=== PATIENT | male | born 1960 | race Two or more races ===

== ENCOUNTER 2023-08-13 13:39 | Inpatient (IN) | payer OTHER, SELFPAY ==
[2023-08-13] VITALS (21 sets, daily range): BP systolic 113–148; BP diastolic 70–86; PULSE 69–77; BMI 23.1
--- NOTE | 2023-08-13 10:29 | ED.GENMED ---
History of Present Illness
General
Chief Complaint: Abnormal Lab Value
Source: patient, records and family
Exam Limitations: none
Time Seen by Provider: 08/13/23 09:40
Nursing documentation reviewed up to this point in time: agreed with
Travel History
Have you had any contact with someone who has COVID-19?: No
Do you have any symptoms of coronavirus? Fever > 100 degrees, chills, cough, shortness of breath, sore throat, loss of taste or smell, muscle aches, or headache?: No
History of Present Illness
History of Present Illness:
63-year-old male originally from [facility] not living in the history of peripheral vascular disease status post bypass surgery Sam maintained on aspirin and Xarelto and statin, no longer on hypertensive meds, recently saw gastroenterology DrYola
Jessica, with some dyspepsia type symptoms, started on a PPI and ordered an upper GI, as he is on Xarelto apparently cannot stop it as he has had recurrent bleeding and clotting requiring repeat surgeries, transfusions daughter states he looks pale
he has had some fatigue, no chest pain no shortness of breath denies any dark or bloody stools never had an upper or lower endoscopy, he is an ex-smoker stopped due to his vascular surgery issues, drinks socially currently not working, previously
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
amenable to a blood transfusion today if needed
Past History
Past History
ED Past Medical History: HTN and Hypercholesterolemia
ED Past Surgical History: Other (vascular sx)
Social History
Tobacco: Former smoker
Alcohol: Occasional
Drug: None
Living: with family
Employment: Retired
Review of Systems
Review of Systems
All Other Systems: Not applicable
Constitutional: Reports fatigue
EENT: Reports no symptoms
Respiratory: Reports no symptoms
Cardiac: Reports no symptoms
ABD/GI: Reports abdominal pain (belching); Denies diarrhea, constipated, black stools or anorexia
: Reports no symptoms
Skin: Reports no symptoms
Neurological: Reports weakness
Endocrine: Reports no symptoms
Hematologic/Lymphatic: Reports no symptoms
Phy Exam
Physical Exam
Physical Exam:
Physical Exam
General: no apparent distress, not acutely ill
Neck: Pallor is present,
Heart: s1/s2 regular rate and rhythm, no murmur. equal radial pulses.
Lungs: No wheeze
Abdomen: Nontender
Neuro: alert and oriented. no focal neurological deficits
Skin: no rash
Psychiatric: well kept. interactive and cooperative
Extremities: Lower extremities are warm and appear well-perfused
Course
Orders/Labs/Results
Orders:
Orders
08/13/23 09:52
Cardiac Monitoring- Treatment ONCE
08/13/23 09:53
Electrocardiogram (*1) Stat
Reason for Study: Other
Other Reason for Exam: GI Bleed
EKG- Treatment ONCE
IV Insert/Care/Rem.- Treatment PRN
08/13/23 10:28
Type+Screen Urgent
Complete Blood Count/With Diff Urgent
Comprehensive Metabolic Panel Urgent
Iron Urgent
PTT Urgent
Prothrombin Time Urgent
TIBC [Total Iron Binding] Urgent
08/13/23 10:54
Add On- LAB Urgent
Tests Added?: iron, ferritin
08/13/23 11:28
Blood Bank Products [* Blood Bank Products] Urgent
Stalin Orders: juany
Blood Bank Products: *Packed RBC Leuko(PRBC's)
Quantity: 2
Transfuse Today: Yes
Reason: Anemia
Pantoprazole [Protonix IV] 40 mg IV NOW STA
Abnormal Lab Results
06/16/24
10:28
RBC 3.25 L 10^6/uL
(4.70-6.10)
Hgb 7.1 L g/dL
(13.0-18.0)
Hct 22.9 L %
(39.0-52.0)
MCV 70.5 L fL
(80.0-94.0)
MCH 21.8 L pg
(27.0-31.0)
MCHC 31.0 L g/dL
(33.0-37.0)
RDW 14.6 H %
(11.5-14.5)
Absolute Lymphs (auto) 0.7 L 10^3/uL
(1.2-3.4)
Absolute Monos (auto) 0.7 H 10^3/uL
(0.1-0.6)
Lymphocytes % 14.3 L %
(20.5-51.1)
Monocytes % 12.7 H %
(1.7-9.3)
PT 16.4 H Sec
(11.4-14.6)
Sodium 134 L mmol/L
(135-145)
Iron 26 L ug/dl
(49-181)
% Saturation 8 L %
(20-50)
AST 15 L U/L
(17-59)
Total Protein 5.7 L g/dl
(6.3-8.2)
Albumin 3.1 L g/dl
(3.5-5.0)
08/13/23 10:28
08/13/23 10:28
Vital Signs
Initial and Last Documented VS:
Initial Vital Signs
Temp Pulse Resp BP Pulse Ox
98.3 F 79 18 129/85 100
08/13/23 09:25 08/13/23 09:25 08/13/23 09:25 08/13/23 09:25 08/13/23 09:25
Last Documented Vital Signs
Temp Pulse Resp BP Pulse Ox
98.3 F 72 18 115/73 99
08/13/23 09:25 08/13/23 10:32 08/13/23 10:32 08/13/23 10:32 08/13/23 11:14
MDM/Problems Addressed
Differential Diagnosis Includes:
Subacute blood loss, upper GI source lower GI source, admitted bowel source,
MDM/Problems Addressed:
Anemia fatigue
Chronic conditions affecting care:
Peripheral vascular disease on aspirin and Xarelto
Acute Exacerbation and/or Progression of Chronic Illness:
Peripheral vascular disease aspirin Xarelto
*Pulse Oximetry
Patient hypoxic: no
*EKG
Interpreted by ED Provider?: Yes
Interpretation: normal
Comparison EKG: no comparison EKG present
Heart Rate: 78
Rate: normal
Ischemia: no ischemia
*Critical Care Note
Total Time (30-74mins, 75-104mins- exclusive of procedures): Not Applicable
Data Reviewed
Review of Other/Old Records Reveals: Labs and Testing
Source: patient and family
Prescriptions/Medications Considered But Not Given:
Xarelto reversal
Further Testing Considered But Not Given:
CT scan
Update Note
Update Note:
Update outpatient labs noted will repeat here check indices for iron stores, patient does already have a rehabilitation therapy aide, was started on a PPI recently, has been consented for blood if needed,
Hemoglobin 7.1 here rectal guaiac negative, believe it would be prudent to transfuse, consent obtained from daughter, family is in agreement
ED Attending Note
-
Portions of this chart may have been created with voice recognition software.� Occasional wrong word or��sound alike� substitutions may have occurred due to the inherent limitations of voice recognition software.
Discharge Plan
Departure
Patient Disposition: Admit
Date of Disposition: 08/13/23
Time of Disposition: 11:48
Admit to: Telemetry
Presentation/result/management discussed w/ accepting MD/DO: Hospitalist
Patient with high blood pressure during this ER visit?: No
Condition: Fair
Covid-19: Not Applicable
Discharge Problem:
Microcytic anemia
Referrals:
Satish Reed MD [Family Provider] -
Interventions
Interventions:
*Risk Screen - Suicide Last Done: 08/13/23 10:19
*General Assessment Last Done: 08/13/23 10:18
*Neglect/Abuse Screening Last Done: 08/13/23 10:18
ED- Fall Risk Assessment Last Done: 08/13/23 10:19
*ED COVID-19 Vaccine History Last Done: 08/13/23 10:18
Discharge Date and Time
Print Language: Ukranian
[2023-08-13 10:38] LABS: % Basophils 0.4 % (0-2); % Eosinophils 2.1 % (0-6); % Immature Granulocytes 0.4 % (0-0.5); % Lymphocytes 14.3 % (20.5-51.1); % Monocytes 12.7 % (1.7-9.3); % Neutrophils 70.1 % (42.2-75.2); Absolute Eosinophils 0.1 10^3/uL (0-0.7); Absolute Lymphocytes 0.7 10^3/uL (1.2-3.4); Absolute Monocytes 0.7 10^3/uL (0.1-0.6); Absolute Neutrophils 3.6 10^3/uL (1.4-6.5); Hematocrit 22.9 % (39.0-52.0); Hemoglobin 7.1 g/dL (13.0-18.0); Mean Corpuscular Hgb 21.8 pg (27.0-31.0); Mean Corpuscular Volume 70.5 fL (80.0-94.0); Mean Platelet Volume 9.1 fL (7.4-10.4); Nucleated Red Blood Cells % 0 % (-); Platelet Count 185 10^3/uL (130-400); Red Blood Cell Count 3.25 10^6/uL (4.70-6.10); Red Cell Dist. Width 14.6 % (11.5-14.5); White Blood Cell Count 5.1 10^3/uL (4.8-10.8)
[2023-08-13 10:48] LABS: INR 1.34; PT 16.4 Sec (11.4-14.6)
[2023-08-13 10:49] LABS: APTT 33.8 Sec (23.4-35.0)
[2023-08-13 10:51] LABS: ALT (SGPT) 11 U/L (0-50); AST (SGOT) 15 U/L (17-59); Albumin 3.1 g/dl (3.5-5.0); Alkaline Phosphatase 72 U/L (38-126); Blood Urea Nitrogen 16 mg/dl (9-20); Calcium 8.8 mg/dl (8.4-10.2); Carbon Dioxide 25 mmol/L (22-30); Chloride 105 mmol/L (98-107); Estimated Creatinine Clearance 59 ml/min; Glucose 90 mg/dl (70-99); Iron 26 ug/dl (49-181); Potassium 4.7 mmol/L (3.5-5.1); Sodium 134 mmol/L (135-145); Total Bilirubin 0.5 mg/dl (0.2-1.3); Total Protein 5.7 g/dl (6.3-8.2); eGFR > 60.00
[2023-08-13 11:00] LABS: Percent Saturation 8 % (20-50); Total Iron Binding Capacity 310 ug/dl (261-462)
[2023-08-13] MEDS: PROTONIX IV 40 MG IV (11:43)
--- NOTE | 2023-08-13 12:10 | PHANOTE ---
08/13/2023, [employer], spoke to pt.'s daughter to obtain pt.'s med. history; per daughter, pt. stopped taking his Valsartan 80 mg (prescribed 1 tablet daily) about a week ago because his BP is not high.
--- NOTE | 2023-08-13 12:51 | HPS.HSE ---
Family Physician
-
Family Physician: Satish Reed
Chief Complaint
-
Fatigue
History of Present Illness
63-year-old man with peripheral vascular disease (status post bypass surgery at [facility]) maintained on aspirin, Xarelto and statin, came in with fatigue. He recently saw a gastroenterology (Dr. Lopez) with dyspepsia symptoms. He was
started on a PPI and ordered an upper GI series. He was told that because he is on Xarelto and cannot stop (he has had clotting, requiring repeat surgeries, and transfusions). His daughter states that he looks pale and has had some fatigue, but no
chest pain, no shortness of breath, dark or bloody stools. He has never had an upper or lower endoscopy. He is an ex-smoker (stopped due to vascular surgery issues), he drinks socially. He had out-patient blood work 2 days ago and his hemoglobin
came back at 7.5 (with low MCV). This was down from his baseline of 12. His PCP told him to go to the ER to get evaluated. his daughter states he has had blood transfusions previously. In the ED he had a hemoglobin of 7.1, heme neg stool.
During my exam he was comfortable.
Medical History
Past Medical History
Past Medical History: Reports Other
Additional Past Medical History:
Essential HTN
Hypercholesterolemia
vasculopathy
microcytic anemia
Past Surgical History: Reports Other
Additional Past Surgical History:
clot removal surgery
LE vascular bypass surgery
Social History
Tobacco: Non-smoker
Alcohol: Occasional
Drug: None
Living: With Family
Employment: Not Employed
Family History
Family History: Not pertinent
Allergies / Home Medications
Allergies reflects when Allergies were last updated in [facility].
Home Medications with original date entered in [employer]
Allergy/Medication List:
Allergies
Allergy/AdvReac Type Severity Reaction Status Date / Time
No Known Allergies Allergy Unverified 08/13/23 09:30
Home Medications
aspirin 81 mg tablet,delayed release 81 mg PO QPM 08/13/23
atorvastatin 40 mg tablet 40 mg PO QPM 08/13/23
pantoprazole 40 mg tablet,delayed release 40 mg PO DAILY 08/13/23
rivaroxaban 20 mg tablet (Xarelto) 20 mg PO DAILY 08/13/23
Review of Systems
-
History Source: Patient
A 12 point ROS was completed and negative except as noted: Yes
Physical Exam
Vital Signs
Vital Signs
Temp Pulse Resp BP Pulse Ox
98.3 F 72 18 115/73 99
08/13/23 09:25 08/13/23 10:32 08/13/23 10:32 08/13/23 10:32 08/13/23 11:14
Physical Exam
General: Well Developed, Well Nourished, No Apparent Distress and Comfortable
HEENT: NormoCephalic, Anicteric, Moist mucous membranes, Atraumatic, No Ptosis, Nose Appears Normal and Ears Appear Normal
Respiratory: Clear
Cardiac: S1/S2 and Regular Rhythm
GI: Soft, Non Tender and Non Distended
Musculoskeletal: No Clubbing, No Cyanosis and No Edema
Skin: Warm and Dry; No Rash or Jaundice
Neuro: Awake, Alert, Oriented and AO x 3
Psych: Calm
Laboratory Results
-
08/13/23 10:28
08/13/23 10:28
Laboratory Results
PT 16.4 Sec (11.4-14.6) H 08/13/23 10:28
INR 1.34 08/13/23 10:28
APTT 33.8 Sec (23.4-35.0) 08/13/23 10:28
Total Bilirubin 0.5 mg/dl (0.2-1.3) 08/13/23 10:28
AST 15 U/L (17-59) L 08/13/23 10:28
ALT 11 U/L (0-50) 08/13/23 10:28
Alkaline Phosphatase 72 U/L (38-126) 08/13/23 10:28
Data Reviewed
-
Lab Data: Labs Reviewed by me
Impression/Plan
-
IMPRESSION:
63 man with GI bleed, source not known. Significant findings:
H/H 7.1/22.9
BP 115/73
Pulse 72
Heme neg rectal exam in ED
PLAN:
1. GIB - vitals stable
GI consult
Anticogulation strategy complex
Need to coordinate with posible procedure, if warranted
If kept NPO for procedure, heparin gtt may be useful
Blood transfusion
2 units ordered in ED
IV PPI
Hold other meds/food for now
H/H Q6h
Code: Full
VCD for DVTp (as well as what GI recommends)
[2023-08-13 13:39] LABS: Ferritin 7.8 ng/ml (17.9-464.0)
--- NOTE | 2023-08-13 13:44 | EDRN ---
This RN verified with Dr. Vasquez that both units of PRBC are to infuse prior to starting the Heparin gtt.
[2023-08-13 16:51] LABS: Hematocrit 26.6 % (39.0-52.0); Hemoglobin 8.4 g/dL (13.0-18.0); Mean Corp Hgb Conc. 31.6 g/dL (33.0-37.0); Mean Corpuscular Hgb 22.7 pg (27.0-31.0); Mean Corpuscular Volume 71.9 fL (80.0-94.0); Mean Platelet Volume 9.4 fL (7.4-10.4); Platelet Count 202 10^3/uL (130-400); Red Cell Dist. Width 15.4 % (11.5-14.5); White Blood Cell Count 5.6 10^3/uL (4.8-10.8)
[2023-08-13 17:04] LABS: APTT 31.6 Sec (23.4-35.0)
[2023-08-13] MEDS: HEPARIN 25000 UNITS/250 ML IV (21:38)
[2023-08-13] MEDS: NSS 1000 IV (21:39)
[2023-08-13 23:37] LABS: Hematocrit 28.6 % (39.0-52.0)
[2023-08-14 03:30] VITALS: BP 122/63; BP 128/77; BP 132/79; PULSE 77; PULSE 82; PULSE 84
[2023-08-14 04:24] LABS: APTT 52.9 Sec (23.4-35.0)
[2023-08-14] MEDS: NSS 1000 IV (05:47)
[2023-08-14 07:00] LABS: Hematocrit 27.7 % (39.0-52.0); Hemoglobin 9.1 g/dL (13.0-18.0); Mean Corp Hgb Conc. 32.9 g/dL (33.0-37.0); Mean Corpuscular Hgb 23.8 pg (27.0-31.0); Mean Corpuscular Volume 72.3 fL (80.0-94.0); Mean Platelet Volume 9.6 fL (7.4-10.4); Platelet Count 150 10^3/uL (130-400); Red Blood Cell Count 3.83 10^6/uL (4.70-6.10); Red Cell Dist. Width 14.9 % (11.5-14.5); White Blood Cell Count 4.2 10^3/uL (4.8-10.8)
[2023-08-14 07:48] LABS: Blood Urea Nitrogen 15 mg/dl (9-20); Calcium 8.5 mg/dl (8.4-10.2); Carbon Dioxide 21 mmol/L (22-30); Chloride 106 mmol/L (98-107); Estimated Creatinine Clearance 72 ml/min; Glucose 64 mg/dl (70-99); Potassium 4.4 mmol/L (3.5-5.1); Sodium 135 mmol/L (135-145); eGFR > 60.00
[2023-08-14 08:00] VITALS: BP 133/69
[2023-08-14] MEDS: PROTONIX IV 40 MG IV (08:46)
[2023-08-14] MEDS: NSS (PRESERVATIVE FREE) 10 ML IV (08:47)
[2023-08-14 11:54] LABS: APTT 60.5 Sec (23.4-35.0)
--- NOTE | 2023-08-14 14:31 | W.PN.HOSP.TC ---
Today's Communication/Plan
-
trend cbc
iv iron
anticipate egd/ C-Scope tomorrow
Assessment / Plan
Assessment / Plan
Physical Exam
General: Well Developed, Well Nourished, No Apparent Distress and Comfortable
HEENT: NormoCephalic, Anicteric, Moist mucous membranes, Atraumatic, No Ptosis, Nose Appears Normal and Ears Appear Normal
Respiratory: Clear
Cardiac: S1/S2 and Regular Rhythm
GI: Soft, Non Tender and Non Distended
Musculoskeletal: No Clubbing, No Cyanosis and No Edema
Skin: Warm and Dry; No Rash or Jaundice
Neuro: Awake, Alert, Oriented and AO x 3
Psych: Calm
#Acute, acute v chronic
# Iron deficiency anemia
� Transfused 2 units PRBC
� Start IV iron
� Clinical diet, n.p.o. at midnight
� Continue PPI IV
� Follow serial CBCs
� Ensure hemoglobin greater than 7, transfuse as necessary
#Coagulopathy
� As per patient/family, cannot stop anticoagulation as had clotting requiring repeat surgeries
� On heparin drip for now, closely monitor CBC and may need to stop anticoagulation if continue to trend down
#PVD
� Continue aspirin, Xarelto, statin
#DVT prophylaxis
� Heparin drip, SCDs
Anticipated Discharge: 24 - 48 hours
Subjective/Interval History
-
Date of Service: August 14, 2023
monitoring hgb
Objective Data
-
Labs:
Laboratory Results
08/14/23 08/14/23 08/14/23
04:06 05:57 11:34
WBC 4.2 L
Hgb 9.1 L
Hct 27.7 L
Plt Count 150 D
APTT 52.9 H 60.5 H
Sodium 135
Potassium 4.4
Chloride 106
Carbon Dioxide 21 L
BUN 15
Creatinine 0.9
Glucose 64 L
Calcium 8.5
08/14/23
19:30
WBC
Hgb
Hct
Plt Count
APTT Pending
Sodium
Potassium
Chloride
Carbon Dioxide
BUN
Creatinine
Glucose
Calcium
Vital Signs:
Vital Signs
Temp Pulse Resp BP Pulse Ox
98.3 F 74 16 133/69 99
08/14/23 08:00 08/14/23 08:00 08/14/23 08:00 08/14/23 08:00 08/14/23 13:37
I&O
08/13/23 08/14/23 08/15/23
06:59 06:59 06:59
Intake Total 1929 / 1929
Output Total 850 / 850
Balance 1080 / 1080
Review of Systems
-
History Source: Patient
All other systems: Not reviewed unless documented
Data Reviewed
-
Labs: Labs Reviewed by me
--- NOTE | 2023-08-14 14:37 | CON.GI ---
Addendum entered and electronically signed by Quintin Gomez MD 08/14/23 16:31:
I saw and examined the patient.
The TRAFFIC OPERATOR's note was reviewed and I agree with the note.
Impression:
Microcytic anemia, new(baseline hemoglobin 12). No prior EGD or colonoscopy.
History of peripheral vascular disease status post bypass surgery, need for lifelong anticoagulation. Last Xarelto 08/11
Dysphagia to both liquids and solids ongoing since May
Early satiety
plan
Clear liquid diet today
Discussed with patient/daughter about EGD/colonoscopy. They are agreeable. Will schedule for EGD/colonoscopy tomorrow
Bowel prep today
Hold heparin drip at 5 AM tomorrow
Original Note:
Consultation
-
Date/Time Consultation Requested: 08/13/23 1633
Date/Time Consultation Performed: 08/14/23 1400
Requesting Provider: Dr. Vasquez
Performing Provider: Dr. Gomez/MAX Chandler
Reason for Consultation: anemia, dysphagia, on AC
Medical History
Chief Complaint / HPI
Chief Complaint: anemia
History of Present Illness:
63-year-old male, Romansh speaking (translation performed by daughter at bedside, patient request) with history of peripheral vascular disease status post bypass surgery at [facility] currently on aspirin 81 mg daily as well as
Xarelto (last dose 08/12/2023 am), hypertension, repeat lower extremity clots who was seen hematology at [facility] prior presents to the emergency room after being told that his hemoglobin was low. We are asked to evaluate for the same as
well as dysphagia. The patient had recently been seen by Dr. Lopez (gastroenterology) for dysphagia to solids as well as feelings with liquid since May. The patient also has some intermittent early satiety as well. He was supposed to have an
upper GI but this has not been performed. He was found to have a hemoglobin of 7.5, prior hemoglobin was 12. Stools negative for occult blood in the ER. The patient has some weight loss but unable to quantify. The patient denies any fevers,
chills, nausea, vomiting, melena, hematochezia or odynophagia. He is on aspirin 81 mg daily. He does not take any other NSAIDs. He was a prior smoker (quit 2021), he drinks approximately 3-4 beers a week. Upon arrival in the emergency room here
his hemoglobin was 7.1. He was transfused 2 units of packed red blood cells with hemoglobin going up to 9.1. Currently the patient is on a heparin drip. He is agreeable to endoscopy and colonoscopy at this time.
Past Medical History
Past Medical History: HTN and Other (Peripheral vascular disease, recurrent lower extremity clots (daughter states he needs to be on lifelong anticoagulation))
Past Surgical History: Other (Lower extremity stenting, lower extremity vascular bypass, clot removal)
Social History
Tobacco: Former Smoker
Alcohol: Occasional (3-4 beers on weekends)
Drug: None
Living: With Family
Employment: Not Employed
Family History
Family History: Other (No family history of gastrointestinal malignancy or IBD)
Allergies / Home Medications
Allergy/AdvReac Type Severity Reaction Status Date / Time
No Known Allergies Allergy Unverified 08/13/23 09:30
�Medication �Instructions �Recorded
aspirin 81 mg tablet,delayed 81 mg PO QPM Blood Clot 08/13/23
release Prevention/Tx
atorvastatin 40 mg tablet 40 mg PO QPM High Cholesterol 08/13/23
pantoprazole 40 mg tablet,delayed 40 mg PO DAILY Gastrointestinal 08/13/23
release Issue
rivaroxaban 20 mg tablet (Xarelto) 20 mg PO DAILY Blood Clot 08/13/23
Prevention/Tx
Review of Systems
-
All other systems: A 12 pt ROS was Negative except as stated above in HPI
Vital Signs
Temp Pulse Resp BP Pulse Ox
98.3 F 74 16 133/69 99
08/14/23 08:00 08/14/23 08:00 08/14/23 08:00 08/14/23 08:00 08/14/23 13:37
Physical Exam
Exam
General: No Apparent Distress
HEENT: Anicteric
Respiratory: Clear (Anterior)
Cardiac: Regular Rhythm
GI: Soft, Non Tender, Non Distended and Normal Bowel Sounds
Skin: Warm and Dry
Psych: Calm
Results
WBC 4.2 10^3/uL (4.8-10.8) L 08/14/23 05:57
Hgb 9.1 g/dL (13.0-18.0) L 08/14/23 05:57
Hct 27.7 % (39.0-52.0) L 08/14/23 05:57
MCV 72.3 fL (80.0-94.0) L 08/14/23 05:57
Plt Count 150 10^3/uL (130-400) D 08/14/23 05:57
Absolute Neuts (auto) 3.6 10^3/uL (1.4-6.5) 08/13/23 10:28
PT 16.4 Sec (11.4-14.6) H 08/13/23 10:28
INR 1.34 08/13/23 10:28
APTT 60.5 Sec (23.4-35.0) H 08/14/23 11:34
Sodium 135 mmol/L (135-145) 08/14/23 05:57
Potassium 4.4 mmol/L (3.5-5.1) 08/14/23 05:57
Chloride 106 mmol/L (98-107) 08/14/23 05:57
Carbon Dioxide 21 mmol/L (22-30) L 08/14/23 05:57
BUN 15 mg/dl (9-20) 08/14/23 05:57
Creatinine 0.9 mg/dL (0.7-1.3) 08/14/23 05:57
Calcium 8.5 mg/dl (8.4-10.2) 08/14/23 05:57
Total Bilirubin 0.5 mg/dl (0.2-1.3) 08/13/23 10:28
AST 15 U/L (17-59) L 08/13/23 10:28
ALT 11 U/L (0-50) 08/13/23 10:28
Alkaline Phosphatase 72 U/L (38-126) 08/13/23 10:28
Diagnostic Image Results:
none
Prior GI Procedures:
EGD: Never
Colonoscopy: Never
Assessment / Plan
-
63-year-old male, Romansh speaking (translation performed by daughter at bedside, patient request) with history of peripheral vascular disease status post bypass surgery at [facility] currently on aspirin 81 mg daily as well as
Xarelto (last dose 08/12/2023 am), hypertension, repeat lower extremity clots who was seen hematology at [facility] prior presents to the emergency room after being told that his hemoglobin was low. We are asked to evaluate for the same as
well as dysphagia. The patient had recently been seen by Dr. Lopez (gastroenterology) for dysphagia to solids as well as feelings with liquid since May. The patient also has some intermittent early satiety as well. Presents with a hemoglobin
of 7.1, transfused 2 units packed red cells with hemoglobin coming up to 9.1. Last dose of Xarelto was on 08/12/2023 in the am. He is currently on a heparin drip. He is agreeable to endoscopy and colonoscopy.
Impression:
Microcytic anemia, new(baseline hemoglobin 12)
History of peripheral vascular disease status post bypass surgery, need for lifelong anticoagulation
Dysphagia to both liquids and solids ongoing since May
Early satiety
Plan:
-Clear liquid diet
-EGD/colonoscopy planned for tomorrow
-Continue pantoprazole
-CBC, BMP, PTT, PT in am
-Further recommendations to be forthcoming
-
-
Thank you for consultation and allowing me to participate in the patient's care. Please call the contract administration manager GI physician during the after hours with any questions or concerns.
[2023-08-14 14:54] LABS: Hematocrit 28.6 % (39.0-52.0); Hemoglobin 9.3 g/dL (13.0-18.0); Mean Corp Hgb Conc. 32.5 g/dL (33.0-37.0); Mean Corpuscular Hgb 23.7 pg (27.0-31.0); Mean Platelet Volume 9.1 fL (7.4-10.4); Platelet Count 167 10^3/uL (130-400); Red Blood Cell Count 3.92 10^6/uL (4.70-6.10); Red Cell Dist. Width 14.8 % (11.5-14.5)
[2023-08-14] MEDS: FERRLECIT 110 MG IV (15:16)
[2023-08-14] MEDS: HEPARIN 25000 UNITS/250 ML IV (15:43)
[2023-08-14 16:00] VITALS: BP 127/78
--- NOTE | 2023-08-14 16:40 | CM ---
manager dish reviewed patient's chart and met with patient and patient lives with daughter in a 2 story home, patient is independent with adl's and ambulation, no dme, patient has a prescription plan and uses [facility] pharmacy.
PCP: Dr. Satish Vásquez
Plan; Home with daughter when stable.
[2023-08-14] MEDS: NULYTELY SOLUTION 4 LITERS PO (18:40)
[2023-08-14 19:09] LABS: Hepatitis C Antibody Negative (Negative)
[2023-08-14 23:00] VITALS: BP 127/85
[2023-08-15] VITALS (7 sets, daily range): BP systolic 10–148; BP diastolic 73–87
[2023-08-15 03:33] LABS: % Basophils 0.5 % (0-2); % Eosinophils 3.8 % (0-6); % Immature Granulocytes 1.3 % (0-0.5); % Lymphocytes 20.2 % (20.5-51.1); % Neutrophils 62.2 % (42.2-75.2); Absolute Eosinophils 0.2 10^3/uL (0-0.7); Absolute Immature Granulocytes 0.1 10^3/uL (0-0.05); Absolute Lymphocytes 0.8 10^3/uL (1.2-3.4); Absolute Monocytes 0.5 10^3/uL (0.1-0.6); Absolute Neutrophils 2.4 10^3/uL (1.4-6.5); Hematocrit 26.4 % (39.0-52.0); Hemoglobin 8.7 g/dL (13.0-18.0); Mean Corpuscular Hgb 23.6 pg (27.0-31.0); Mean Corpuscular Volume 71.5 fL (80.0-94.0); Mean Platelet Volume 9.2 fL (7.4-10.4); Nucleated Red Blood Cells % 0 % (-); Platelet Count 173 10^3/uL (130-400); Red Blood Cell Count 3.69 10^6/uL (4.70-6.10); Red Cell Dist. Width 15.2 % (11.5-14.5); White Blood Cell Count 3.9 10^3/uL (4.8-10.8)
[2023-08-15 03:51] LABS: INR 1.11; PT 14.2 Sec (11.4-14.6)
[2023-08-15 03:52] LABS: APTT 70.7 Sec (23.4-35.0)
[2023-08-15 04:16] LABS: ALT (SGPT) 11 U/L (0-50); AST (SGOT) 18 U/L (17-59); Albumin 2.8 g/dl (3.5-5.0); Alkaline Phosphatase 68 U/L (38-126); Blood Urea Nitrogen 12 mg/dl (9-20); Calcium 8.7 mg/dl (8.4-10.2); Carbon Dioxide 21 mmol/L (22-30); Chloride 106 mmol/L (98-107); Estimated Creatinine Clearance 65 ml/min; Glucose 77 mg/dl (70-99); Potassium 4.3 mmol/L (3.5-5.1); Sodium 135 mmol/L (135-145); Total Bilirubin 0.5 mg/dl (0.2-1.3); Total Protein 5.3 g/dl (6.3-8.2); eGFR > 60.00
[2023-08-15 06:52] LABS: APTT 35.6 Sec (23.4-35.0)
[2023-08-15] MEDS: NSS (PRESERVATIVE FREE) 10 ML IV (08:22)
[2023-08-15] MEDS: PROTONIX IV 40 MG IV (08:23)
[2023-08-15] MEDS: FERRLECIT 110 MG IV (13:04)
[2023-08-15] MEDS: OMNIPAQUE 50 ML PO (13:04)
--- NOTE | 2023-08-15 13:12 | PTCARENOTE ---
Pt returned from PACU after GI procedures. B/P 144/87; p-51; pox 98%RA. Pt drinking oral contrast for CT Abd/Pel as ordered. Daughter at bedside.
--- NOTE | 2023-08-15 14:19 | CM ---
Home with daughter no needs.
Plan; Home to daughters house no needs.
--- NOTE | 2023-08-15 14:27 | W.PN.UPDATE ---
Update Note
Progress Note Update
d/w daughter and onc re findings on egd
--- NOTE | 2023-08-15 14:28 | W.PN.HOSP.TC ---
Today's Communication/Plan
-
f/u bx
FLD
CT C/A/P
F/u GI recs
Assessment / Plan
Assessment / Plan
Physical Exam
General: Well Developed, Well Nourished, No Apparent Distress and Comfortable
HEENT: NormoCephalic, Anicteric, Moist mucous membranes, Atraumatic, No Ptosis, Nose Appears Normal and Ears Appear Normal
Respiratory: Clear
Cardiac: S1/S2 and Regular Rhythm
GI: Soft, Non Tender and Non Distended
Musculoskeletal: No Clubbing, No Cyanosis and No Edema
Skin: Warm and Dry; No Rash or Jaundice
Neuro: Awake, Alert, Oriented and AO x 3
Psych: Calm
#Acute, acute v chronic Anemia
#Esophageal/Gastric Tumor
� Transfused 2 units PRBC
� CT C/A/P w/ contrast
- can attempt FLD
� Continue PPI IV
� Follow serial CBCs
� Ensure hemoglobin greater than 7, transfuse as necessary
- GI spoke to Onc - NTD immediately at this time; f/u imaging, Biopsies from [place]
-May need a stent, will await Gi recs depending on tolerability of diet
#Coagulopathy
� As per patient/family, cannot stop anticoagulation as had clotting requiring repeat surgeries
� restart hep ggt slowly this evening
#PVD
� Continue aspirin, Xarelto, statin
#DVT prophylaxis
� Heparin drip, SCDs
Total time spent on today's encounter was 50 minutes which included time spent in counseling the patient/family regarding diagnosis and treatment plan as listed above, goals of care, and symptom management. Case was discussed with nursing staff,
specialists, and care coordinators/case management. All labs and imaging personally reviewed by me. Remainder the time spent in detailed review of previous records, lab data, imaging, and other medical provider documentation.
Anticipated Discharge: 24 - 48 hours
Subjective/Interval History
-
Date of Service: August 15, 2023
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 Biopsied
Objective Data
-
Labs:
Laboratory Results
08/15/23 08/15/23
03:26 06:20
WBC 3.9 L
Hgb 8.7 L
Hct 26.4 L
Plt Count 173
PT 14.2
INR 1.11
APTT 70.7 H 35.6 H
Sodium 135
Potassium 4.3
Chloride 106
Carbon Dioxide 21 L
BUN 12
Creatinine 1.0
Glucose 77
Calcium 8.7
Total Bilirubin 0.5
AST 18
ALT 11
Alkaline Phosphatase 68
Vital Signs:
Vital Signs
Temp Pulse Resp BP Pulse Ox
97.4 F 51 16 144/87 98
08/15/23 13:13 08/15/23 13:13 08/15/23 13:13 08/15/23 13:13 08/15/23 13:13
I&O
08/14/23 08/15/23 08/16/23
06:59 06:59 06:59
Intake Total 1930 / 1930 1300 / 1300
Output Total 850 / 850 215 / 215
Balance 1080 / 1080 -850 / -850
Review of Systems
-
History Source: Patient
All other systems: Not reviewed unless documented
Data Reviewed
-
Medical Tests (Nuc Med, Echo etc): Report Reviewed by me
Labs: Labs Reviewed by me
[2023-08-15] MEDS: HEPARIN 25000 UNITS/250 ML IV (16:55)
--- NOTE | 2023-08-15 16:58 | PTCARENOTE ---
Pt's heparin ordered to start 1t 1600. Pt was downstairs for a CT scan until 1655. Dr. Stacy aware and Heparin started at 1655 when pt returned.
[2023-08-16 00:04] LABS: APTT 56.8 Sec (23.4-35.0)
[2023-08-16] MEDS: HEPARIN 25000 UNITS/250 ML IV (00:26)
--- NOTE | 2023-08-16 06:47 | DOWNTIME ---
There was a [employer] Client End Trimmer Downtime on 08/16/2023 from 0100 to 08/16/2023 at 0337. Downtime documentation of patient's care, including medication administrations, has been reconciled in the electronic record per guidelines. Refer to the
patient's paper chart under the miscellaneous tab to see printed paper medication records and downtime forms.
[2023-08-16 07:31] LABS: APTT 95.8 Sec (23.4-35.0)
[2023-08-16 07:32] VITALS: BP 121/77
[2023-08-16 08:11] LABS: ALT (SGPT) 10 U/L (0-50); AST (SGOT) 17 U/L (17-59); Albumin 2.9 g/dl (3.5-5.0); Alkaline Phosphatase 71 U/L (38-126); Blood Urea Nitrogen 8 mg/dl (9-20); Calcium 8.8 mg/dl (8.4-10.2); Carbon Dioxide 21 mmol/L (22-30); Chloride 105 mmol/L (98-107); Estimated Creatinine Clearance 59 ml/min; Glucose 74 mg/dl (70-99); Potassium 4.1 mmol/L (3.5-5.1); Sodium 136 mmol/L (135-145); Total Bilirubin 0.3 mg/dl (0.2-1.3); Total Protein 5.3 g/dl (6.3-8.2); eGFR > 60.00
[2023-08-16] MEDS: PROTONIX IV 40 MG IV (08:31)
[2023-08-16] MEDS: NSS (PRESERVATIVE FREE) 10 ML IV (08:32)
--- NOTE | 2023-08-16 09:00 | CON.ONC ---
Impression
Impression
Esophageal/Gastric (GE JUNCTION) mass
Fe Def anemia from chronic blood loss
Coagulopathy
� As per patient/family, cannot stop anticoagulation as had clotting requiring repeat surgeries. On IV heparin
PVD
� Continue aspirin, Xarelto will be given outpt
Plan
Plan
Await Bx.
CT C/A/P neg for mets.
Will need outpt EUS, PET for staging.
Suggest FLOT then surgery based on new ESOPEC trial presented this moth at [facility].
Office F/U being arranged.
Patient History
History of Present Illness
Chief Complaint: anemia & GE Junction mass
HPI:
63-year-old male, Upper Sorbian speaking (translation performed by daughter, patient request) referred to ER for HgB 7.1 (MCV = 70), ferritin = 8. EGD 08/14: A large, ulcerating mass with bleeding in the lower third of the esophagus and in the gastric
cardia, 38 cm from the incisors. The mass was completely obstructing and partially circumferential (involving two thirds of the lumen circumference). Biopsies were taken. He has noted dysphagia of both solids and liquids past 6 weeks. No weight
loss that he can quantify. He denies nausea, vomiting, melena, hematochezia.
Past-Medical/Surgical History
PMH: HTN, Peripheral vascular disease, recurrent lower extremity clots (daughter states he needs to be on lifelong anticoagulation)
PSH: Lower extremity stenting, lower extremity vascular bypass, clot removal
SH:
Tobacco: Former Smoker, quit 2021
Alcohol: Occasional (3-4 beers on weekends)
Drug: None
Living: With Family
Employment: Not Employed
Family History
Family History: Other (No family history of gastrointestinal malignancy)
Patient Medication
�Medication �Instructions �Recorded �Confirmed �Last Taken �Type
aspirin 81 mg tablet,delayed 81 mg PO QPM Blood Clot 06/08/13/23 08/12/23 History
release Prevention/Tx
atorvastatin 40 mg tablet 40 mg PO QPM High Cholesterol 08/13/23 08/13/23 08/12/23 History
pantoprazole 40 mg tablet,delayed 40 mg PO DAILY Gastrointestinal 08/13/23 08/13/23 08/13/23 History
release Issue
rivaroxaban 20 mg tablet (Xarelto) 20 mg PO DAILY Blood Clot 08/13/23 08/13/23 08/12/23 History
Prevention/Tx
Active Medications
Generic Name Dose Route Start Last Admin
Trade Name Freq PRN Reason Stop Dose Admin
Heparin Sodium 25,000 units in 250 mls @ 0 mls/hr 08/15/23 14:32 08/16/23 00:26
Heparin 62436 Units/250 Ml IV 250 mls
PER PROTOCOL LARRY Administration
Protocol
Per Protocol
Pantoprazole Sodium 40 mg 08/14/23 08:00 08/16/23 08:31
Pantoprazole Sodium 40 Mg/10 Ml Vial IV 09/11/23 07:59 40 mg
DAILY LARRY Administration
Sodium Chloride 0 flush 08/13/23 17:00
Sodium Chloride 0.9% (Flush) Syringe IV 09/10/23 16:59
PER PROTOCOL LARRY
Sodium Chloride 10 ml 08/14/23 08:00 08/16/23 08:32
Sodium Chloride 0.9% (Preservative Free) 10 Ml Vial IV 09/11/23 07:59 10 ml
DAILY LARRY Administration
Physical Exam
-
General: Well Developed, Well Nourished, No Apparent Distress and Comfortable
HEENT: Negative Jaundice
Cardiology: Normal Sinus Rhythm, S1 and S2
Pulmonary: Clear
GI: Soft and Normal Bowel Sounds
Extremities: No C/C/E
Labs
Lab Results
WBC 3.9 10^3/uL (4.8-10.8) L 08/15/23 03:26
RBC 3.69 10^6/uL (4.70-6.10) L 08/15/23 03:26
Hgb 8.7 g/dL (13.0-18.0) L 08/15/23 03:
Hct 26.4 % (39.0-52.0) L 08/15/23 03:
MCV 71.5 fL (80.0-94.0) L 08/15/23 03:
MCH 23.6 pg (27.0-31.0) L 08/15/23 03:
MCHC 33.0 g/dL (33.0-37.0) 08/15/23 03:
RDW 15.2 % (11.5-14.5) H 08/15/23 03:26
Plt Count 173 10^3/uL (130-400) 08/15/23 03:
MPV 9.2 fL (7.4-10.4) 08/15/23 03:
Abs Immat Gran (auto) 0.1 10^3/uL (0-0.05) H 08/15/23 03:
Absolute Neuts (auto) 2.4 10^3/uL (1.4-6.5) 08/15/23 03:26
Absolute Lymphs (auto) 0.8 10^3/uL (1.2-3.4) L 08/15/23 03:
Absolute Monos (auto) 0.5 10^3/uL (0.1-0.6) 08/15/23 03:
Absolute Eos (auto) 0.2 10^3/uL (0-0.7) 08/15/23 03:
Absolute Basos (auto) 0.0 10^3/uL (0-0.2) 08/15/23 03:
Immature Gran % 1.3 % (0-0.5) H 08/15/23 03:
Neutrophils % 62.2 % (42.2-75.2) 08/15/23 03:
Lymphocytes % 20.2 % (20.5-51.1) L 08/15/23 03:26
Monocytes % 12.0 % (1.7-9.3) H 08/15/23 03:26
Eosinophils % 3.8 % (0-6) 08/15/23 03:26
Basophils % 0.5 % (0-2) 08/15/23 03:26
Creatinine 1.1 mg/dL (0.7-1.3) 08/16/23 06:17
Vital Signs
Vital Signs
Temp Pulse Resp BP Pulse Ox
97.9 F 69 18 121/77 98
08/16/23 07:32 08/16/23 07:32 08/16/23 07:32 08/16/23 07:32 08/16/23 07:32
--- NOTE | 2023-08-16 09:24 | W.PN.HOSP.TC ---
Addendum entered and electronically signed by Kyaw Stacy MD 08/17/23 15:21:
[id number]
Original Note:
Today's Communication/Plan
-
-Pur�ed diet, Ensure�follow-up with GI office if having problems/vomiting
� Will need outpatient EUS, PET for staging. GI is working with vascular to confirm that Xarelto can be held for 2 days prior to EUS. Tentative plan for EUS on August 31; may need stent depending on clinical course
� Continue PPI
-F/u CBC in 5-7 days
F/u GI, Onc outpatient
Assessment / Plan
Assessment / Plan
Physical Exam
General: Well Developed, Well Nourished, No Apparent Distress and Comfortable
HEENT: NormoCephalic, Anicteric, Moist mucous membranes, Atraumatic, No Ptosis, Nose Appears Normal and Ears Appear Normal
Respiratory: Clear
Cardiac: S1/S2 and Regular Rhythm
GI: Soft, Non Tender and Non Distended
Musculoskeletal: No Clubbing, No Cyanosis and No Edema
Skin: Warm and Dry; No Rash or Jaundice
Neuro: Awake, Alert, Oriented and AO x 3
Psych: Calm
#Acute, acute v chronic Anemia
#Esophageal/Gastric Tumor
� Transfused 2 units PRBC
� CT C/A/P w/ contrast�no evidence of metastasis
-Pur�ed diet, Ensure�follow-up with GI office if having problems/vomiting
� Will need outpatient EUS, PET for staging. GI is working with vascular to confirm that Xarelto can be held for 2 days prior to EUS. Tentative plan for EUS on August 31; may need stent depending on clinical course
� Continue PPI
-F/u CBC in 5-7 days
F/u GI, Onc outpatient
#Coagulopathy
� As per patient/family, cannot stop anticoagulation as had clotting requiring repeat surgeries
� was on hep ggt - resume xarelto today
-F/u GI recs for holding xarelto prior to EUS
#PVD
� Continue aspirin, Xarelto, statin
#DVT prophylaxis
� Heparin drip, SCDs
More than 30 minutes spent in discharge including
Final examination of the patient
Summarizing hospital stay
Instructions for continuing care to all relevant caregivers
Preparation of discharge records, prescriptions, and referral forms
Total time spent (35 in minutes):
Anticipated Discharge: Today
Subjective/Interval History
-
Date of Service: August 16, 2023
No acute events
Objective Data
-
Labs:
Laboratory Results
08/15/23 08/16/23 08/16/23
23:17 06:17 12:15
APTT 56.8 H 95.8 H Pending
Sodium 136
Potassium 4.1
Chloride 105
Carbon Dioxide 21 L
BUN 8 L
Creatinine 1.1
Glucose 74
Calcium 8.8
Total Bilirubin 0.3
AST 17
ALT 10
Alkaline Phosphatase 71
Vital Signs:
Vital Signs
Temp Pulse Resp BP Pulse Ox
97.9 F 69 18 121/77 98
08/16/23 07:32 08/16/23 07:32 08/16/23 07:32 08/16/23 07:32 08/16/23 07:32
I&O
08/15/23 08/16/23 08/17/23
06:59 06:59 06:59
Intake Total 1300 / 1300 720 / 720
Output Total 2150 / 2150 1700 / 1700
Balance -850 / -850 -980 / -980
Review of Systems
-
History Source: Patient
All other systems: Not reviewed unless documented
Data Reviewed
-
Medical Tests (Nuc Med, Echo etc): Report Reviewed by me
Labs: Labs Reviewed by me
[2023-08-16 10:08] LABS: CEA 2.09 ng/ml
--- NOTE | 2023-08-16 10:53 | W.PN.GI.CBS2 ---
Addendum entered and electronically signed by Barb Bryson MD 08/16/23 15:12:
updated daughter - path with adenoCa on upper GI tract
Also one polyp in colon with adenoCa
will wait for stains
Addendum entered and electronically signed by Barb Bryson MD 08/16/23 11:40:
50 min spent on coordination of care for patient
Addendum entered and electronically signed by Barb Bryson MD 08/16/23 11:35:
I saw and examined the patient.
The PAVER LAYER or PA's note was reviewed and I agree with the note.
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 CAT scan reviewed no metastatic disease. Discussed with oncology at length. Recommend PET
scan and EUS as outpatient screening workup. Discussed with Dr. Fontaine oncology who recommends no stent at this time. Discussed with hospitalist. Plan for discharge on Xarelto. We will reach out to patient's vascular surgeon and ensure we can
hold Xarelto for 2 days prior to endoscopic ultrasound. I discussed with Dr. Fontaine from his standpoint it would be okay to hold it 48 hours prior. We will schedule the endoscopic ultrasound tentatively August 31 until we discussed with Dr. Morgan
advanced endo. Used Kiswahili nurse sane [phone]. Extensive time spent in coordination of care.
Original Note:
Today's Communication / Plan
-
s/p EGD/colon as noted with concern for mass-- path pending
cont pureed diet-with some fullness with eating - will add supplement BID
will need EUS. Dr. Bryson to review with Dr. Fontaine also any role for esophageal stent and arrange as no EUS availability this week at
updated daughter and pt with use of language line
remains on heparin will need to decide on need for IP vs OP testing and need for Lovenox Bridge
Assessment / Plan
-
Pt is a 63yo with hx of peripheral vascular disease status post bypass surgery at [facility] currently on aspirin 81 mg daily as well as Xarelto hypertension, repeat lower extremity clots who was seen hematology at [facility] prior presents to the emergency room after being told that his hemoglobin was low. He is noted with dysphagia since May as well as early satiety.
08/14 colonoscopy normal ileum, 1 cm HF polyp, 3 - 5-7 mm polyp TC and AC, IH, anal papilla hypertrophied
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
Impression:
esophageal/gastric mass- path pending
Microcytic anemia, new(baseline hemoglobin 12)
History of peripheral vascular disease status post bypass surgery, need for lifelong anticoagulation
Dysphagia to both liquids and solids ongoing since May
Early satiety
Plan:
s/p EGD/colon as noted with concern for mass-- path pending
cont pureed diet-with some fullness with eating - will add supplement BID
will need EUS. Dr. Bryson to review with Dr. Fontaine also any role for esophageal stent and arrange as no EUS availability this week at
updated daughter and pt with use of language line
remains on heparin will need to decide on need for IP vs OP testing and need for Lovenox Bridge
Subjective
Subjective
Date of Service: August 16, 2023
still with some fullness with pureed diet
Objective
Data Reviewed
Laboratory Data:
Laboratory Results
08/15/23 03:26
08/16/23 06:17
Laboratory Results
PT 14.2 Sec (11.4-14.6) 08/15/23 03:26
INR 1.11 08/15/23 03:26
APTT 95.8 Sec (23.4-35.0) H 08/16/23 06:17
Total Bilirubin 0.3 mg/dl (0.2-1.3) 08/16/23 06:17
AST 17 U/L (17-59) 06/19/24 06:17
ALT 10 U/L (0-50) 08/16/23 06:17
Alkaline Phosphatase 71 U/L (38-126) 08/16/23 06:17
Vital Signs and I&O:
Vital Signs
Temp Pulse Resp BP Pulse Ox
97.9 F 69 18 121/77 98
08/16/23 07:32 08/16/23 07:32 08/16/23 07:32 08/16/23 07:32 08/16/23 07:32
I&O
08/15/23 08/16/23 08/17/23
06:59 06:59 06:59
Intake Total 1300 / 1300 720 / 720
Output Total 2150 / 2150 1700 / 1700
Balance -850 / -850 -980 / -980
Physical Exam
Physical Exam
HEENT: Anicteric and Moist mucous membranes
Pulmonary: Clear
GI: Soft and Non Distended
Neuro: Non Focal
--- NOTE | 2023-08-16 11:34 | W.DS.TRANS ---
DC Summary - Lead Shipper
-
Discharge Instructions:
Discharge Diagnosis/Procedures anemia
esophageal tumor lower third of esophagus, GJ
junction
Diet Other diet
Additional Diets pureed diet with liquid supplement such as
ensure twice a day-- call if unable to tolerate
or vomiting
Activity No strenuous activity
Blood Work cbc in 5-7 days
Instructions:
Stand-Alone Forms:
Changes to Home Medications: No
Discharge Medications:
DC Medications w/original date entered in [employer]
aspirin 81 mg tablet,delayed release 81 mg PO QPM Blood Clot Prevention/Tx 08/13/23
atorvastatin 40 mg tablet 40 mg PO QPM High Cholesterol 08/13/23
pantoprazole 40 mg tablet,delayed release 40 mg PO DAILY Gastrointestinal Issue 08/13/23
rivaroxaban 20 mg tablet (Xarelto) 20 mg PO DAILY Blood Clot Prevention/Tx 08/13/23
Home Medication Changes
na
Pending Results: No
--- NOTE | 2023-08-16 11:42 | CM ---
Home with daughter, no needs.
Plan; Home with daughter no needs.
[2023-08-16 12:24] LABS: Hematocrit 30.2 % (39.0-52.0); Hemoglobin 9.6 g/dL (13.0-18.0); Mean Corp Hgb Conc. 31.8 g/dL (33.0-37.0); Mean Corpuscular Hgb 23.5 pg (27.0-31.0); Mean Platelet Volume 9.4 fL (7.4-10.4); Platelet Count 213 10^3/uL (130-400); Red Blood Cell Count 4.08 10^6/uL (4.70-6.10); Red Cell Dist. Width 15.9 % (11.5-14.5); White Blood Cell Count 5.9 10^3/uL (4.8-10.8)
== END 2023-08-16 13:31 | disposition home or self-care (01) | DRG 375 ==
LOC: 4 WEST ACU 13:39
PROVIDERS: Internal Medicine Gastroenterology; Nurse Practitioner; ADMITTING PHYSICIAN Internal Medicine; ATTENDING PHYSICIAN Internal Medicine; CONSULT PHYSICIAN Internal Medicine Gastroenterology; EMERGENCY PHYSICIAN Emergency Medicine; FAMILY PHYSICIAN Internal Medicine; OTHER PHYSICIAN Internal Medicine Hematology & Oncology
PROC: 30233N1 Transfusion of Nonautologous Red Blood Cells into Peripheral Vein, Percutaneous Approach (ICD-10-PCS; 2023-08-13)
PROC: 0DB78ZX Excision of Stomach, Pylorus, Via Natural or Artificial Opening Endoscopic, Diagnostic (ICD-10-PCS; 2023-08-15)
PROC: 0DBL8ZX Excision of Transverse Colon, Via Natural or Artificial Opening Endoscopic, Diagnostic (ICD-10-PCS; 2023-08-15)
PROC: 0DB38ZX Excision of Lower Esophagus, Via Natural or Artificial Opening Endoscopic, Diagnostic (ICD-10-PCS; 2023-08-15)
PROC: 0DBK8ZX Excision of Ascending Colon, Via Natural or Artificial Opening Endoscopic, Diagnostic (ICD-10-PCS; 2023-08-15)
PROC: 0DB48ZX Excision of Esophagogastric Junction, Via Natural or Artificial Opening Endoscopic, Diagnostic (ICD-10-PCS; 2023-08-15)
DX: C15.5 Malignant neoplasm of lower third of esophagus (principal); C78.5 Secondary malignant neoplasm of large intestine and rectum; D68.9 Coagulation defect, unspecified; C78.89 Secondary malignant neoplasm of other digestive organs; D50.0 Iron deficiency anemia secondary to blood loss (chronic); I10 Essential (primary) hypertension; I73.9 Peripheral vascular disease, unspecified; K86.81 Exocrine pancreatic insufficiency; E78.00 Pure hypercholesterolemia, unspecified; K64.0 First degree hemorrhoids; R68.81 Early satiety; R13.19 Other dysphagia; Z79.01 Long term (current) use of anticoagulants; Z79.82 Long term (current) use of aspirin; Z79.899 Other long term (current) drug therapy; Z87.891 Personal history of nicotine dependence; Z86.718 Personal history of other venous thrombosis and embolism
CPT/HCPCS: 88305; 36430; 71260; 74177; 80048; 80053; 82378; 82728; 83540; 83550; 85014; 85018; 85025; 85027; 85610; 85730; 86803; 86850; 86900; 86901; 86920; 88341; 88342; 88360; 93005; 96374; 99285; J2916; P9016; Q9967

== ENCOUNTER → 2023-08-24 12:27 | Outpatient (REF) | payer OTHER, SELFPAY | LOC: PET 12:27 | PROVIDERS: ATTENDING PHYSICIAN Internal Medicine Hematology & Oncology | DX: C15.5 Malignant neoplasm of lower third of esophagus (principal) | CPT/HCPCS: 78815; A9552 ==

== ENCOUNTER → 2023-09-01 08:35 | Outpatient (REF) | payer OTHER, SELFPAY ==
[2023-09-01 08:51] VITALS: BP 160/96; BP_SYST 87
[2023-09-01] MEDS: ANCEF 10 IV (08:55)
[2023-09-01 10:40] VITALS: BP 157/84; BP_SYST 83
[2023-09-01 11:00] VITALS: BP 143/87; BP_SYST 78
== END ==
LOC: RADI 08:35
PROVIDERS: ATTENDING PHYSICIAN Internal Medicine Hematology & Oncology; FAMILY PHYSICIAN Internal Medicine
DX: C15.5 Malignant neoplasm of lower third of esophagus (principal)
CPT/HCPCS: 36561; 76937; 77001; 99152; 99153; C1788

== ENCOUNTER → 2023-12-28 11:53 | Outpatient (REF) | payer OTHER, SELFPAY | LOC: PET 11:53 | PROVIDERS: ATTENDING PHYSICIAN Internal Medicine Hematology & Oncology | DX: C15.5 Malignant neoplasm of lower third of esophagus (principal) | CPT/HCPCS: 78815; A9552 ==

== ENCOUNTER → 2024-02-20 13:12 | Outpatient (REF) | payer OTHER, SELFPAY | LOC: RAD 13:12 | PROVIDERS: ATTENDING PHYSICIAN Internal Medicine Hematology & Oncology; FAMILY PHYSICIAN Internal Medicine | DX: C15.5 Malignant neoplasm of lower third of esophagus (principal) | CPT/HCPCS: 71260; 74177; Q9967 ==

== ENCOUNTER 2024-05-21 06:12 | Day surgery (SDC) | payer OTHER, SELFPAY ==
[2024-05-21 07:23] VITALS: BMI 22.5
[2024-05-21 07:25] VITALS: BP 110/78
--- NOTE | 2024-05-21 08:04 | PTCARENOTE ---
Tried using scouring machine operator device 2 separate times and the school crossing guard was fuzzy and could not hear what scouring machine operator was saying. No other scouring machine operator device was available. Manager Commercial Geoff made aware and the daughter translated. Geoff aware that the
daughter translated. Will monitor patient.
[2024-05-21 08:38] VITALS: BP 100/78
[2024-05-21 08:45] VITALS: BP 100/77
[2024-05-21 09:00] VITALS: BP 112/75
== END 2024-05-21 09:15 | disposition home or self-care (01) ==
LOC: SDS 06:12
PROVIDERS: ATTENDING PHYSICIAN Internal Medicine Gastroenterology
DX: R12 Heartburn (principal); K22.10 Ulcer of esophagus without bleeding; C16.0 Malignant neoplasm of cardia; C16.4 Malignant neoplasm of pylorus; C16.3 Malignant neoplasm of pyloric antrum; C16.5 Malignant neoplasm of lesser curvature of stomach, unspecified; K31.1 Adult hypertrophic pyloric stenosis; C15.9 Malignant neoplasm of esophagus, unspecified; C78.89 Secondary malignant neoplasm of other digestive organs
CPT/HCPCS: 43239; 88305

== ENCOUNTER → 2024-05-31 12:56 | Outpatient (REF) | payer OTHER, SELFPAY | LOC: PET 12:56 | PROVIDERS: ATTENDING PHYSICIAN Internal Medicine Hematology & Oncology | DX: C15.5 Malignant neoplasm of lower third of esophagus (principal) | CPT/HCPCS: 78815; A9552 ==

== ENCOUNTER 2024-06-13 09:21 | Emergency (ER) | payer OTHER, SELFPAY ==
[2024-06-13] VITALS (8 sets, daily range): BP systolic 104–118; BP diastolic 71–80; BMI 21.8
[2024-06-13 11:31] LABS: % Basophils 0.3 % (0-2); % Eosinophils 3.1 % (0-6); % Immature Granulocytes 0.7 % (0-0.5); % Lymphocytes 6.9 % (20.5-51.1); % Monocytes 9.7 % (1.7-9.3); % Neutrophils 79.3 % (42.2-75.2); Absolute Eosinophils 0.1 10^3/uL (0-0.7); Absolute Lymphocytes 0.2 10^3/uL (1.2-3.4); Absolute Monocytes 0.3 10^3/uL (0.1-0.6); Absolute Neutrophils 2.3 10^3/uL (1.4-6.5); Hematocrit 31.1 % (39.0-52.0); Hemoglobin 10.5 g/dL (13.0-18.0); Mean Corp Hgb Conc. 33.8 g/dL (33.0-37.0); Mean Corpuscular Hgb 27.9 pg (27.0-31.0); Mean Corpuscular Volume 82.7 fL (80.0-94.0); Nucleated Red Blood Cells % 0 % (-); Red Blood Cell Count 3.76 10^6/uL (4.70-6.10); Red Cell Dist. Width 18.2 % (11.5-14.5); White Blood Cell Count 2.9 10^3/uL (4.8-10.8)
[2024-06-13 11:41] LABS: Mean Platelet Volume 9.5 fL (7.4-10.4)
[2024-06-13 11:42] LABS: Platelet Count 89 10^3/uL (130-400)
[2024-06-13 11:43] LABS: ALT (SGPT) 12 U/L (0-50); AST (SGOT) 21 U/L (17-59); Albumin 2.8 g/dl (3.5-5.0); Alkaline Phosphatase 129 U/L (38-126); Blood Urea Nitrogen 20 mg/dl (9-20); Calcium 8.3 mg/dl (8.4-10.2); Carbon Dioxide 26 mmol/L (22-30); Chloride 101 mmol/L (98-107); Estimated Creatinine Clearance 64 ml/min; Glucose 88 mg/dl (70-99); Potassium 4.3 mmol/L (3.5-5.1); Sodium 134 mmol/L (135-145); Total Bilirubin 0.9 mg/dl (0.2-1.3); Total Protein 5.2 g/dl (6.3-8.2); eGFR > 60.00
--- NOTE | 2024-06-13 12:30 | ED.GENMED ---
History of Present Illness
<DO Monique Stanford Last Filed: 06/13/24 13:46>
General
Chief Complaint: Abdominal Symptoms
Source: patient and family
Time Seen by Provider: 06/13/24 10:32
History of Present Illness
History of Present Illness:
This is 64-year-old male who presents after being sent by radiation oncology due to difficulty tolerating eating. The patient's daughter states that as the day goes on he seems to be full and nauseous with discomfort but usually overnight seem to
dissipate and he wakes up feel little better. Patient has a history of esophageal cancer that was treated with chemotherapy with good results but unfortunately recurred and now has a stomach mass. I did review his endoscopy from May 21. Shows a
gastric mass. Today was for radiation and sent by radiation oncology for GI evaluation. On my evaluation patient states he feels actually okay. Only a little bit of nausea the very minimal discomfort. Daughter states that usually as the day goes
on it is little worse. He has been trying to eat eggs and soup. No fevers. No hematemesis. No melena
Past History
<DO Monique Stanford Last Filed: 06/13/24 13:46>
Past History
ED Past Medical History: HTN, Hypercholesterolemia and Other (Esophageal/gastric cancer, gastric tumor, DVT)
ED Past Surgical History: Other (vascular sx)
Social History
Tobacco: Former smoker
Alcohol: Occasional
Drug: None
Living: with family
Employment: Retired
Phy Exam
<Vinod Person DO - Last Filed: 06/13/24 13:46>
Physical Exam
Physical Exam:
CONSTITUTIONAL Patient alert and oriented to person, place and time. Well-appearing. Vital signs reviewed.
HEAD atraumatic, normocephalic.
EYES eyelids normal to inspection, Extraocular muscles intact, Conjunctiva normal, Sclera normal.
NECK normal range of motion, Trachea midline, no jugular venous distention.
RESPIRATORY CHEST No respiratory distress noted, Chest expansion equal, Bilateral breath sounds clear.
CARDIOVASCULAR regular rate and rhythm, Heart sounds normal.
ABDOMEN abdomen nontender, Bowel sounds normal. No distention.
BACK normal inspection, no obvious deformities
UPPER EXTREMITY range of motion normal, Motor strength normal, no cyanosis, no edema.
LOWER EXTREMITY range of motion normal, Motor strength normal, no cyanosis, no edema.
NEURO Speech normal, No focal motor deficits, Jacobo coma scale 15, Memory normal, Cranial Nerves intact to screening exam.
SKIN skin warm, dry, and normal in color.
Course
<Vinod Person, - Last Filed: 06/13/24 13:46>
Orders/Labs/Results
Orders:
Orders
06/13/24 11:08
Complete Blood Count/With Diff Urgent
Comprehensive Metabolic Panel Urgent
Abnormal Lab Results
06/13/24
11:08
WBC 2.9 L 10^3/uL
(4.8-10.8)
RBC 3.76 L 10^6/uL
(4.70-6.10)
Hgb 10.5 L g/dL
(13.0-18.0)
Hct 31.1 L %
(39.0-52.0)
RDW 18.2 H %
(11.5-14.5)
Plt Count 89 L 10^3/uL
(130-400)
Absolute Lymphs (auto) 0.2 L 10^3/uL
(1.2-3.4)
Immature Gran % 0.7 H %
(0-0.5)
Neutrophils % 79.3 H %
(42.2-75.2)
Lymphocytes % 6.9 L %
(20.5-51.1)
Monocytes % 9.7 H %
(1.7-9.3)
Sodium 134 L mmol/L
(135-145)
Calcium 8.3 L mg/dl
(8.4-10.2)
Alkaline Phosphatase 129 H U/L
(38-126)
Total Protein 5.2 L g/dl
(6.3-8.2)
Albumin 2.8 L g/dl
(3.5-5.0)
06/13/24 11:08
06/13/24 11:08
Vital Signs
Initial and Last Documented VS:
Initial Vital Signs
Temp Pulse Resp BP Pulse Ox
98.2 F 85 20 116/79 99
06/13/24 09:22 06/13/24 09:22 06/13/24 09:22 06/13/24 09:22 06/13/24 09:22
Last Documented Vital Signs
Temp Pulse Resp BP Pulse Ox
98.2 F 85 20 109/79 100
06/13/24 09:22 06/13/24 09:22 06/13/24 09:22 06/13/24 15:00 06/13/24 15:00
<Marychuy Moore, DO - Last Filed: 06/13/24 17:01>
Orders/Labs/Results
Orders:
Orders
06/13/24 11:08
Complete Blood Count/With Diff Urgent
Comprehensive Metabolic Panel Urgent
Abnormal Lab Results
06/13/24
11:08
WBC 2.9 L 10^3/uL
(4.8-10.8)
RBC 3.76 L 10^6/uL
(4.70-6.10)
Hgb 10.5 L g/dL
(13.0-18.0)
Hct 31.1 L %
(39.0-52.0)
RDW 18.2 H %
(11.5-14.5)
Plt Count 89 L 10^3/uL
(130-400)
Absolute Lymphs (auto) 0.2 L 10^3/uL
(1.2-3.4)
Immature Gran % 0.7 H %
(0-0.5)
Neutrophils % 79.3 H %
(42.2-75.2)
Lymphocytes % 6.9 L %
(20.5-51.1)
Monocytes % 9.7 H %
(1.7-9.3)
Sodium 134 L mmol/L
(135-145)
Calcium 8.3 L mg/dl
(8.4-10.2)
Alkaline Phosphatase 129 H U/L
(38-126)
Total Protein 5.2 L g/dl
(6.3-8.2)
Albumin 2.8 L g/dl
(3.5-5.0)
06/13/24 11:08
06/13/24 11:08
Vital Signs
Initial and Last Documented VS:
Initial Vital Signs
Temp Pulse Resp BP Pulse Ox
98.2 F 85 20 116/79 99
06/13/24 09:22 06/13/24 09:22 06/13/24 09:22 06/13/24 09:22 06/13/24 09:22
Last Documented Vital Signs
Temp Pulse Resp BP Pulse Ox
98.2 F 85 20 109/79 100
06/13/24 09:22 06/13/24 09:22 06/13/24 09:22 06/13/24 15:00 06/13/24 15:00
<DO Monique Stanford Last Filed: 06/13/24 13:46>
MDM/Problems Addressed
Differential Diagnosis Includes:
Gastric outlet obstruction, gastric tumor
MDM/Problems Addressed:
Gastric tumor
<Vinod Person DO - Last Filed: 06/13/24 13:46>
*Pulse Oximetry
Patient hypoxic: no
*Critical Care Note
Total Time (30-74mins, 75-104mins- exclusive of procedures): Not Applicable
Data Reviewed
Source: patient and family
Further Testing Considered But Not Given:
Consider CT but patient not actively vomiting. No active abdominal distention
<Vinod Person DO - Last Filed: 06/13/24 13:46>
Patient Management
Discussion with other providers: Accounting Manager (Patient well-known to gastroenterology. Case discussed with gastroenterology who will evaluate consultation to make further suggestions on current plan)
Escalation/DeEscalation of care consider admission/obs:
Currently appears well and abdomen benign. No distention or vomiting. Dispo per gastroenterology recommendations
<Vinod Person DO - Last Filed: 06/13/24 13:46>
Update Note
Update Note:
Case again discussed with gastroenterology. Awaiting their consult. Signed out to Dr. Ham pending consultation by GI
<Marychuy Moore DO - Last Filed: 06/13/24 17:01>
Update Note
Update Note:
Case again discussed with gastroenterology. Awaiting their consult. Signed out to Dr. Moore pending consultation by GI
Attending Sign Out Note
14:00 -assuming care of patient, 64-year-old male with history of esophageal cancer, now with metastasis to the stomach. Patient arrives at recommendation of radiation oncology, with symptoms of early satiety, difficulty tolerating p.o. Patient
arrives with daughter who notes that after patient eats in the morning, is very full, however usually feels better into the evening. Patient was sent for evaluation by GI. Patient without any significant present complaints, pending GI assessment.
16:00 -GI to bedside. Recommends that he practice a soft diet, can go home, however ultimately may need some gastric stenting, recommending Dr. Morgan. Will provide information for Dr. Morgan. Patient and daughter are on board with this plan. Strict
return precautions communicated and patient verbalized understanding
16:50 -daughter alerted me that patient's radiation oncologist, Dr. Dobson does not agree with patient going home. Did then directly discuss case with Dr. Dobson. He expresses concerns that patient's stomach is getting more distended by the
day and he is ultimately concerned that it could lead to a perforation. He is recommending transfer to [facility], ER to ER. He notes that he already called the ER. Explained that I can facilitate with transfer. In discussion with daughter, she does
not want to proceed with transfer, would prefer to take him to the hospital herself. Feel this is reasonable given his clinical stability however again, transfer was offered to her. Daughter declined.
ED Attending Note
<Vinod Person, - Last Filed: 06/13/24 13:46>
-
Portions of this chart may have been created with voice recognition software.� Occasional wrong word or��sound alike� substitutions may have occurred due to the inherent limitations of voice recognition software.
Discharge Plan
Departure
Patient Disposition: Home (Routine Discharge)
Date of Disposition: 06/13/24
Time of Disposition: 16:23
Patient with high blood pressure during this ER visit?: No
Condition: Good
Discharge Problem:
Delayed gastric emptying
Instructions: Clear Liquid Diet, [place] Diet
Prescriptions:
No Action
atorvastatin 40 mg Tablet
40 mg PO QPM
aspirin 81 mg Tablet,Delayed Release (Dr/Ec)
81 mg PO QPM
Xarelto 20 mg Tablet
20 mg PO DAILY
Referrals:
Satish Reed MD [Family Provider] -
Akbar Morgan MD [Active] -
Activity Restrictions/Additional Instructions:
You were seen in the emergency department for difficulty tolerating her foods
You were seen by the GI doctor and recommended a soft diet. Please follow-up with the gastrointestinal doctor, Dr. Morgan. Call for an appointment.
Please follow-up closely with your primary care physician.
Return to the emergency department for any worsening of your symptoms, or any development of chest pain, difficulty breathing, abdominal pain with persistent vomiting and inability to tolerate food or liquid by mouth (concern for dehydration),
weakness, headache or confusion, fever greater than 100.4, or any additional symptoms that are concerning to you.
Thank you for choosing [facility].
Interventions
Interventions:
*Risk Screen - Suicide Last Done: 06/13/24 09:22
*General Assessment Last Done: 06/13/24 09:22
*Neglect/Abuse Screening Last Done: 06/13/24 09:22
*ED- Fall Risk Assessment Last Done: 06/13/24 10:27
*ED COVID-19 Vaccine History Last Done: 06/13/24 10:27
YC-Jufhes-Lcovalywii Assessment Last Done: 06/13/24 10:28
Discharge Date and Time
Print Language: Ukranian
--- NOTE | 2024-06-13 16:52 | CON.GI ---
Consultation
-
Date/Time Consultation Requested: 06/13/2024
Date/Time Consultation Performed: 06/13/2024
Requesting Provider: ED
Performing Provider: Ashwini PARKER
Reason for Consultation: abdominal discomfort
Medical History
Chief Complaint / HPI
Chief Complaint: abdominal discomfort
History of Present Illness:
64-year-old male with history of esophageal/gastric cancer currently undergoing radiation therapy is referred to ED for further evaluation of abdominal discomfort. Patient speaks [place]. Patient's daughter facilitates today's encounter.
Patient was diagnosed with esophageal/stomach cancer 07/2023-he underwent chemotherapy with Dr. Fontaine. He then developed earlier this year abdominal distention/nausea symptoms and was sent to Dr. Morgan for further evaluation.
EGD records 05/21/[address] Morgan reviewed
Impression: - No gross lesions in the middle third of the
esophagus and in the lower third of the esophagus.
- Esophageal ulcers.
- Malignant gastric tumor at the pylorus, in the
prepyloric region of the stomach, at the
gastroesophageal junction, in the cardia, on the
lesser curvature of the stomach and in the gastric
antrum. Biopsied.
- Gastric stenosis was found at the pylorus.
- Normal duodenal bulb, first portion of the duodenum
and second portion of the duodenum.
Path poorly differentiated adenocarcinoma
Patient is currently getting radiation therapy with radiation oncology. Got his second dose this morning. Last night he was feeling some abdominal distention. Mild nausea but denies any vomiting.
When I inquired about his current diet although Dr. Morgan recommended full liquid diet patient daughter states he eats mainly soup but sometimes he eats bread or egg with it
Currently denies any abdominal pain/distention/nausea/vomiting.
Past Medical History
Past Medical History: Other (HTN, Hypercholesterolemia and Other (Esophageal/gastric cancer, gastric tumor, DVT))
Social History
Tobacco: Former Smoker
Alcohol: Occasional
Allergies / Home Medications
Allergy/AdvReac Type Severity Reaction Status Date / Time
No Known Allergies Allergy Verified 06/13/24 09:26
�Medication �Instructions �Recorded
aspirin 81 mg tablet,delayed 81 mg PO QPM Blood Clot 08/13/23
release Prevention/Tx
atorvastatin 40 mg tablet 40 mg PO QPM High Cholesterol 08/13/23
rivaroxaban 20 mg tablet (Xarelto) 20 mg PO DAILY Blood Clot 08/13/23
Prevention/Tx
Review of Systems
Vital Signs
Temp Pulse Resp BP Pulse Ox
98.2 F 85 20 109/79 100
06/13/24 09:22 06/13/24 09:22 06/13/24 09:22 06/13/24 15:00 06/13/24 15:00
Physical Exam
Exam
General: No Apparent Distress
Respiratory: Clear
Cardiac: S1/S2
GI: Soft, Non Tender, Non Distended and Normal Bowel Sounds
Neuro: AO x 3
Results
WBC 2.9 10^3/uL (4.8-10.8) L 06/13/24 11:08
Hgb 10.5 g/dL (13.0-18.0) L 06/13/24 11:08
Hct 31.1 % (39.0-52.0) L 06/13/24 11:08
MCV 82.7 fL (80.0-94.0) 06/13/24 11:08
Plt Count 89 10^3/uL (130-400) L 06/13/24 11:08
Absolute Neuts (auto) 2.3 10^3/uL (1.4-6.5) 06/13/24 11:08
Sodium 134 mmol/L (135-145) L 06/13/24 11:08
Potassium 4.3 mmol/L (3.5-5.1) 06/13/24 11:08
Chloride 101 mmol/L (98-107) 06/13/24 11:08
Carbon Dioxide 26 mmol/L (22-30) 06/13/24 11:08
BUN 20 mg/dl (9-20) 06/13/24 11:08
Creatinine 1.0 mg/dL (0.7-1.3) 06/13/24 11:08
Calcium 8.3 mg/dl (8.4-10.2) L 06/13/24 11:08
Total Bilirubin 0.9 mg/dl (0.2-1.3) 06/13/24 11:08
AST 21 U/L (17-59) 06/13/24 11:08
ALT 12 U/L (0-50) 06/13/24 11:08
Alkaline Phosphatase 129 U/L (38-126) H 06/13/24 11:08
Diagnostic Image Results:
Procedure: PET/CT SKULL-THIGH (FDG) 05/31/2024
IMPRESSION:
There is increased hypermetabolic activity along the distal esophagus and lesser curvature the stomach which demonstrates a max SUV of 27.4, previously 8.7. Additionally there is numerous new gastrohepatic and retroperitoneal hypermetabolic lymph
nodes.
There are extensive new or metabolic osseous metastasis involving the anterior right sixth rib, sternum, thoracic and lumbar spine, sacrum, left iliac bone and right acetabulum.
Prior GI Procedures:
EGD: 05/21/24
Impression: - No gross lesions in the middle third of the
esophagus and in the lower third of the esophagus.
- Esophageal ulcers.
- Malignant gastric tumor at the pylorus, in the
prepyloric region of the stomach, at the
gastroesophageal junction, in the cardia, on the
lesser curvature of the stomach and in the gastric
antrum. Biopsied.
- Gastric stenosis was found at the pylorus.
- Normal duodenal bulb, first portion of the duodenum
and second portion of the duodenum.
Poorly differentiated adenocarcinoma
EGD 08/15/2023
Impression: - Completely obstructing, malignant esophageal tumor
was found in the lower third of the esophagus and in
the cardia. Biopsied.
- Malignant gastric tumor at the gastroesophageal
junction, in the cardia and in the gastric antrum.
Biopsied.
- Normal examined duodenum.
Colonoscopy: 07/2023
Impression: - The examined portion of the ileum was normal.
- One 1 mm polyp at the hepatic flexure, removed with
a jumbo cold forceps. Resected and retrieved.
- Three 5 to 7 mm polyps in the transverse colon and
in the ascending colon, removed with a cold snare.
Resected and retrieved.
- Internal hemorrhoids.
Ascending colon polyp path fragment of adenocarcinoma.
Hepatic flexure polyp/transverse polyp tubular adenoma
Assessment / Plan
-
64-year-old male with history of metastatic esophageal/gastric cancer is referred for further evaluation of abdominal discomfort/nausea by radiation oncology. Patient currently denies any GI symptoms. Abdominal examination is benign. Last EGD
with Dr. Morgan 04/2024-suggestive of mild to moderate pyloric stenosis. Although advised by Dr. Morgan to follow full liquid diet patient's daughter claims he eats bread/eggs with soup as well.
I had a long discussion with patient/patient's daughter about possibility of gastric outlet obstruction with recent EGD showing pyloric stenosis. Patient is currently undergoing radiation therapy. Patient is tolerating liquid without any nausea or
vomiting at home. Discussed that Dr. Morgan is away this week. If further evaluation required patient needs to be transferred to tertiary facility. Since patient has been feeling fine without alarming symptoms they would like to go home today.
Advised to be on strict full liquid diet. Small meals.
If unable to tolerate full liquid diet (with abdominal distention/vomiting) will instruct to go back to ED.
Advised to follow-up with Dr. Morgan next week about repeat EGD plus palliative stent placement for pyloric stenosis. Patient's daughter will call office next week and will speak with Dr. Morgan.
Follow-up with oncology/radiation oncology
Plan discussed with ED team as well
Total Time Spent with Patient (in minutes): 55
-
-
Thank you for consultation and allowing me to participate in the patient's care. Please call the telecommunications support GI physician during the after hours with any questions or concerns.
== END 2024-06-13 17:16 | disposition home or self-care (01) ==
LOC: EMR 09:21
PROVIDERS: Emergency Medicine; EMERGENCY PHYSICIAN Student in an Organized Health Care Education/Training Program; FAMILY PHYSICIAN Internal Medicine; OTHER PHYSICIAN Internal Medicine Gastroenterology
DX: K30 Functional dyspepsia (principal); R11.0 Nausea; R14.0 Abdominal distension (gaseous); C15.9 Malignant neoplasm of esophagus, unspecified; C78.89 Secondary malignant neoplasm of other digestive organs; C79.51 Secondary malignant neoplasm of bone; I10 Essential (primary) hypertension; E78.00 Pure hypercholesterolemia, unspecified; Z92.21 Personal history of antineoplastic chemotherapy; Z92.3 Personal history of irradiation; Z86.718 Personal history of other venous thrombosis and embolism; Z87.891 Personal history of nicotine dependence
CPT/HCPCS: 99283; 80053; 85025

== ENCOUNTER 2024-06-26 20:17 | Inpatient (IN) | payer OTHER, SELFPAY ==
[2024-06-26] VITALS (8 sets, daily range): BP systolic 95–133; BP diastolic 64–86; BMI 19.6
--- NOTE | 2024-06-26 17:46 | ED.GENMED ---
History of Present Illness
General
Chief Complaint: Rectal Bleeding
Source: patient
Exam Limitations: none
Time Seen by Provider: 06/26/24 17:33
Nursing documentation reviewed up to this point in time: agreed with
History of Present Illness
History of Present Illness:
Patient is a 64-year-old male with past medical history of esophageal gastric cancer (currently undergoing radiation and recent abdominal /pyloric
stent 1 week ago at [facility]) DVT on Xarelto presents to the ER for evaluation. Patient has had black stools for the past 6 to 7 days. Daughter who is giving history also reports pt is very weak and not himself. he c/o of nausea and has been
altering between Compazine and Zofran without relief. He has had a decreased appetite not been eating or drinking well.
Pt denies any abdominal pain, fever /chills.
Patient was sent by [facility] Radiation oncology.
Past History
Past History
ED Past Medical History: HTN, Hypercholesterolemia and Other (Esophageal/gastric cancer, gastric tumor, DVT)
ED Past Surgical History: Other (vascular sx)
Social History
Tobacco: Former smoker
Alcohol: Occasional
Drug: None
Living: with family
Employment: Retired
Review of Systems
Review of Systems
Allergies reviewed?: Yes
All Other Systems: ROS reviewed and negative except as documented in HPI and ROS
Constitutional: Reports fatigue
EENT: Reports no symptoms
Respiratory: Reports no symptoms
Cardiac: Reports no symptoms
ABD/GI: Reports black stools
: Reports no symptoms
Musculoskeletal: Reports no symptoms
Skin: Reports no symptoms
Neurological: Reports no symptoms
Psychiatric: Reports no symptoms
Phy Exam
General Physical Exam
General Presentation: no apparent distress
General age: appears stated age
General Skin: warm and dry
General Habitus: normal
General Mental: alert
General Hydration: dry mucous membranes
Cardiovascular Exam
Cardiovascular Exam: regular rate/rhythm, no murmur and normal peripheral pulses
Pulmonary Exam
Pulmonary Exam: lungs clear and no respiratory distress
Gastrointestinal Exam
Gastrointestinal Exam: non tender, soft and other (dark stool heme positive on active bleeding )
Neurological Exam
Neurological Exam: alert and oriented x3
Musculoskeletal Exam
Musculoskeletal Exam: full ROM
Skin Exam
Skin Exam: normal color and warm/dry
Psychiatric Exam
Psychiatric Exam: normal mood/affect
Course
Orders/Labs/Results
Orders:
Orders
06/26/24 17:44
Cardiac Monitoring- Treatment ONCE
06/26/24 17:45
Electrocardiogram (*1) Stat
Reason for Study: Other
Other Reason for Exam: GI Bleed
EKG- Treatment ONCE
IV Insert/Care/Rem.- Treatment PRN
06/26/24 18:13
0.9% Sodium Chloride 1000 ml [Nss] 1,000 ml IV BOLUS
06/26/24 18:14
Ondansetron Injectable [Zofran] 4 mg IV NOW STA
06/26/24 18:15
Type+Screen Urgent
Complete Blood Count/With Diff Urgent
Comprehensive Metabolic Panel Urgent
Abnormal Lab Results
06/26/24
18:15
WBC 4.7 L 10^3/uL
(4.8-10.8)
RBC 2.60 L 10^6/uL
(4.70-6.10)
Hgb 7.6 L g/dL
(13.0-18.0)
Hct 22.3 L %
(39.0-52.0)
RDW 19.4 H %
(11.5-14.5)
Plt Count 51 L 10^3/uL
(130-400)
Abs Immat Gran (auto) 0.2 H 10^3/uL
(0-0.05)
Absolute Lymphs (auto) 0.3 L 10^3/uL
(1.2-3.4)
Immature Gran % 4.4 H %
(0-0.5)
Neutrophils % 81.2 H %
(42.2-75.2)
Lymphocytes % 5.3 L %
(20.5-51.1)
Sodium 134 L mmol/L
(135-145)
BUN 24 H mg/dl
(9-20)
Calcium 8.1 L mg/dl
(8.4-10.2)
Alkaline Phosphatase 242 H U/L
(38-126)
Total Protein 5.4 L g/dl
(6.3-8.2)
Albumin 3.0 L g/dl
(3.5-5.0)
06/26/24 18:15
06/26/24 18:15
Vital Signs
Initial and Last Documented VS:
Initial Vital Signs
Temp Pulse Resp BP Pulse Ox
98.2 F 125 20 95/72 95
06/26/24 17:06 06/26/24 17:06 06/26/24 17:06 06/26/24 17:06 06/26/24 17:06
Last Documented Vital Signs
Temp Pulse Resp BP Pulse Ox
98.2 F 102 16 125/86 100
06/26/24 17:06 06/26/24 17:55 06/26/24 17:55 06/26/24 17:55 06/26/24 17:58
Stem Lead Former consulted with Physician
Stem Lead Former consulted with physician?: Yes
Name of Physician Consulted: Oscar
MDM/Problems Addressed
MDM/Problems Addressed:
As documented patient is a 64-year-old male with history of esophageal gastric cancer status post pyloric stent atop 7 days ago presents with dark tarry stools for the past 7 days. He has had increasing weakness along with nausea decreased
appetite. Patient with no active bleeding here but rectal exam does show dark stools which are heme positive. Hemoglobin has dropped to 7.6 from 10.5 June 13. Pt was given fluids/zofran and here feeling less nauseous. Will adm pt will need HGB
trending /possible transfusion. consent obtained however will hold off transfusion at this time.
Chronic conditions affecting care:
History of esophageal and gastric cancer
*Pulse Oximetry
Patient hypoxic: no
*EKG
Interpreted by ED Provider?: Yes
Heart Rate: 100
Rate: normal
Rhythm: sinus
Ischemia: non-specific ST changes
*Critical Care Note
Total Time (30-74mins, 75-104mins- exclusive of procedures): Not Applicable
Data Reviewed
Review of Other/Old Records Reveals: Labs and Discharge Summary
ED Attending Note
-
Portions of this chart may have been created with voice recognition software.� Occasional wrong word or��sound alike� substitutions may have occurred due to the inherent limitations of voice recognition software.
Discharge Plan
Departure
Patient Disposition: Admit
Date of Disposition: 06/26/24
Time of Disposition: 19:21
Admit to: Telemetry
Admit to doctor: hospitalist
Presentation/result/management discussed w/ accepting MD/DO: Hospitalist
Patient with high blood pressure during this ER visit?: No
Condition: Fair
Covid-19: Not Applicable
Discharge Problem:
Symptomatic anemia, GI bleed, Acute dehydration
Prescriptions:
No Action
atorvastatin 40 mg Tablet
40 mg PO QPM
aspirin 81 mg Tablet,Delayed Release (Dr/Ec)
81 mg PO QPM
Xarelto 20 mg Tablet
20 mg PO DAILY
Referrals:
Satish Reed MD [Family Provider] -
Interventions
Interventions:
*General Assessment Last Done: 06/26/24 17:06
*ED- Fall Risk Assessment Last Done: 06/26/24 17:58
*ED COVID-19 Vaccine History Last Done: 06/26/24 17:58
QY-Ansgbh-Sqrrmcfhgo Assessment Last Done: 06/26/24 17:58
ED- Cardiac Assessment Last Done: 06/26/24 17:58
ED- Pulmonary Assessment Last Done: 06/26/24 17:58
Discharge Date and Time
Print Language: Ukranian
[2024-06-26 18:46] LABS: % Basophils 0.4 % (0-2); % Eosinophils 1.9 % (0-6); % Immature Granulocytes 4.4 % (0-0.5); % Lymphocytes 5.3 % (20.5-51.1); % Monocytes 6.8 % (1.7-9.3); % Neutrophils 81.2 % (42.2-75.2); ALT (SGPT) 11 U/L (0-50); AST (SGOT) 27 U/L (17-59); Absolute Eosinophils 0.1 10^3/uL (0-0.7); Absolute Immature Granulocytes 0.2 10^3/uL (0-0.05); Absolute Lymphocytes 0.3 10^3/uL (1.2-3.4); Absolute Monocytes 0.3 10^3/uL (0.1-0.6); Absolute Neutrophils 3.8 10^3/uL (1.4-6.5); Alkaline Phosphatase 242 U/L (38-126); Blood Urea Nitrogen 24 mg/dl (9-20); Calcium 8.1 mg/dl (8.4-10.2); Carbon Dioxide 24 mmol/L (22-30); Chloride 101 mmol/L (98-107); Glucose 93 mg/dl (70-99); Hematocrit 22.3 % (39.0-52.0); Hemoglobin 7.6 g/dL (13.0-18.0); Mean Corp Hgb Conc. 34.1 g/dL (33.0-37.0); Mean Corpuscular Hgb 29.2 pg (27.0-31.0); Mean Corpuscular Volume 85.8 fL (80.0-94.0); Nucleated Red Blood Cells % 0.4 % (-); Potassium 4.5 mmol/L (3.5-5.1); Red Cell Dist. Width 19.4 % (11.5-14.5); Sodium 134 mmol/L (135-145); Total Bilirubin 0.7 mg/dl (0.2-1.3); Total Protein 5.4 g/dl (6.3-8.2); White Blood Cell Count 4.7 10^3/uL (4.8-10.8); eGFR > 60.00
[2024-06-26] MEDS: ZOFRAN 4 MG IV (18:48)
[2024-06-26] MEDS: NSS 1000 IV (18:50)
[2024-06-26 18:58] LABS: Mean Platelet Volume 9.5 fL (7.4-10.4); Platelet Count 51 10^3/uL (130-400)
--- NOTE | 2024-06-26 19:49 | HPS.HSE ---
Family Physician
-
Family Physician: Satish Reed
Chief Complaint
-
Melena
History of Present Illness
Is a 64-year-old medical history significant for peripheral arterial disease status post femoral bypass surgery and stenting in [facility] on Xarelto and aspirin, history of esophageal/gastric cancer currently on radiation treatment will
recently had a stent placed for pyloric stenosis at [facility] 1 week ago presents to the emergency department with melena and weakness.
According to the patient's daughter who intubated (patient is drinking and speaking only), after the procedure 1 week ago patient started having liquid melanotic stools. He also developed weakness and ongoing nausea. Denies any vomiting. Reports
minimal p.o. intake. His last radiation therapy was this morning prior to coming to the ED. After reporting his symptoms to his physician was referred to the emergency department.
Patient has continued to take the Xarelto and aspirin. He is not on any other medications.
In the emergency department he was afebrile, blood pressure was 125/80 with a pulse of 1 2. He had a reported saturation of 4 on room air.
Hemoglobin is 7.6 which is down from 10.5 from 417. Platelet count is 51. Electrolytes BUN/creatinine were normal. ECG shows a normal sinus rhythm.
Medical History
Past Medical History
Past Medical History: Reports Other
Additional Past Medical History:
Essential HTN
Hypercholesterolemia
vasculopathy
microcytic anemia
Past Surgical History: Reports Other
Additional Past Surgical History:
clot removal surgery
LE vascular bypass surgery
Social History
Tobacco: Non-smoker
Alcohol: Occasional
Drug: None
Living: With Family
Employment: Not Employed
Family History
Family History: Not pertinent
Allergies / Home Medications
Allergies reflects when Allergies were last updated in [facility] [employer].
Home Medications with original date entered in [facility]
Allergy/Medication List:
Allergies
Allergy/AdvReac Type Severity Reaction Status Date / Time
No Known Allergies Allergy Unverified 08/13/23 09:30
Home Medications
aspirin 81 mg tablet,delayed release 81 mg PO QPM 08/13/23
atorvastatin 40 mg tablet 40 mg PO QPM 08/13/23
pantoprazole 40 mg tablet,delayed release 40 mg PO DAILY 08/13/23
rivaroxaban 20 mg tablet (Xarelto) 20 mg PO DAILY 08/13/23
Review of Systems
-
History Source: Patient and Family
Constitutional: Reports No Symptoms
EENT: Reports No Symptoms
Respiratory: Reports No Symptoms
Cardiac: Reports No Symptoms
Abdomen/GI: Reports Nausea and Black Stools
: Reports No Symptoms
Musculoskeletal: Reports No Symptoms
Skin: Reports No Symptoms
Neurological: Reports No Symptoms
Endocrine: Reports No Symptoms
Hematologic/Lymphatic: Reports No Symptoms
Psych: Reports No Symptoms
Physical Exam
Vital Signs
Vital Signs
Temp Pulse Resp BP Pulse Ox
98.2 F 102 16 125/86 100
06/26/24 17:06 06/26/24 17:55 06/26/24 17:55 06/26/24 17:55 06/26/24 17:58
Physical Exam
General: Well Developed, Comfortable and Poor Appetite
HEENT: NormoCephalic, Anicteric, Moist mucous membranes and Atraumatic
Respiratory: Clear
Cardiac: S1/S2 and Regular Rhythm
Breast: Deferred by me
GI: Soft, Non Tender, Non Distended and Normal Bowel Sounds
Rectal: Black and Hem Positive
Genito-urinary: Deferred by me
Musculoskeletal: No Clubbing, No Cyanosis and No Edema
Skin: Warm
Neuro: Awake, AO x 3 and Nonfocal/grossly intact
Hematologic/Lymphatic: No Lymphadenopathy
Psych: Calm
Laboratory Results
-
06/26/24 18:15
04/30/25 18:15
Laboratory Results
Total Bilirubin 0.7 mg/dl (0.2-1.3) 06/26/24 18:15
AST 27 U/L (17-59) 06/26/24 18:15
ALT 11 U/L (0-50) 06/26/24 18:15
Alkaline Phosphatase 242 U/L (38-126) H 06/26/24 18:15
Data Reviewed
-
Lab Data: Labs Reviewed by me
Old Records: Reviewed
Impression/Plan
-
IMPRESSION:
64-year-old male with past medical history of peripheral arterial disease status post bypass on aspirin and Xarelto, recent history of gastroesophageal cancer status post biopsy showing undifferentiated adenocarcinoma, was currently on radiation
therapy and is recently status post stenting for pyloric stenosis 1 week ago at [facility] presents to the emergency department with apparently 7 days of melanotic stools weakness and found to be anemic with a hemoglobin of 7.6 down from 10.5 measured 2
weeks ago. Urine positive dark stool in the emergency department. He remains hemodynamically stable at this time. He does have antibodies but blood bank. Patient last transfusion was about a year ago.
Patient with a combination of anticoagulation, antiplatelet, low platelet count, gross lesions in the esophagus with esophageal ulcer, a malignant gastric tumor at the pylorus, prepyloric region of the stomach, GE junction and gastric antrum,
presenting with melena.
PLAN:
1. GI bleed - Multifactorial, associated with gastric mass, antiplatelet, anticoagulation and low platetet count. On XRT to stomach and recent pyloric stenting.
- admit to telemetry
- type and screened
- IV fluid resuscitation
- transfuse for H&H < 7 (has antibodies)
- PPI IV gtt for now
- will hold Xarelto/asa (h/o re-stenosis of opened left lower extremity vessel after prolonged halt to ac in the past)
- clear liquids for now
DVT PPX - SCDs
Code status - Full Code
[2024-06-26] MEDS: NSS (PRESERVATIVE FREE) 20 ML IV (20:15)
[2024-06-26] MEDS: PROTONIX IV 80 MG IV (20:17)
[2024-06-26] MEDS: D5/0.9% SODIUM CHLORIDE 1000 IV (22:08)
[2024-06-26] MEDS: PROTONIX 100 IV (22:12)
[2024-06-26 22:59] LABS: Hematocrit 18.5 % (39.0-52.0); Hemoglobin 6.3 g/dL (13.0-18.0); Mean Corp Hgb Conc. 34.1 g/dL (33.0-37.0); Mean Corpuscular Hgb 28.9 pg (27.0-31.0); Mean Corpuscular Volume 84.9 fL (80.0-94.0); Mean Platelet Volume 8.9 fL (7.4-10.4); Platelet Count 53 10^3/uL (130-400); Red Blood Cell Count 2.18 10^6/uL (4.70-6.10); Red Cell Dist. Width 19.7 % (11.5-14.5); White Blood Cell Count 3.9 10^3/uL (4.8-10.8)
--- NOTE | 2024-06-26 23:03 | PTCARENOTE ---
Patient's hgb- 6.3/ HCT- 18.5. Updated jennifer SANTANA.
[2024-06-27] VITALS (14 sets, daily range): BP systolic 114–135; BP diastolic 68–84; PULSE 90–98; BMI 19.6
--- NOTE | 2024-06-27 01:59 | W.PN.UPDATE ---
Update Note
Progress Note Update
hgb 6.3/18.5, type and screen done, Consent in chart, no active bleeding at present. Will order 1 unit of PRBCs. stable VS.
[2024-06-27] MEDS: PROTONIX 100 IV ×2 (05:34→16:32)
[2024-06-27 06:36] LABS: Hematocrit 21.3 % (39.0-52.0); Hemoglobin 7.4 g/dL (13.0-18.0); Mean Corp Hgb Conc. 34.7 g/dL (33.0-37.0); Mean Corpuscular Hgb 29.4 pg (27.0-31.0); Mean Corpuscular Volume 84.5 fL (80.0-94.0); Mean Platelet Volume 9.7 fL (7.4-10.4); Platelet Count 47 10^3/uL (130-400); Red Blood Cell Count 2.52 10^6/uL (4.70-6.10); White Blood Cell Count 4.7 10^3/uL (4.8-10.8)
[2024-06-27 06:45] LABS: Blood Urea Nitrogen 18 mg/dl (9-20); Calcium 7.7 mg/dl (8.4-10.2); Carbon Dioxide 24 mmol/L (22-30); Chloride 106 mmol/L (98-107); Estimated Creatinine Clearance 66 ml/min; Glucose 91 mg/dl (70-99); Iron 76 ug/dl (49-181); Potassium 3.7 mmol/L (3.5-5.1); Sodium 135 mmol/L (135-145); eGFR > 60.00
[2024-06-27 06:54] LABS: Percent Saturation 46 % (20-50); Total Iron Binding Capacity 163 ug/dl (261-462)
--- NOTE | 2024-06-27 06:57 | CON.GI ---
Addendum entered and electronically signed by Bonny Kwong MD 06/27/24 10:41:
I saw and examined the patient.
The CLINIC RECEPTIONIST or PA's note was reviewed and I agree with the note.
Comment:
Pt is a Ukranian speaking man with a hx of esophageal/gastric cancer in 08/20 with chemo and radiation. Last month had egd by Dr. Morgan with multiple ulcers and GOO and new lymph nodes. he is s/p stent at [facility] for GOO. He is on xarelto last dose
yesterday. he was admitted with melena and hgb drop. platelets also low. No bleeding since last night
abd: soft, nontender.
impression:
esophageal gastric cancer
melena
anemia
plan:
PPI ggt
platelets
hold xarelto
transfuse and follow hemoglobin
likely EGD tomorrow
Original Note:
Consultation
-
Date/Time Consultation Requested: 06/26/24 2140
Date/Time Consultation Performed: 06/27/24 0700
Requesting Provider: Curtis English MD
Performing Provider: MAX Varma, Bonny Kwong MD
Reason for Consultation: melena
Medical History
Chief Complaint / HPI
Chief Complaint: weakness, black stools
History of Present Illness:
Pt is a 64yo Argentine speaking male with hx of YAHAIRA, prior femoral bypass and esophageal/gastric cancer in 07/2023. At that time he had EGD with noted large ulcerated mass with bleeding in lower third of esophagus and gastric cardia. Mass with
completely obstructing and partially circumferential involving 2/3 of lumen. At that time he also completed colonoscopy with 3 small polyps. Path from EGD with invasive adeno CA and polyps of ascending colon with fragments of adeno CA with concern
for mets. CT at that time with concern for upper lobe PNA vs mets with gastric wall thickening and adenopathy and follow up PET scan with gastrohepatic, retroperitoneal, b/l hilar and supraclavicular mets. He has been followed by oncology and
completed chemo with good response. He completed EGD 05/[address] Morgan with complaints of worsening GERD, decreased appetite and early satiety with esophageal ulcers and concern for malignant gastric tumor at pylorus, prepyloric region, GE
junction, cardia, and lesser curvature of stomach. He was also noted with gastric stenosis at pylorus.with last PET on on 05/31/24 with increased hypermetabolic activity in distal esophagus and lesser curvature of stomach and numerous new
gastrohepatic and retroperitoneal nodes. Also noted new osseous mets in rib, sternum, thoracic/lumbar spine, sacrum, left iliac bone and right acetabulum and was started on radiation. He presented to 06/13 with abdominal pain and vomiting with
concern for gastric outlet obstruction. He was advised full liquid diet with follow up with Dr. Morgan to consider stenting. However Dr. Dobson preferred pt eval and he was sent to [facility] and family preferred to transfer pt. He completed EGD at
[facility] 1 week ago with stent placement and now presents with weakness over last week and melena with drop in hbg to 6.3 and platelets 47,000. He did restart radiation yesterday and took Xarelto til 06/26 Am.
In review with family who assist with interpretation pt with decline over last week. He has has some indigestion and nausea unresponsive to medication with dry heave but no vomiting. He is also noted with decreased appetite. He initial had
wt loss then gained weight in February but overall now down about 5 kg since last year. Pt admits to 3/10 abdominal pain and continued dark stools with small black stool overnight. Pt otherwise denies dysphagia, or constipation.
Past Medical History
Past Medical History: Other (HTN, Hypercholesterolemia and Other (Esophageal/gastric cancer, gastric tumor, DVT))
Past Surgical History: Other (femoral bypass surgery and stenting at [facility] )
Social History
Tobacco: Former Smoker
Alcohol: Occasional
Drug: None
Personal:
Living: With Family
Employment: Not Employed
Family History
Family History: Other (? sister with colon CA -- recent without cancer work up )
Allergies / Home Medications
Allergy/AdvReac Type Severity Reaction Status Date / Time
No Known Allergies Allergy Verified 06/26/24 17:06
�Medication �Instructions �Recorded
aspirin 81 mg tablet,delayed 81 mg PO QPM Blood Clot 08/13/23
release Prevention/Tx
atorvastatin 40 mg tablet 40 mg PO QPM High Cholesterol 08/13/23
rivaroxaban 20 mg tablet (Xarelto) 20 mg PO DAILY Blood Clot 08/13/23
Prevention/Tx
Review of Systems
-
Unable to obtain full review of systems at this time due to: Language Barrier (speaks bermudian )
History Source: Patient and Family
Constitutional: Reports Weight Loss and Fatigue
EENT: Reports No Symptoms
Respiratory: Reports No Symptoms
Cardiac: Reports No Symptoms
Abdomen/GI: Reports Abdominal Pain, Nausea, Diarrhea and Black Stools
: Reports No Symptoms
Musculoskeletal: Reports No Symptoms
Neurological: Reports Weakness
Endocrine: Reports No Symptoms
Hematologic/Lymphatic: Reports Bleeding
Vital Signs
Temp Pulse Resp BP Pulse Ox
98.9 F 83 18 128/76 99
06/27/24 03:00 06/27/24 03:00 06/27/24 03:00 06/27/24 03:00 06/27/24 03:00
Physical Exam
Exam
General: Other (pale appearing )
HEENT: Normocephalic
Respiratory: Clear
Cardiac: Regular Rhythm
GI: Soft, Non Distended and Tender (mild abdominal tenderness )
Rectal: Other (dark heme + stool per ER)
Musculoskeletal: No Clubbing and No Cyanosis
Skin: Warm and Dry
Neuro: Awake, Alert and AO x 3
Psych: Calm
Results
WBC 4.7 10^3/uL (4.8-10.8) L 06/27/24 05:32
Hgb 7.4 g/dL (13.0-18.0) L 06/27/24 05:32
Hct 21.3 % (39.0-52.0) L 06/27/24 05:32
MCV 84.5 fL (80.0-94.0) 06/27/24 05:32
Plt Count 47 10^3/uL (130-400) L 06/27/24 05:32
Absolute Neuts (auto) 3.8 10^3/uL (1.4-6.5) 06/26/24 18:15
Sodium 135 mmol/L (135-145) 06/27/24 05:32
Potassium 3.7 mmol/L (3.5-5.1) 06/27/24 05:32
Chloride 106 mmol/L (98-107) 06/27/24 05:32
Carbon Dioxide 24 mmol/L (22-30) 06/27/24 05:32
BUN 18 mg/dl (9-20) 06/27/24 05:32
Creatinine 0.9 mg/dL (0.7-1.3) 06/27/24 05:32
Calcium 7.7 mg/dl (8.4-10.2) L 06/27/24 05:32
Total Bilirubin 0.7 mg/dl (0.2-1.3) 06/26/24 18:15
AST 27 U/L (17-59) 06/26/24 18:15
ALT 11 U/L (0-50) 06/26/24 18:15
Alkaline Phosphatase 242 U/L (38-126) H 06/26/24 18:15
Diagnostic Image Results:
05/31/24 PT Pet Wbi W/CT Skull-thigh
There is increased hypermetabolic activity along the distal esophagus and lesser curvature the stomach which demonstrates a max SUV of 27.4, previously 8.7. Additionally there is numerous new gastrohepatic and retroperitoneal hypermetabolic lymph
nodes.
There are extensive new or metabolic osseous metastasis involving the anterior right sixth rib, sternum, thoracic and lumbar spine, sacrum, left iliac bone and right acetabulum.
EGD: 05/21/24
Impression: - No gross lesions in the middle third of the
esophagus and in the lower third of the esophagus.
- Esophageal ulcers.
- Malignant gastric tumor at the pylorus, in the
prepyloric region of the stomach, at the
gastroesophageal junction, in the cardia, on the
lesser curvature of the stomach and in the gastric
antrum. Biopsied.
- Gastric stenosis was found at the pylorus.
- Normal duodenal bulb, first portion of the duodenum
and second portion of the duodenum.
Poorly differentiated adenocarcinoma
EGD 08/15/2023
Impression: - Completely obstructing, malignant esophageal tumor
was found in the lower third of the esophagus and in
the cardia. Biopsied.
- Malignant gastric tumor at the gastroesophageal
junction, in the cardia and in the gastric antrum.
Biopsied.
- Normal examined duodenum.
Colonoscopy: 07/2023
Impression: - The examined portion of the ileum was normal.
- One 1 mm polyp at the hepatic flexure, removed with
a jumbo cold forceps. Resected and retrieved.
- Three 5 to 7 mm polyps in the transverse colon and
in the ascending colon, removed with a cold snare.
Resected and retrieved.
- Internal hemorrhoids.
Ascending colon polyp path fragment of adenocarcinoma.
Hepatic flexure polyp/transverse polyp tubular adenoma
Assessment / Plan
-
Pt is a 64yo Argentine speaking male with hx of YAHAIRA, prior femoral bypass and esophageal/gastric cancer with mets and noted + Adeno CA in colon polyp/adenopathy in 07/2023. He completed chemo and was doing well but follow up PET with progression of
disease and pt has been undergoing radiation therapy. He presented 06/13 to ER with abdominal pain and vomiting with concern for gastric outlet obstruction. He was advised full liquid diet with follow up with Dr. Morgan to consider stenting.
However Dr. Dobson preferred pt eval and he was sent to [facility] and family preferred to transfer pt. He completed EGD at [facility] 1 week ago with stent placement and now presents with weakness and melena. On admission hbg drop to 6.3. Restart radiation
06/26.
-metastatic esophageal/gastric adeno CA
-melena
-symptomatic anemia
-nausea/ abdominal pain
-thrombocytopenia
-increased alk phos -- recently noted oseous mets
other medical problems:
-PVD
-hx femoral bypass
PLAN:
Etiology of melena related to oozing from gastric tumor with recent stent placement vs other-- in setting of thrombocytopenia and recent radiation
no vomiting but persistent nausea less likely stent occlusion
ok for sips clears then NPO in AM
cont PPI gtt
trend hbg transfuse as needed hbg up to 7.4 with 1 unit
1 stool overnight
reviewed with Dr. Simpson will give platelets today with bleeding -- may need additional in AM
Xarelto hold last dose 06/26 AM
will have staff obtain recent EGD with stent placement report and d/c summary
will review with Dr. Morgan for EGD --possible tomorrow after Xarelto wash out -- sooner if signs of aggressive bleeding
I updated daughter on Plan
-
-
Thank you for consultation and allowing me to participate in the patient's care. Please call the construction quality control manager GI physician during the after hours with any questions or concerns.
--- NOTE | 2024-06-27 07:15 | W.PN.HOSP.TC ---
Today's Communication/Plan
-
diet as per GI
Oncology/Hematology eval requested
Platelet transfusion
Assessment / Plan
Assessment / Plan
Physical Exam
General: no acute distress, appears comfortable at this time
HEENT: NormoCephalic, Anicteric, Moist mucous membranes and Atraumatic
Respiratory: Clear
Cardiac: S1/S2 and Regular Rhythm
GI: Soft, Non Tender, Non Distended and Normal Bowel Sounds
Musculoskeletal: No Clubbing, No Cyanosis and No Edema
Skin: Warm
Neuro: AOx3 conversant coherent
Psych: Calm
64M PAD status post bypass on aspirin and Xarelto, recent history of gastroesophageal cancer status post biopsy showed undifferentiated adenocarcinoma, currently on radiation therapy and recently status post stenting for pyloric stenosis 1 week ago
at [facility], presented w 7 days melanotic stools weakness and found to be anemic with a hemoglobin of 7.6 down from 10.5 measured 2 weeks ago.
PLAN:
GI bleed - Multifactorial, associated with gastric mass, anticoagulation and low platelet count. On XRT for gastroesophageal ca and recent pyloric stenting.
Anemia
Thrombocytopenia
- Tele admit
- type and screened
- IV fluid resuscitation
- transfuse for H&H < 7 (received 1PRBC so far)
-Platelet transfusion
- PPI IV gtt for now
- hold Xarelto
- ASA resumed/cont
- Diet as per GI
-GI eval appreciated planned for EGD tomorrow 06/28
-Oncology/Hematology eval requested
DVT PPX - SCDs
Code status - Full Code
discussed with patient and patient's daughter Carmita
I spent a total of 50 minutes with the patient or on the floor. More than 50% of this time involved counseling and coordination of care.
Anticipated Discharge: 24 - 48 hours
Subjective/Interval History
-
Date of Service: June 27, 2024
No acute distress. Resting comfortably in bed. Reports some nausea denies pain. Daughter Carmita provided Yakut translation over speaker phone.
Objective Data
-
Labs:
Laboratory Results
06/26/24 06/27/24 06/27/24
22:47 05:32 14:00
WBC 3.9 L 4.7 L
Hgb 6.3 L* 7.4 L Pending
Hct 18.5 L* 21.3 L Pending
Plt Count 53 L 47 L
Sodium 135
Potassium 3.7
Chloride 106
Carbon Dioxide 24
BUN 18
Creatinine 0.9
Glucose 91
Calcium 7.7 L
Vital Signs:
Vital Signs
Temp Pulse Resp BP Pulse Ox
98.9 F 83 18 128/76 99
06/27/24 03:00 06/27/24 03:00 06/27/24 03:00 06/27/24 03:00 06/27/24 03:00
I&O
06/26/24 06/27/24 06/28/24
06:59 06:59 06:59
Intake Total 850 / 850
Balance 850 / 850
[2024-06-27] MEDS: D5/0.9% SODIUM CHLORIDE 1000 IV ×2 (11:41→23:13)
--- NOTE | 2024-06-27 11:57 | CON.ONC ---
Consultation
-
Date Consultation Requested: 06/27/24
Date Consultation Performed: 06/27/24
Requesting Provider: Pancho Simpson
Performing Provider: Dr. Serna
Reason for Consultation: Dr. Serna
Impression
Impression
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
gastric outlet obstruction
melena
anemia, ferritin 180, IS 46
acute thrombocytopenia
PAD
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
Plan
Plan
DOAC on hold
check US LE -if VTE present, may need to consider filter if anticoagulation is contraindicated due to bleeding
GI evaluation underway
check DIC panel, B12, folate, no recent systemic chemotherapy to explain thrombocytopenia
transfuse Hgb <7 or as needed for sxs anemia
pain management and symptom support
Patient History
History of Present Illness
[facility] qc manager utilized for entire visit, qc manager ID [id number]
64yo M known to Dr. Fontaine for management of IV metastatic esophageal cancer admitted with melena and weakness. His weakness has been progressive over the past week. He completed EGD at [facility] 1 week ago with stent placement. He restarted XRT 06/26/2024.
CBC showed WBC 3.9, Hgb 6.3, platelet count 53,000. He has been admitted, DOAC placed on hold, transfused with 1U PRBC, and undergoing a bleeding and stent evaluation with GI.
In brief, he was treated with FOLFOX+pembrolizumab that showed remission on restaging in January 2024 and transitioned to maintenance pembrolizumab through March 2024. Unfortunately, he developed nausea, vomiting, dysphagia, and abdominal
distention for which he underwent EGD with biopsy showed gastric outlet obstruction secondary to recurrent disease distal to initial diagnosis. His recent PET confirmed recurrent and metastatic disease to his distal esophagus, lesser curvature of
the stomach, gastrohepatic LN, RP LN, and extensive osseous metastasis. He was evaluated by radiation oncology and in collaboration with medical oncology planned for XRT alone followed by Taxol/Cyramza and bone ppx with xgeva.
Afebrile, no hypoxia or hypotension
Past-Medical/Surgical History
PMH HLD,, PAD, anemia, HTN, VTE, GERD
Past Surgical History: LE vascular bypass surgery, thrombectomy
Social former smoker, quit 2021. 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
Family sister with unknown malignancy
Patient Medication
�Medication �Instructions �Recorded �Confirmed �Last Taken �Type
aspirin 81 mg tablet,delayed 81 mg PO QPM Blood Clot 08/13/23 05/21/24 05/19/24 08:00 History
release Prevention/Tx
atorvastatin 40 mg tablet 40 mg PO QPM High Cholesterol 08/13/23 05/21/24 05/19/24 08:00 History
rivaroxaban 20 mg tablet (Xarelto) 20 mg PO DAILY Blood Clot 08/13/23 05/21/24 05/19/24 08:00 History
Prevention/Tx
Active Medications
Generic Name Dose Route Start Last Admin
Trade Name Freq PRN Reason Stop Dose Admin
Acetaminophen 650 mg 06/26/24 21:44
Acetaminophen 325 Mg Tablet PO 07/24/24 21:43
Q6HPRN PRN
mild pain/ fever>100.5F
Pantoprazole Sodium 80 mg in 100 mls @ 10 mls/hr 06/26/24 21:44 06/27/24 05:34
Protonix IV 100 mls
Q10H LARRY Administration
8 MG/HR
Dextrose/Sodium Chloride 1,000 mls @ 100 mls/hr 06/26/24 21:44 06/26/24 22:08
D5/0.9% Sodium Chloride IV 1,000 mls
.Q10H LARRY Administration
Ondansetron HCl 4 mg 06/26/24 21:44
Ondansetron 4 Mg/2 Ml Vial IV 07/24/24 21:43
Q6HPRN PRN
NAUSEA/VOMITING
Sodium Chloride 0 flush 06/26/24 22:00
Sodium Chloride 0.9% (Flush) Syringe IV 07/24/24 21:59
PER PROTOCOL LARRY
Review of Systems
-
ROS is notable for HPI, otherwise unremarkable
Physical Exam
-
General: No Apparent Distress and Conversant
HEENT: Moist Mucous Membranes; Negative Jaundice
Cardiology: Normal Sinus Rhythm
Pulmonary: Clear
GI: Soft
Extremities: Pulses Present; Negative Edema
Neurology: Non Focal
Skin: Warm
Hematologic / Lymphatic: No Lymphadenopathy
Psych: Calm
Labs
Lab Results
WBC 4.7 10^3/uL (4.8-10.8) L 06/27/24 05:32
RBC 2.52 10^6/uL (4.70-6.10) L 06/27/24 05:32
Hgb 7.4 g/dL (13.0-18.0) L 06/27/24 05:32
Hct 21.3 % (39.0-52.0) L 06/27/24 05:32
MCV 84.5 fL (80.0-94.0) 06/27/24 05:32
MCH 29.4 pg (27.0-31.0) 06/27/24 05:32
MCHC 34.7 g/dL (33.0-37.0) 06/27/24 05:32
RDW 18.0 % (11.5-14.5) H 06/27/24 05:32
Plt Count 47 10^3/uL (130-400) L 06/27/24 05:32
MPV 9.7 fL (7.4-10.4) 06/27/24 05:32
Abs Immat Gran (auto) 0.2 10^3/uL (0-0.05) H 06/26/24 18:15
Absolute Neuts (auto) 3.8 10^3/uL (1.4-6.5) 06/26/24 18:15
Absolute Lymphs (auto) 0.3 10^3/uL (1.2-3.4) L 06/26/24 18:15
Absolute Monos (auto) 0.3 10^3/uL (0.1-0.6) 06/26/24 18:15
Absolute Eos (auto) 0.1 10^3/uL (0-0.7) 06/26/24 18:15
Absolute Basos (auto) 0.0 10^3/uL (0-0.2) 06/26/24 18:15
Immature Gran % 4.4 % (0-0.5) H 06/26/24 18:15
Neutrophils % 81.2 % (42.2-75.2) H 06/26/24 18:15
Lymphocytes % 5.3 % (20.5-51.1) L 06/26/24 18:15
Monocytes % 6.8 % (1.7-9.3) 06/26/24 18:15
Eosinophils % 1.9 % (0-6) 06/26/24 18:15
Basophils % 0.4 % (0-2) 06/26/24 18:15
Creatinine 0.9 mg/dL (0.7-1.3) 06/27/24 05:32
Vital Signs
Vital Signs
Temp Pulse Resp BP Pulse Ox
99.3 F 85 18 123/75 97
06/27/24 10:56 06/27/24 10:56 06/27/24 10:56 06/27/24 10:56 06/27/24 10:56
[2024-06-27 13:43] LABS: Fibrinogen 224 MG/DL (199-459); INR 1.32; PT 16.9 Sec (11.4-14.6)
[2024-06-27 13:44] LABS: APTT 33.4 Sec (23.4-35.0)
[2024-06-27 13:46] LABS: D-Dimer 3.81 ug/mlFEU (0.00-0.50)
[2024-06-27 14:28] LABS: Hematocrit 21.1 % (39.0-52.0); Hemoglobin 7.4 g/dL (13.0-18.0)
--- NOTE | 2024-06-27 15:27 | CM ---
self storage manager reviewed patient's chart and met with patient to complete IA. Satish lives with his daughter in a 2 story home. He reports being independent with adl's and ambulation, no dme, patient has a prescription plan and [facility].
Pt under care with oncology for stage IV GE adenocarcinoma.
PCP: Dr. Satish Reed
Pharm: [facility] on [address] in [place]
Plan: Home with daughter when stable.
[2024-06-27 21:31] LABS: Hematocrit 20.3 % (39.0-52.0)
--- NOTE | 2024-06-27 23:00 | PTCARENOTE ---
This Nurse found a capsule on patient's bed. when asked patient stated ' took one for pain' but doesn't know the name. called patient's daughter and confirmed that was 'Tylenol'. MAX Tanner made aware. Reviewed hospital policy with patient and
family of not to take any home meds without physicians order while hospitalized.
[2024-06-27] MEDS: ZOFRAN 4 MG IV (23:14)
[2024-06-28] VITALS (14 sets, daily range): BP systolic 110–138; BP diastolic 61–80
[2024-06-28] MEDS: PROTONIX 100 IV ×2 (03:01→15:09)
[2024-06-28 05:42] LABS: INR 1.37; PT 17.4 Sec (11.4-14.6)
[2024-06-28 05:45] LABS: Hematocrit 23.1 % (39.0-52.0); Hemoglobin 8.1 g/dL (13.0-18.0); Mean Corp Hgb Conc. 35.1 g/dL (33.0-37.0); Mean Corpuscular Hgb 29.8 pg (27.0-31.0); Mean Corpuscular Volume 84.9 fL (80.0-94.0); Mean Platelet Volume 9.9 fL (7.4-10.4); Platelet Count 31 10^3/uL (130-400); Red Blood Cell Count 2.72 10^6/uL (4.70-6.10); Red Cell Dist. Width 17.8 % (11.5-14.5); White Blood Cell Count 5.3 10^3/uL (4.8-10.8)
[2024-06-28 06:11] LABS: ALT (SGPT) < 10 U/L (0-50); AST (SGOT) 21 U/L (17-59); Alkaline Phosphatase 219 U/L (38-126); Blood Urea Nitrogen 10 mg/dl (9-20); Calcium 7.5 mg/dl (8.4-10.2); Carbon Dioxide 22 mmol/L (22-30); Chloride 108 mmol/L (98-107); Estimated Creatinine Clearance 74 ml/min; Glucose 89 mg/dl (70-99); Potassium 3.4 mmol/L (3.5-5.1); Sodium 136 mmol/L (135-145); Total Bilirubin 0.9 mg/dl (0.2-1.3); Total Protein 4.3 g/dl (6.3-8.2); eGFR > 60.00
--- NOTE | 2024-06-28 07:49 | W.PN.HOSP.TC ---
Today's Communication/Plan
-
Npo for EGD
platelet transfusions
B12 IM injection
IVF switched to LR mild hypokalemia
Assessment / Plan
Assessment / Plan
Physical Exam
General: no acute distress, appears comfortable at this time
HEENT: NormoCephalic, Anicteric, Moist mucous membranes and Atraumatic
Respiratory: Clear
Cardiac: S1/S2 and Regular Rhythm, right chest port present
GI: Soft, Non Tender, Non Distended and Normal Bowel Sounds
Musculoskeletal: No Clubbing, No Cyanosis and No Edema
Skin: Warm
Neuro: AOx3 conversant coherent
Psych: Calm
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
stenosis 1 week ago at [facility], presented w 7 days melanotic stools weakness and found to be anemic with a hemoglobin of 7.6 down from 10.5 measured 2 weeks ago.
PLAN:
GI bleed - Multifactorial, associated with gastric mass, anticoagulation and low platelet count. On XRT for gastroesophageal ca and recent pyloric stenting.
Anemia
Thrombocytopenia
- Tele admit
- type and screened
- IV fluid resuscitation
- transfuse for H&H < 7 (received 1PRBC so far)
-Platelet transfusions
- PPI IV gtt for now
- hold Xarelto/ASA
- Diet as per GI
-GI eval appreciated planned for EGD today 06/28
-Oncology/Hematology eval appreciated
Mild Hypokalemia
IVF switched to LR
Hx DVT
Venous duplex neg for DVT
B12 deficiency
-IM B12 weekly injections started
DVT PPX - SCDs
Code status - Full Code
discussed with patient and patient's daughter Carmita
I spent a total of 45 minutes with the patient or on the floor. More than 50% of this time involved counseling and coordination of care.
Anticipated Discharge: 24 - 48 hours
Subjective/Interval History
-
Date of Service: June 28, 2024
no acute distress, npo awaiting EGD. Daughter Carmita providing Moldovan translation over speaker phone as per patient's preference.
Objective Data
-
Labs:
Laboratory Results
06/27/24 06/28/24 06/28/24
21:14 04:50 07:40
WBC 5.3
Hgb 7.0 L 8.1 L
Hct 20.3 L* 23.1 L
Plt Count 31 L D Pending
PT 17.4 H
INR 1.37
Sodium 136
Potassium 3.4 L
Chloride 108 H
Carbon Dioxide 22
BUN 10
Creatinine 0.8
Glucose 89
Calcium 7.5 L
Total Bilirubin 0.9
AST 21
ALT < 10
Alkaline Phosphatase 219 H
Vital Signs:
Vital Signs
Temp Pulse Resp BP Pulse Ox
98.4 F 86 14 124/76 99
06/28/24 03:00 06/28/24 03:00 06/28/24 03:00 06/28/24 03:00 06/28/24 03:00
I&O
06/27/24 06/28/24 06/29/24
06:59 06:59 06:59
Intake Total 850 / 850 2163 / 2163
Balance 850 / 850 2163 / 2163
--- NOTE | 2024-06-28 08:05 | PTCARENOTE ---
platelet count 31,000, still waiting for 2 more units of platelets from [facility] per blood bank. Dr. Simpson made aware, will continue to monitor.
--- NOTE | 2024-06-28 08:15 | W.PN.ONC2 ---
Documented by User: MAX Garvin 06/28/24 12:51
Today's Communication / Plan
-
.
Impression
Impression
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
gastric outlet obstruction
melena
anemia, ferritin 180, IS 46
acute thrombocytopenia, no evidence to acute DIC
PAD
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
Plan
Plan
DOAC on hold for thrombocytopenia and bleeding. LE US negative for DVT so would hold off on IVC filter placement.
GI evaluation underway
on PPI
f/u B12, folate, no recent systemic chemotherapy to explain thrombocytopenia
transfuse platelets <10, prn <50 for procedures of if bleeding
transfuse Hgb <7 or as needed for sxs anemia
pain management and symptom support
Pt declined [employer] landfill technician with preference to use daughter on phone to translate.
Subjective/Objective
Subjective
no new complaints
denies bleeding
continues with epigastric pain
Vital Signs:
Vital Signs
Temp Pulse Resp BP Pulse Ox
98.4 F 86 14 124/76 99
06/28/24 03:00 06/28/24 03:00 06/28/24 03:00 06/28/24 03:00 06/28/24 03:00
Lab Results:
Laboratory Data
WBC 5.3 10^3/uL (4.8-10.8) 06/28/24 04:50
Hgb 8.1 g/dL (13.0-18.0) L 06/28/24 04:50
Plt Count Cancelled 06/28/24 07:40
PT 17.4 Sec (11.4-14.6) H 06/28/24 04:50
INR 1.37 06/28/24 04:50
APTT 33.4 Sec (23.4-35.0) 06/27/24 13:15
eGFR > 60.00 06/28/24 04:50
Physical Exam
HEENT: Moist Mucous Membranes; No Jaundice
Cardiology: Normal Sinus Rhythm
Pulmonary: Clear
GI: Soft
Extremities: Pulses Present; No Edema
Neuro: Non Focal
Orders
Orders
Orders From Last 24 Hours
06/27/24 12:29
US Periph Venous LOWER Ext Dimitry Urgent
06/27/24 13:15
D-Dimer Routine
Fibrinogen Routine
INR [Prothrombin Time] Routine
PTT Routine

Documented by User: Ozzie Fitzgerald MD 06/28/24 12:59
Plan
Plan
DOAC on hold for thrombocytopenia and bleeding. LE US negative for DVT so would hold off on IVC filter placement.
GI evaluation underway
on PPI
f/u B12, folate, no recent systemic chemotherapy to explain thrombocytopenia
transfuse platelets <10, prn <50 for procedures of if bleeding
transfuse Hgb <7 or as needed for sxs anemia
pain management and symptom support
Pt declined [employer] landfill technician with preference to use daughter on phone to translate.
Oncology/Hematology Addendum:
Patient seen and evaluated and agree w/ FIBERGLASS LAMINATOR note and plan as outlined.
-h/o esophageal cancer - s/p stent
-anemia - ongoing GI blood loss
-thrombocytopenia - unclear etiology - PPI can occasionally impact thrombopoiesis
-monitor plt count and transfuse prn
-follow CBC
Will continue to follow with you
[2024-06-28 10:22] LABS: Folate 3.5 ng/ml (2.76-20); Vitamin B12 271 pg/ml (239-931)
[2024-06-28] MEDS: TYLENOL 650 MG PO ×2 (10:24→22:38)
[2024-06-28] MEDS: ZOFRAN 4 MG IV ×2 (10:42→22:40)
[2024-06-28] MEDS: D5/0.9% SODIUM CHLORIDE IV (11:07)
--- NOTE | 2024-06-28 14:28 | W.PN.UPDATE ---
Addendum entered and electronically signed by Myranda Rahman DO 06/28/24 15:24:
I spoke to the daughter over the phone. Discussed the procedure.
She would like to discuss with oncology when able
Original Note:
Update Note
Progress Note Update
i left a voicemail with the daughter without significant details
I did go over the procedure with the patient with the language line
he did receive his 2nd platelets here in GI
--- NOTE | 2024-06-28 14:45 | PTCARENOTE ---
patient returned back from GI s/p endoscopy. arrived back aaox3, c/o mild pain in mid epigastric area, denies nausea, did receive PRN Zofran x1 this am for c/o nausea with good relief and medicated with Tylenol PRN for pain with some relief, no
stools. lungs clear, no sob, apical regular, abdomen soft soft, nabsx4 quads, nontender, nondistended, vss. did receive 1 unit of platelets prior to procedure, will continue to monitor.
[2024-06-28] MEDS: LR 1000 IV ×2 (15:09→22:22)
--- NOTE | 2024-06-28 15:23 | PN.CDI ---
CDI
- -
CDI:
Physician Documentation Request
Admit Date: 06/26/24 20:17
Dear Doctor Calvin,
Clinical Indicators:
Patient admitted with weakness and GI bleeding.
06/27 Oncology consult, 'currently with anemia believed to be secondary to acute bleeding associated with gastric malignancy.
06/27 GI consult, 'symptomatic anemia'
06/27 PN, 'GI bleed - Multifactorial, associated with gastric mass...Anemia'
PRBCs 2 units transfused.
Based on the above, could you clarify, in your progress note, which of the following is the most likely type of anemia you are evaluating, monitoring and/or treating?
Acute blood loss anemia with baseline chronic anemia due to malignancy
Acute blood loss anemia
Other, please specify
Use of terms such as suspected, likely, concern for, or probable (associated with a specific diagnosis that is being evaluated, monitored, or treated as if it exists) are acceptable and can be coded in the inpatient setting, when documented at the
time of discharge.
Thank you,
ZAINA Mccormick RN
CDI Specialist
available via tiger text
Please use your independent medical judgment in providing your response.
[2024-06-28] MEDS: CYANOCOBALAMIN 1000 MCG IM (17:57)
[2024-06-28 18:19] LABS: Hematocrit 23.2 % (39.0-52.0); Mean Corp Hgb Conc. 34.5 g/dL (33.0-37.0); Mean Corpuscular Hgb 29.1 pg (27.0-31.0); Mean Corpuscular Volume 84.4 fL (80.0-94.0); Mean Platelet Volume 9.7 fL (7.4-10.4); Platelet Count 39 10^3/uL (130-400); Red Blood Cell Count 2.75 10^6/uL (4.70-6.10); Red Cell Dist. Width 18.2 % (11.5-14.5); White Blood Cell Count 5.9 10^3/uL (4.8-10.8)
[2024-06-28] MEDS: NSS (PRESERVATIVE FREE) 10 ML IV (22:22)
[2024-06-28] MEDS: PROTONIX IV 40 MG IV (22:23)
[2024-06-29] VITALS (20 sets, daily range): BP systolic 110–144; BP diastolic 54–86; PULSE 85; O2SAT 98
[2024-06-29] MEDS: TYLENOL 650 MG PO (05:57)
--- NOTE | 2024-06-29 07:12 | W.PN.HOSP.TC ---
Today's Communication/Plan
-
see a/p
Assessment / Plan
Assessment / Plan
Physical Exam
General: no acute distress, appears comfortable at this time
HEENT: NormoCephalic, Anicteric, Moist mucous membranes and Atraumatic
Respiratory: Clear
Cardiac: S1/S2 and Regular Rhythm, right chest port present
GI: Soft, Non Tender, Non Distended and Normal Bowel Sounds
Musculoskeletal: No Clubbing, No Cyanosis and No Edema
Skin: Warm
Neuro: AOx3 conversant coherent
Psych: Calm
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
stenosis 1 week ago at [facility], presented w 7 days melanotic stools weakness and found to be anemic with a hemoglobin of 7.6 down from 10.5 measured 2 weeks ago.
PLAN:
GI bleed - Multifactorial, associated with gastric mass, anticoagulation and low platelet count. On XRT for gastroesophageal ca and recent pyloric stenting.
Acute blood loss anemia with baseline chronic anemia due to malignancy
Thrombocytopenia
- Tele admit
- type and screened
- IV fluid resuscitation
- transfuse for H&H < 7 (received 2PRBC so far)
-Platelet transfusions goal >50 as per GI
- PPI IV gtt transitioned to BID
- hold Xarelto/ASA
- Diet as per GI
-GI eval appreciated EGD performed 06/28 noted Malignant gastric tumor with easy contact bleeding from the cardia to the 2nd portion of the duodenum with a patent stent in place.
-Oncology/Hematology eval appreciated potential benefit additional XRT
-cont monitoring H&H and platelet with transfusions as necessary- as above
-Possible XRT plan/follow up to be clarified Monday
- pain control prn tylenol Tramadol
Mild Hypokalemia
hypocalcemia
IVF switched to LR
monitor and replete as necessary
Hx DVT
Venous duplex neg for DVT
B12 deficiency
-IM B12 once
-high dose daily PO b12 supplementation started
DVT PPX - SCDs
Code status - Full Code
discussed with patient and patient's daughter Carmita
I spent a total of 45 minutes with the patient or on the floor. More than 50% of this time involved counseling and coordination of care.
Anticipated Discharge: 24 - 48 hours
Subjective/Interval History
-
Date of Service: June 29, 2024
no acute distress, appears comfortable at this time. Intermittent abd pain nausea persists.
Objective Data
-
Labs:
Laboratory Results
06/29/24
06:00
WBC Pending
Hgb Pending
Hct Pending
Plt Count Pending
Sodium Pending
Potassium Pending
Chloride Pending
Carbon Dioxide Pending
BUN Pending
Creatinine Pending
Glucose Pending
Calcium Pending
Vital Signs:
Vital Signs
Temp Pulse Resp BP Pulse Ox
98.4 F 86 16 123/74 96
06/29/24 05:53 06/29/24 05:53 06/29/24 05:53 06/29/24 05:53 06/29/24 05:53
I&O
06/28/24 06/29/24 06/30/24
06:59 06:59 06:59
Intake Total 2162 / 2162 3621 / 3621
Balance 2162 / 216 3621 / 3621
[2024-06-29] MEDS: NSS (PRESERVATIVE FREE) 10 ML IV ×2 (07:43→20:32)
[2024-06-29] MEDS: PROTONIX IV 40 MG IV ×2 (07:52→20:32)
[2024-06-29 07:57] LABS: Hemoglobin 7.3 g/dL (13.0-18.0); Mean Corp Hgb Conc. 34.8 g/dL (33.0-37.0); Mean Corpuscular Hgb 29.6 pg (27.0-31.0); Mean Platelet Volume 9.9 fL (7.4-10.4); Platelet Count 43 10^3/uL (130-400); Red Blood Cell Count 2.47 10^6/uL (4.70-6.10); Red Cell Dist. Width 18.5 % (11.5-14.5); White Blood Cell Count 5.3 10^3/uL (4.8-10.8)
[2024-06-29 08:20] LABS: Blood Urea Nitrogen 12 mg/dl (9-20); Calcium 6.8 mg/dl (8.4-10.2); Carbon Dioxide 27 mmol/L (22-30); Chloride 106 mmol/L (98-107); Estimated Creatinine Clearance 74 ml/min; Glucose 87 mg/dl (70-99); Magnesium 1.8 mg/dl (1.6-2.3); Potassium 3.4 mmol/L (3.5-5.1); Sodium 136 mmol/L (135-145); eGFR > 60.00
[2024-06-29] MEDS: CALCIUM GLUCONATE 100 IV (09:15)
[2024-06-29] MEDS: KCL ELIXIR 40 MEQ PO (09:16)
--- NOTE | 2024-06-29 11:54 | W.PN.ONC ---
Today's Communication / Plan
-
hemoglobin has drifted down - 7.3g/dl - repeat CBC later today
plts stable
anticoagulation on hold
Impression
Impression
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
gastric outlet obstruction
melena
anemia, ferritin 180, IS 46
acute thrombocytopenia, no evidence to acute DIC
PAD
hx VTE on chronic DOAC -[facility] 06/27 negative for DVT
Plan
Plan
1. Gastroesophageal malignancy - gastic outlet obstruction
-s/p EGD yesterday w/ Dr. Rahman w/ large, frond-like/villous, fungating and ulcerated mass with oozing in the cardia, gastric fundus, gastric body, gastric antrum and in the prepyloric region of the stomach
-pt has initiated XRT w/ Dr. Dobson - needs XRT f/u - potential for additional XRT - outpt Monday?
-hemoglobin holding 7.3g/dl
-PPI
2, Thrombocytopenia - unclear etiology - possible component of consumptive coagulopathy
-plts better today at 46,000
-anticoagulation for VTE on hold
3. H/o chronic VTE - [facility] 06/27 negative for DVT
-DOAC on hold for thrombocytopenia and bleeding
Continue to monitor CBC.
Will continue to follow with you.
Subjective/Objective
Subjective/Objective
Patient feels slightly better. Remains fatigued. No SOB or chest pain at rest.
Vital Signs:
Vital Signs
Temp Pulse Resp BP Pulse Ox
99.1 F 86 18 115/66 96
06/29/24 07:00 06/29/24 07:00 06/29/24 07:00 06/29/24 07:00 06/29/24 07:00
Lab Results:
Laboratory Data
WBC 5.3 10^3/uL (4.8-10.8) 06/29/24 07:26
Hgb 7.3 g/dL (13.0-18.0) L 06/29/24 07:26
Plt Count 43 10^3/uL (130-400) L 06/29/24 07:26
PT 17.4 Sec (11.4-14.6) H 06/28/24 04:50
INR 1.37 06/28/24 04:50
APTT 33.4 Sec (23.4-35.0) 06/27/24 13:15
eGFR > 60.00 06/29/24 07:26
Exam: unchanged
--- NOTE | 2024-06-29 12:05 | W.PN.GI.CBS2 ---
Today's Communication / Plan
-
GI signing off. See assessment and plan for details
Assessment / Plan
-
Pt is a 64yo [place] speaking male with hx of YAHAIRA, prior femoral bypass and esophageal/gastric cancer with mets and noted + Adeno CA in colon polyp/adenopathy in 07/2023. He completed chemo and was doing well but follow up PET with progression of
disease and pt has been undergoing radiation therapy. He presented 06/13 to ER with abdominal pain and vomiting with concern for gastric outlet obstruction. He was advised full liquid diet with follow up with Dr. Morgan to consider stenting.
However Dr. Dobson preferred pt eval and he was sent to [facility] and family preferred to transfer pt. He completed EGD at [facility] 1 week ago with stent placement and now presents with weakness and melena. On admission hbg drop to 6.3. Restart radiation
06/26.
-metastatic esophageal/gastric adeno CA
-melena
-symptomatic anemia
-nausea/ abdominal pain
-thrombocytopenia
-increased alk phos -- recently noted oseous mets
other medical problems:
-PVD
-hx femoral bypass
06/28/2024 gave 2 pills of platelets prior to procedure
EGD with [facility]
Unfortunately nothing to endoscopically treat -
significant contact oozing (as documented below)
- No gross lesions in the entire esophagus.
- Malignant gastric tumor with easy contact bleeding
from the cardia to the 2nd portion of the duodenum
with a patent stent in place. No significant blood
present but easily oozed with contact. This is the
source of his melena and anemia which is exacerbated
by his thrombocytopenia and Xarelto use.
- Pre-existing patent stent in the pylorus with
contact oozing throughout.
- No specimens collected.
06/29/2024: Small melenic stool overnight with slight drop in hemoglobin
Unfortunately not much for GI to offer in terms of therapy for bleeding
Consider transfusion, no more Xarelto. NSAIDs also not ideal
Try and keep platelets above 50K
PPI
Further management with oncology and radiation oncology
GI will sign off. Please call us if there is anything we can do to help
Subjective
Subjective
Date of Service: June 29, 2024
Had a small melenic stool last night. Mild drop in hemoglobin. Platelets still subpar at 2pools
Objective
Data Reviewed
Laboratory Data:
Laboratory Results
06/29/24 07:26
Laboratory Results
PT 17.4 Sec (11.4-14.6) H 06/28/24 04:50
INR 1.37 06/28/24 04:50
APTT 33.4 Sec (23.4-35.0) 06/27/24 13:15
Phosphorus 4.0 mg/dl (2.5-4.5) 06/29/24 07:26
Magnesium 1.8 mg/dl (1.6-2.3) 06/29/24 07:26
Total Bilirubin 0.9 mg/dl (0.2-1.3) 06/28/24 04:50
AST 21 U/L (17-59) 06/28/24 04:50
ALT < 10 U/L (0-50) 06/28/24 04:50
Alkaline Phosphatase 219 U/L (38-126) H 06/28/24 04:50
Vital Signs and I&O:
Vital Signs
Temp Pulse Resp BP Pulse Ox
98.2 F 82 17 132/77 96
06/29/24 11:00 06/29/24 11:00 06/29/24 11:00 06/29/24 11:00 06/29/24 11:00
I&O
06/28/24 06/29/24 06/30/24
06:59 06:59 06:59
Intake Total 2163 / 2163 3621 / 3621
Balance 2163 / 2163 3621 / 3621
Physical Exam
Physical Exam
HEENT: Anicteric
Cardiology: Normal Sinus Rhythm
Extremities: No Edema
Neuro: Non Focal
[2024-06-29] MEDS: ZOFRAN 4 MG IV (15:54)
[2024-06-29] MEDS: ULTRAM 25 MG PO (17:26)
[2024-06-29 22:55] LABS: Hematocrit 22.2 % (39.0-52.0); Hemoglobin 7.7 g/dL (13.0-18.0); Mean Corp Hgb Conc. 34.7 g/dL (33.0-37.0); Mean Corpuscular Hgb 29.6 pg (27.0-31.0); Mean Corpuscular Volume 85.4 fL (80.0-94.0); Mean Platelet Volume 10.2 fL (7.4-10.4); Platelet Count 55 10^3/uL (130-400); Red Cell Dist. Width 18.8 % (11.5-14.5); White Blood Cell Count 5.8 10^3/uL (4.8-10.8)
[2024-06-30] VITALS (8 sets, daily range): BP systolic 122–149; BP diastolic 75–98
[2024-06-30] MEDS: ULTRAM 25 MG PO ×3 (00:01→21:45)
[2024-06-30] MEDS: LR 1000 IV ×2 (03:10→17:25)
[2024-06-30] MEDS: LR IV (03:14)
[2024-06-30 04:59] LABS: Hematocrit 21.1 % (39.0-52.0); Hemoglobin 7.3 g/dL (13.0-18.0); Mean Corp Hgb Conc. 34.6 g/dL (33.0-37.0); Mean Corpuscular Hgb 29.7 pg (27.0-31.0); Mean Corpuscular Volume 85.8 fL (80.0-94.0); Mean Platelet Volume 9.5 fL (7.4-10.4); Platelet Count 47 10^3/uL (130-400); Red Blood Cell Count 2.46 10^6/uL (4.70-6.10); Red Cell Dist. Width 18.8 % (11.5-14.5); White Blood Cell Count 5.2 10^3/uL (4.8-10.8)
[2024-06-30 05:21] LABS: Blood Urea Nitrogen 12 mg/dl (9-20); Calcium 7.4 mg/dl (8.4-10.2); Carbon Dioxide 28 mmol/L (22-30); Chloride 105 mmol/L (98-107); Estimated Creatinine Clearance 74 ml/min; Glucose 82 mg/dl (70-99); Magnesium 1.8 mg/dl (1.6-2.3); Phosphorus 3.3 mg/dl (2.5-4.5); Potassium 3.8 mmol/L (3.5-5.1); Sodium 134 mmol/L (135-145); eGFR > 60.00
--- NOTE | 2024-06-30 07:53 | W.PN.HOSP.TC ---
Today's Communication/Plan
-
diet advanced to low residue
imodium prn
follow up post-transfusion responses PRBC platelet
Possible discharge tomorrow if hgb platelet at goal, patient remains stable, and XRT plans confirmed with Oncology
Assessment / Plan
Assessment / Plan
Physical Exam
General: no acute distress, appears comfortable at this time
HEENT: NormoCephalic, Anicteric, Moist mucous membranes and Atraumatic
Respiratory: Clear
Cardiac: S1/S2 and Regular Rhythm, right chest port present
GI: Soft, Non Tender, Non Distended and Normal Bowel Sounds
Musculoskeletal: No Clubbing, No Cyanosis and No Edema
Skin: Warm
Neuro: AOx3 conversant coherent
Psych: Calm
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
stenosis 1 week ago at [facility], presented w 7 days melanotic stools weakness and found to be anemic with a hemoglobin of 7.6 down from 10.5 measured 2 weeks ago.
PLAN:
GI bleed - Multifactorial, associated with gastric mass, anticoagulation and low platelet count. On XRT for gastroesophageal ca and recent pyloric stenting.
Acute blood loss anemia with baseline chronic anemia due to malignancy
Thrombocytopenia
- Tele admit
- type and screened
- IV fluid resuscitation
- transfuse for H&H < 7
- additional 1PRBC support given as per oncology Monday hgb 7.3
-received 3PRBC so far
-Platelet transfusions goal >50 as per GI
- PPI IV gtt transitioned to BID
- hold Xarelto/ASA
- full liquid diet advanced to low residue
-imodium prn
-GI eval appreciated EGD performed 06/28 noted Malignant gastric tumor with easy contact bleeding from the cardia to the 2nd portion of the duodenum with a patent stent in place.
-Oncology/Hematology eval appreciated potential benefit additional XRT
-cont monitoring H&H and platelet with transfusions as necessary- as above
-Possible XRT plan/follow up to be clarified with Oncology Monday
- pain control prn tylenol Tramadol
Mild Hypokalemia
hypocalcemia
IVF switched to LR
monitor and replete as necessary
Hx DVT
Venous duplex neg for DVT
B12 deficiency
-IM B12 once
-high dose daily PO b12 supplementation started, cont
DVT PPX - SCDs
Code status - Full Code
discussed with patient and patient's daughter Vandana
I spent a total of 45 minutes with the patient or on the floor. More than 50% of this time involved counseling and coordination of care.
Anticipated Discharge: 24 - 48 hours
Subjective/Interval History
-
Date of Service: June 30, 2024
denies dark stools but reports frequent liquid stools. Daughter vandana providing taiwanese translation over speaker phone.
Objective Data
-
Labs:
Laboratory Results
06/29/24 06/30/24
22:33 04:42
WBC 5.8 5.2
Hgb 7.7 L 7.3 L
Hct 22.2 L 21.1 L
Plt Count 55 L D 47 L
Sodium 134 L
Potassium 3.8
Chloride 105
Carbon Dioxide 28
BUN 12
Creatinine 0.8
Glucose 82
Calcium 7.4 L
Vital Signs:
Vital Signs
Temp Pulse Resp BP Pulse Ox
98.6 F 87 16 122/75 96
06/30/24 07:00 06/30/24 07:00 06/30/24 07:00 06/30/24 07:00 06/30/24 07:00
I&O
06/29/24 06/30/24 07/01/24
06:59 06:59 06:59
Intake Total 3621 / 3621 861 / 861
Balance 3621 / 3621 861 / 861
[2024-06-30] MEDS: VITAMIN B-12 1000 MCG PO (08:14)
[2024-06-30] MEDS: PROTONIX IV 40 MG IV ×2 (08:15→20:12)
[2024-06-30] MEDS: NSS (PRESERVATIVE FREE) 10 ML IV ×2 (08:15→20:12)
--- NOTE | 2024-06-30 15:34 | W.PN.ONC ---
Today's Communication / Plan
-
transfuse 1 unit PRBCs
monitor CBC
outpt XRT
Impression
Impression
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
gastric outlet obstruction
melena
anemia, ferritin 180, IS 46
acute thrombocytopenia, no evidence to acute DIC
PAD
hx VTE on chronic DOAC -[facility] 06/27 negative for DVT
Plan
Plan
1. Gastroesophageal malignancy - gastic outlet obstruction
-s/p EGD 06/28 w/ Dr. Rahman w/ large, frond-like/villous, fungating and ulcerated mass with oozing in the cardia, gastric fundus, gastric body, gastric antrum and in the prepyloric region of the stomach
-pt has initiated XRT w/ Dr. Dobson - needs XRT f/u - potential for additional XRT - outpt Monday?
-hemoglobin holding 7.3g/dl - for additional PRBCs x1 today
-PPI
2, Thrombocytopenia - unclear etiology - possible component of consumptive coagulopathy
-plts holding at 47,000
-anticoagulation for VTE on hold
3. H/o chronic VTE - [facility] 06/27 negative for DVT
-DOAC on hold for thrombocytopenia and bleeding
Continue to monitor CBC.
Will continue to follow with you.
Subjective/Objective
Subjective/Objective
Vital Signs:
Vital Signs
Temp Pulse Resp BP Pulse Ox
98.1 F 98 14 133/80 99
06/30/24 14:07 06/30/24 14:07 06/30/24 14:07 06/30/24 14:07 06/30/24 14:07
Exam: unchanged
Lab Results:
Laboratory Data
WBC 5.2 10^3/uL (4.8-10.8) 06/30/24 04:42
Hgb 7.3 g/dL (13.0-18.0) L 06/30/24 04:42
Plt Count 47 10^3/uL (130-400) L 06/30/24 04:42
PT 17.4 Sec (11.4-14.6) H 06/28/24 04:50
INR 1.37 06/28/24 04:50
APTT 33.4 Sec (23.4-35.0) 06/27/24 13:15
eGFR > 60.00 06/30/24 04:42
[2024-07-01] VITALS (7 sets, daily range): BP systolic 122–147; BP diastolic 75–90
[2024-07-01] MEDS: ZOFRAN 4 MG IV (00:18)
[2024-07-01 06:06] LABS: Hematocrit 26.3 % (39.0-52.0); Hemoglobin 9.1 g/dL (13.0-18.0); Mean Corp Hgb Conc. 34.6 g/dL (33.0-37.0); Mean Corpuscular Hgb 30.2 pg (27.0-31.0); Mean Corpuscular Volume 87.4 fL (80.0-94.0); Mean Platelet Volume 9.7 fL (7.4-10.4); Platelet Count 32 10^3/uL (130-400); Red Blood Cell Count 3.01 10^6/uL (4.70-6.10); Red Cell Dist. Width 17.3 % (11.5-14.5); White Blood Cell Count 6.3 10^3/uL (4.8-10.8)
[2024-07-01 06:25] LABS: Blood Urea Nitrogen 16 mg/dl (9-20); Calcium 7.5 mg/dl (8.4-10.2); Carbon Dioxide 27 mmol/L (22-30); Chloride 103 mmol/L (98-107); Estimated Creatinine Clearance 74 ml/min; Glucose 84 mg/dl (70-99); Magnesium 1.9 mg/dl (1.6-2.3); Phosphorus 3.2 mg/dl (2.5-4.5); Potassium 3.9 mmol/L (3.5-5.1); Sodium 135 mmol/L (135-145); eGFR > 60.00
[2024-07-01] MEDS: VITAMIN B-12 1000 MCG PO (08:18)
[2024-07-01] MEDS: NSS (PRESERVATIVE FREE) 10 ML IV (08:20)
[2024-07-01] MEDS: PROTONIX IV 40 MG IV (08:20)
[2024-07-01] MEDS: ULTRAM 25 MG PO (12:26)
--- NOTE | 2024-07-01 12:53 | W.PN.HOSP.TC ---
Today's Communication/Plan
-
discharge today to OP Onc f/u
Assessment / Plan
Assessment / Plan
Assessment:
GI bleed - Multifactorial, associated with gastric mass, anticoagulation and low platelet count. On XRT for gastroesophageal ca and recent pyloric stenting.
Acute blood loss anemia with baseline chronic anemia due to malignancy
Thrombocytopenia
- s/p 3 units PRBC and 9 platelet packs
- no active bleeding, d/w oncology service no indication for additional transfusions
- continue PPI BID
- LRD diet
- s/p EGD: noted Malignant gastric tumor with easy contact bleeding from the cardia to the 2nd portion of the duodenum with a patent stent in place
- outpatient Onc f/u for XRT evaluation
- continue prn pain control
Mild Hypokalemia
mild hypocalcemia
- replete prn
Hx DVT
- Venous duplex neg for DVT
- Xarelto stopped due to bleeding
B12 deficiency
- s/p IM B12 once
- high dose daily PO b12 supplementation started, cont
DVT ppx: SCDs
Code: Ful
Anticipated Discharge: Today
Subjective/Interval History
-
Date of Service: July 01, 2024
resting comfortably, no complaints
Objective Data
-
Labs:
Laboratory Results
07/01/24
05:49
WBC 6.3
Hgb 9.1 L D
Hct 26.3 L
Plt Count 32 L D
Sodium 135
Potassium 3.9
Chloride 103
Carbon Dioxide 27
BUN 16
Creatinine 0.8
Glucose 84
Calcium 7.5 L
Vital Signs:
Vital Signs
Temp Pulse Resp BP Pulse Ox
99.6 F 94 18 143/89 94
07/01/24 11:08 07/01/24 11:08 07/01/24 11:08 07/01/24 11:08 07/01/24 11:08
I&O
06/30/24 07/01/24 07/02/24
06:59 06:59 06:59
Intake Total 861 / 861 2301 / 2301
Output Total 500 / 500
Balance 861 / 861 1801 / 1801
Physical Exam
-
General: No Apparent Distress
HEENT: Normocephalic and Atraumatic
Respiratory: Negative Wheezes
Cardiac: Regular Rhythm and S1/S2
GI: Soft and Nontender
Neuro: AO x 3
Hematologic / Lymphatic: No Lymphadenopathy
Psych: Calm
Data Reviewed
-
Total Time Spent with Patient (in minutes): 45
Labs: Labs Reviewed by me
--- NOTE | 2024-07-01 13:09 | W.DS.TRANS ---
DC Summary - Plaster Block Layer
-
Discharge Instructions:
Discharge Diagnosis/Procedures acute GI bleed, anemia, thrombocytopenia
Diet Low Residue
Activity As tolerated
Bathing Restrictions None
Instructions:
Stand-Alone Forms:
Changes to Home Medications: Yes
Discharge Medications:
DC Medications w/original date entered in [employer]
atorvastatin 40 mg tablet 40 mg PO QPM High Cholesterol 08/13/23
cyanocobalamin (vitamin B-12) 1,000 mcg tablet (Vitamin B-12) 1,000 mcg PO DAILY #100 tabs 07/01/24
pantoprazole 40 mg tablet,delayed release 40 mg PO BID #60 tabs 07/01/24
tramadol 50 mg tablet 25 mg (1/2 x 50 mg) PO Q6HPRN PRN moderate severe pain #20 tabs 07/01/24
Home Medication Changes
Xarelto and aspirin stopped
Pending Results: No
Total time spent discharging patient (in min): 41
--- NOTE | 2024-07-01 13:36 | CM ---
Pt cleared for discharge today with plan for outpatient oncology follow up for XRT with Dr. Dobson.
Daughter will provide transport at discharge.
[2024-07-01] MEDS: LR IV (13:57)
[2024-07-01] MEDS: TYLENOL 650 MG PO (14:42)
--- NOTE | 2024-07-01 17:03 | PTCARENOTE ---
Discharge order written. Discharge instructions reviewed with patient and son at bedside. [place] director of product design used. No further questions. SubQ port de-accessed. IV site removed. Pt escorted to son's car by wheelchair.
== END 2024-07-01 16:59 | disposition home or self-care (01) | DRG 375 ==
LOC: 3 WEST ACU 20:17
PROVIDERS: Internal Medicine; Nurse Practitioner; Nurse Practitioner Acute Care; Nurse Practitioner Adult Health; ADMITTING PHYSICIAN Internal Medicine; ATTENDING PHYSICIAN Internal Medicine; CONSULT PHYSICIAN Internal Medicine; CONSULT PHYSICIAN Internal Medicine Hematology & Oncology; EMERGENCY PHYSICIAN Student in an Organized Health Care Education/Training Program; FAMILY PHYSICIAN Internal Medicine
PROC: 30243N1 Transfusion of Nonautologous Red Blood Cells into Central Vein, Percutaneous Approach (ICD-10-PCS; 2024-06-27)
PROC: 30243R1 Transfusion of Nonautologous Platelets into Central Vein, Percutaneous Approach (ICD-10-PCS; 2024-06-27)
PROC: 0DJ08ZZ Inspection of Upper Intestinal Tract, Via Natural or Artificial Opening Endoscopic (ICD-10-PCS; 2024-06-28)
DX: C16.0 Malignant neoplasm of cardia (principal); C79.51 Secondary malignant neoplasm of bone; K31.1 Adult hypertrophic pyloric stenosis; D68.32 Hemorrhagic disorder due to extrinsic circulating anticoagulants; D50.0 Iron deficiency anemia secondary to blood loss (chronic); D69.6 Thrombocytopenia, unspecified; E87.6 Hypokalemia; E83.51 Hypocalcemia; Z86.718 Personal history of other venous thrombosis and embolism; E53.8 Deficiency of other specified B group vitamins; I10 Essential (primary) hypertension; E78.00 Pure hypercholesterolemia, unspecified; Z87.891 Personal history of nicotine dependence; Z79.82 Long term (current) use of aspirin; I73.9 Peripheral vascular disease, unspecified; K63.5 Polyp of colon; K64.8 Other hemorrhoids; Z79.01 Long term (current) use of anticoagulants; D63.0 Anemia in neoplastic disease
CPT/HCPCS: 80048; 80053; 82607; 82728; 82746; 83540; 83550; 83735; 84100; 85014; 85018; 85025; 85027; 85379; 85384; 85610; 85730; 86850; 86900; 86901; 86920; 93005; 93970; 96361; 96374; 97162; 97166; 99284; P9016; P9073

== ENCOUNTER → 2024-07-05 15:26 | Outpatient (REF) | payer OTHER, SELFPAY ==
[2024-07-05 15:06] LABS: % Basophils 0.2 % (0-2); % Immature Granulocytes 9.1 % (0-0.5); % Monocytes 7.1 % (1.7-9.3); % Neutrophils 77.6 % (42.2-75.2); Absolute Eosinophils 0.1 10^3/uL (0-0.7); Absolute Immature Granulocytes 0.5 10^3/uL (0-0.05); Absolute Lymphocytes 0.3 10^3/uL (1.2-3.4); Absolute Monocytes 0.4 10^3/uL (0.1-0.6); Mean Corp Hgb Conc. 34.4 g/dL (33.0-37.0); Mean Corpuscular Hgb 29.9 pg (27.0-31.0); Mean Corpuscular Volume 86.7 fL (80.0-94.0); Red Blood Cell Count 2.41 10^6/uL (4.70-6.10); Red Cell Dist. Width 17.8 % (11.5-14.5); White Blood Cell Count 5.2 10^3/uL (4.8-10.8)
[2024-07-05 15:10] LABS: Hematocrit 20.9 % (39.0-52.0)
[2024-07-05 15:11] LABS: Hemoglobin 7.2 g/dL (13.0-18.0); Platelet Count 9 10^3/uL (130-400)
[2024-07-05 16:05] LABS: ALT (SGPT) 13 U/L (0-50); AST (SGOT) 29 U/L (17-59); Albumin 2.4 g/dl (3.5-5.0); Alkaline Phosphatase 443 U/L (38-126); Blood Urea Nitrogen 25 mg/dl (9-20); Calcium 7.3 mg/dl (8.4-10.2); Carbon Dioxide 26 mmol/L (22-30); Chloride 101 mmol/L (98-107); Glucose 110 mg/dl (70-99); Magnesium 2.2 mg/dl (1.6-2.3); Potassium 3.6 mmol/L (3.5-5.1); Sodium 135 mmol/L (135-145); Total Bilirubin 1.7 mg/dl (0.2-1.3); Total Protein 4.9 g/dl (6.3-8.2); eGFR > 60.00
== END ==
LOC: OIDL 15:26
PROVIDERS: ATTENDING PHYSICIAN Internal Medicine Hematology & Oncology
DX: C15.5 Malignant neoplasm of lower third of esophagus (principal)
CPT/HCPCS: 80053; 83735; 85025

== ENCOUNTER 2024-07-05 19:49 | Inpatient (IN) | payer OTHER, SELFPAY ==
[2024-07-05] VITALS (9 sets, daily range): BP systolic 129–146; BP diastolic 81–97; BMI 19.7; BMI 22.0
--- NOTE | 2024-07-05 17:45 | ED.GENMED ---
History of Present Illness
General
Chief Complaint: Abnormal Lab Value
Source: patient and family (Sister assisting with history, states that he was at oncology office and follows with Dr. Fontaine, and got IV fluids today. He was sent here due to his anemia. He has chronic stomach pain and has a stent in his stomach
due to cancer.)
Exam Limitations: none
Time Seen by Provider: 07/05/24 17:19
Nursing documentation reviewed up to this point in time: agreed with
History of Present Illness
History of Present Illness:
64-year-old male presents emergency department due to low hemoglobin and nausea. He is also having black stool. He was at oncology and received 1 L of fluid, likely normal saline. He was then sent to the emergency department due to his low
platelets and hemoglobin.
Past History
Past History
ED Past Medical History: HTN, Hypercholesterolemia and Other (Esophageal/gastric cancer, gastric tumor, DVT)
ED Past Surgical History: Other (vascular sx)
Social History
Tobacco: Former smoker
Alcohol: Occasional
Drug: None
Living: with family
Employment: Retired
Review of Systems
Review of Systems
Allergies reviewed?: Yes
All Other Systems: Not applicable
Constitutional: Reports no symptoms
EENT: Reports no symptoms
Respiratory: Reports no symptoms
Cardiac: Reports no symptoms
ABD/GI: Reports abdominal pain and black stools
: Reports no symptoms
Musculoskeletal: Reports no symptoms
Skin: Reports no symptoms
Neurological: Reports no symptoms
Endocrine: Reports no symptoms
Hematologic/Lymphatic: Reports no symptoms
Psychiatric: Reports no symptoms
Phy Exam
Physical Exam
Physical Exam:
Physical Exam
General: Pale, chronic ill appearance
Neck: supple. no meningeal signs. normal posterior pharynx
Heart: s1/s2 tachycardia, no murmur. equal radial
pulses.
HEENT: Pupils equal round reactive to light, EOMI
Lungs: no acute respiratory distress. clear bilaterally, port right upper chest
Abdomen: normal bowel sounds. not tender. no CVAT
Neuro: alert and oriented. no focal neurological deficits cranial nerves II through XII intact
Skin: no rash
Psychiatric: well kept. interactive and cooperative
Extremities: no edema. no calf tenderness. negative homans. good distal pulses
Course
Orders/Labs/Results
Orders:
Orders
07/05/24 18:00
* Blood Bank Products Urgent
's Orders: 1 unit prbc
Blood Bank Products: *Packed RBC Leuko(PRBC's)
Quantity: 1
Transfuse Today: Yes
Reason: Anemia
Pantoprazole [Protonix IV] 80 mg IV NOW STA
07/05/24 18:10
Blood Bank Products [* Blood Bank Products] Urgent
'reuben Orders: 1 unit platelets
Blood Bank Products: *Plt Single Donor Leuko
Quantity: 1
Transfuse Today: Yes
Reason: Thrombocytopenia
07/05/24 18:55
HYDROmorphone [Dilaudid] 0.5 mg IV NOW STA
Ondansetron Injectable [Zofran] 4 mg IV NOW STA
07/05/24 18:58
Admit/Transfer Patient As Directed
Co-Sign Provider:
Level of Care: Inpatient admission
Assign to:: Medical/Surgical
Physician / Group: hospitalist
Diagnosis: GI bleed
Reason for Hospitalization: GI bleed
Expected length of stay greater than two midnights?: Yes
ELOS- Estimated Length of Stay in days: 2
I certify the patient meets the requirements for IP care: Yes
PRN Pain Medication Management As Directed
May give lesser potent ordered pain med per pt: Yes
preference::
Protocol:: Medication orders for pain may be administered in a
manner that supports deferring to patient preference
when the pt is:
- Requesting an ordered lesser potent pain medication.
Least to most potent pain medications are defined
as: acetaminophen < NSAID < tramadol < opioids
(morphine, oxycodone, hydromorphone).
- Requesting a lesser dose of the same medication IF
ORDERED.
- Requesting a less intrusive route of administration
if both routes are prescribed by the provider (PO <
IV).
07/05/24 18:59
Code Status As Directed
Resuscitation Status: Full Code
07/05/24 19:17
Type And Crossmatch [Type+Screen] Urgent
Vital Signs
Initial and Last Documented VS:
Initial Vital Signs
Temp Pulse BP Pulse Ox
97.6 F 107 133/86 100
07/05/24 16:12 07/05/24 16:12 07/05/24 16:12 07/05/24 16:12
Last Documented Vital Signs
Temp Pulse Resp BP Pulse Ox
97.6 F 97 23 129/85 93
07/05/24 16:12 07/05/24 18:00 07/05/24 18:00 07/05/24 18:00 07/05/24 18:00
MDM/Problems Addressed
Differential Diagnosis Includes:
GI bleed, thrombocytopenia
MDM/Problems Addressed:
64-year-old male with stomach cancer, likely GI bleed, melena, thrombocytopenia, anemia.
Chronic conditions affecting care: Cancer (Stomach/esophageal cancer)
*Pulse Oximetry
Patient hypoxic: no
*Critical Care Note
Total Time (30-74mins, 75-104mins- exclusive of procedures): 32
comment:
Critical care statement: A total of 32 minutes of critical care time was provided for this patient. This includes management of unstable vital signs, evaluation of the patient at bedside, reviewing the patient's pertinent medical records, discussion
with consultants, review of old EKGs and review of pertinent medical records. This time with separate from time utilized to perform the aforementioned documented procedures.
Data Reviewed
Review of Other/Old Records Reveals: Labs (Hemoglobin 9.1 on 07/01/2024, platelets 32 on 07/01/2024)
Source: records
Patient Management
Social determinants of health affecting care: Living situation and Strong social support
Discussion with other providers: Hospitalist and Mother Baby Rn
Escalation/DeEscalation of care consider admission/obs:
Admit indicated
ED Attending Note
-
Portions of this chart may have been created with voice recognition software.� Occasional wrong word or��sound alike� substitutions may have occurred due to the inherent limitations of voice recognition software.
Discharge Plan
Departure
Patient Disposition: Admit
Date of Disposition: 07/05/24
Time of Disposition: 17:59
Admit to: IMU
Presentation/result/management discussed w/ accepting MD/DO: Hospitalist
Patient with high blood pressure during this ER visit?: Yes
Condition: Fair
Discharge Problem:
GI bleed, Malignant neoplasm of lower third of esophagus, Thrombocytopenia
Prescriptions:
No Action
pantoprazole 40 mg tablet,delayed release (DR/EC)
40 mg PO BID Qty: 60 0RF
ondansetron HCl [Zofran] 8 mg Tablet
8 mg PO Q8HPRN PRN (Reason: nausea)
lorazepam 0.5 mg Tablet
0.5 mg PO Q6HPRN PRN (Reason: nausea)
tramadol 50 mg tablet
50 mg PO Q6HPRN PRN (Reason: moderate severe pain)
atorvastatin [Lipitor] 40 mg Tablet
40 mg PO QPM
valsartan 80 mg Tablet
80 mg PO DAILYPRN PRN (Reason: blood pressure)
Interventions
Interventions:
*Risk Screen - Suicide Last Done: 07/05/24 16:12
*General Assessment Last Done: 07/05/24 17:46
*Neglect/Abuse Screening Last Done: 07/05/24 16:12
*ED- Fall Risk Assessment Last Done: 07/05/24 18:54
Discharge Date and Time
Print Language: Ukranian
--- NOTE | 2024-07-05 18:34 | HPS.HSE ---
Family Physician
-
Family Physician: Satish Reed
Chief Complaint
-
Abnormal Hemoglobin and platelet counts
History of Present Illness
This is a 64-year-old with past medical history that is significant for gastric adenocarcinoma, pyloric stenosis status post stenting, status post radiation treatment and chemo for the gastric cancer, complicated history of GI bleed likely secondary
to malignant gastric tumor presents to the emergency department with low platelet and hemoglobin counts from the oncologist clinic.
Patient was recently admitted to this hospital for melena and GI bleed. At the time he was on Xarelto and aspirin. He had borderline low platelet count of 51. Ultimately required transfusion of both blood and platelets. He had an EGD that showed
'malignant gastric tumor with easy contact bleeding from the cardia to the second portion of the duodenum with the patent stent in place. There was no significant blood present but easily used with contact. This was found to be the source of his
melena and anemia which is exacerbated by thrombocytopenia and Xarelto'. At the time the patient was discontinued on Xarelto. No further interventions could be performed unfortunately and this was discussed with hospitalist and patient's family.
He was discharged to outpatient follow-up with oncology.
On his follow-up test today was found to have a low platelet and low hemoglobin. Patient's family reports that he did have melanotic stool today which he has not had since he was discharged from the hospital. Denies bright red blood per rectum.
Continues to have abdominal pain and nausea but no vomiting.
Here in the emergency department he remains hemodynamic stable with a blood pressure of 129/85 and pulse of 97. He is at 90% on room air.
Hemoglobin from this month was 7.2 with a platelet of 9. Electrolytes BUN/creatinine were stable.
Medical History
Past Medical History
Past Medical History: Reports Other
Additional Past Medical History:
Esophagael Ca
Essential HTN
Hypercholesterolemia
vasculopathy
microcytic anemia
Past Surgical History: Reports Other
Additional Past Surgical History:
clot removal surgery
LE vascular bypass surgery
Social History
Tobacco: Non-smoker
Alcohol: Occasional
Drug: None
Living: With Family
Employment: Not Employed
Family History
Family History: Not pertinent
Allergies / Home Medications
Allergies reflects when Allergies were last updated in [facility].
Home Medications with original date entered in [facility]
Allergy/Medication List:
Allergies
Allergy/AdvReac Type Severity Reaction Status Date / Time
No Known Allergies Allergy Verified 07/05/24 17:48
Home Medications
pantoprazole 40 mg tablet,delayed release 40 mg PO BID #60 tabs 07/01/24
tramadol 50 mg tablet 25 mg (1/2 x 50 mg) PO Q6HPRN PRN moderate severe pain #20 tabs 07/01/24
lorazepam 0.5 mg tablet 0.5 mg PO Q6HPRN PRN nausea 07/05/24
ondansetron HCl 8 mg tablet 8 mg PO Q8H PRN nausea 07/05/24
Review of Systems
-
History Source: Patient and Family
Constitutional: Reports No Symptoms
EENT: Reports No Symptoms
Respiratory: Reports No Symptoms
Cardiac: Reports No Symptoms
Abdomen/GI: Reports Nausea and Black Stools
: Reports No Symptoms
Musculoskeletal: Reports No Symptoms
Skin: Reports No Symptoms
Neurological: Reports No Symptoms
Endocrine: Reports No Symptoms
Hematologic/Lymphatic: Reports No Symptoms
Psych: Reports No Symptoms
Physical Exam
Vital Signs
Vital Signs
Temp Pulse Resp BP Pulse Ox
97.6 F 97 23 129/85 93
07/05/24 16:12 07/05/24 18:00 07/05/24 18:00 07/05/24 18:00 07/05/24 18:00
Physical Exam
General: Well Developed, Comfortable and Poor Appetite
HEENT: NormoCephalic, Anicteric, Moist mucous membranes and Atraumatic
Respiratory: Clear
Cardiac: S1/S2 and Regular Rhythm
Breast: Deferred by me
GI: Soft, Non Tender, Non Distended and Normal Bowel Sounds
Rectal: Black and Hem Positive
Genito-urinary: Deferred by me
Musculoskeletal: No Clubbing, No Cyanosis and No Edema
Skin: Warm
Neuro: Awake, AO x 3 and Nonfocal/grossly intact
Hematologic/Lymphatic: No Lymphadenopathy
Psych: Calm
Laboratory Results
-
06/26/24 18:15
06/26/24 18:15
Laboratory Results
Total Bilirubin 0.7 mg/dl (0.2-1.3) 06/26/24 18:15
AST 27 U/L (17-59) 06/26/24 18:15
ALT 11 U/L (0-50) 06/26/24 18:15
Alkaline Phosphatase 242 U/L (38-126) H 06/26/24 18:15
Data Reviewed
-
Lab Data: Labs Reviewed by me
Old Records: Reviewed
Impression/Plan
-
IMPRESSION:
64-year-old with malignant gastric tumor found to have easy contact bleeding during his last endoscope on 06 28. After discontinuation of Xarelto and platelet transfusion patient's bleeding appeared to have ceased until today. Started having melena
regain. Found to have a platelet count of 9 in oncology clinic. Reviewed findings from last hospitalization with family and they appear to have understood the details and the implications. Fortunately there is no other treatment for his melena
right now with diet and bringing up his platelets and supporting his blood counts with appropriate transfusions.
PLAN:
1. GI bleed -gastric malignancy with easy bleeding, patient currently on radiation treatment for the gastric mass. The combination of radiation treatment, low platelet and easily bleeding mass in an acidic environment likely resulting in ongoing GI
bleed blood loss.
- admit to telemetry observation
- IV PPI BID
- transfuse for platelet goal > 50 given bleeding
- transfuse for Hgb > 7
- trend CBC q 6 hours
- clear liquid diet for now in setting of new melena
- supportive measures, IVF, pain control and antiemetics
- no indication for repeat GI consult
2. Thrombocytopenia - T bili 1.7. Suspect due to XRT/malignancy. Unlikely consumptive process such as DIC.
- transfusion as above.
- thrombotic/fibrinolytic panel likely confounded by malignancy so will hold off for now
- consult to heme
DVT PPX - SCDs
Code Status - Full code
[2024-07-05] MEDS: PROTONIX IV 80 MG IV (18:43)
[2024-07-05] MEDS: ZOFRAN 4 MG IV ×2 (19:01→23:03)
[2024-07-05] MEDS: DILAUDID 0.5 MG IV ×2 (19:03→23:02)
[2024-07-05] MEDS: D5/0.9% SODIUM CHLORIDE 1000 IV (21:07)
--- NOTE | 2024-07-05 22:49 | PTCARENOTE ---
Pt admitted to 4W. Pt able to walk from stretcher to bed. AAO x3 [place] speaking family at bedside. Pt oriented to room, safety measures in place call swanson within reach.
[2024-07-06] VITALS (20 sets, daily range): BP systolic 130–146; BP diastolic 76–94; BMI 22.0
[2024-07-06 02:03] LABS: Hematocrit 21.1 % (39.0-52.0); Hemoglobin 7.4 g/dL (13.0-18.0); Mean Corp Hgb Conc. 35.1 g/dL (33.0-37.0); Mean Corpuscular Hgb 30.3 pg (27.0-31.0); Mean Corpuscular Volume 86.5 fL (80.0-94.0); Platelet Count 6 10^3/uL (130-400); Red Blood Cell Count 2.44 10^6/uL (4.70-6.10); Red Cell Dist. Width 16.7 % (11.5-14.5); White Blood Cell Count 4.6 10^3/uL (4.8-10.8)
[2024-07-06] MEDS: ATIVAN 0.5 MG PO (03:02)
[2024-07-06] MEDS: ULTRAM 50 MG PO (03:03)
[2024-07-06 05:56] LABS: % Basophils 0.2 % (0-2); % Eosinophils 1.7 % (0-6); % Lymphocytes 3.5 % (20.5-51.1); % Monocytes 6.9 % (1.7-9.3); % Neutrophils 77.4 % (42.2-75.2); Absolute Eosinophils 0.1 10^3/uL (0-0.7); Absolute Immature Granulocytes 0.5 10^3/uL (0-0.05); Absolute Lymphocytes 0.2 10^3/uL (1.2-3.4); Absolute Monocytes 0.3 10^3/uL (0.1-0.6); Absolute Neutrophils 3.8 10^3/uL (1.4-6.5); Hematocrit 20.2 % (39.0-52.0); Mean Corp Hgb Conc. 34.8 g/dL (33.0-37.0); Mean Corpuscular Hgb 29.8 pg (27.0-31.0); Mean Corpuscular Volume 85.5 fL (80.0-94.0); Mean Platelet Volume 8.4 fL (7.4-10.4); Nucleated Red Blood Cells % 1.8 % (-); Platelet Count 13 10^3/uL (130-400); Red Blood Cell Count 2.35 10^6/uL (4.70-6.10); Red Cell Dist. Width 16.6 % (11.5-14.5); White Blood Cell Count 4.9 10^3/uL (4.8-10.8)
[2024-07-06 06:06] LABS: Blood Urea Nitrogen 23 mg/dl (9-20); Calcium 7.4 mg/dl (8.4-10.2); Carbon Dioxide 27 mmol/L (22-30); Chloride 107 mmol/L (98-107); Estimated Creatinine Clearance 92 ml/min; Glucose 113 mg/dl (70-99); Potassium 3.7 mmol/L (3.5-5.1); Sodium 136 mmol/L (135-145); eGFR > 60.00
--- NOTE | 2024-07-06 07:40 | PTCARENOTE ---
Rec'd pt from previous shift. First of 2 units of platelets started. Pt denies pain. Per blood band second unit [facility] Pt to receive a unit of PRBC after the first unit of platelets.
--- NOTE | 2024-07-06 08:00 | CON.ONC ---
Impression
Impression
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
Recurrent GI bleed
Thrombocytopenia
Anemia
History of GOO post stent placement
History of lower extremity thrombosis 2021
Plan
Plan
Transfuse hemoglobin less than 8.0 with active bleeding
Platelet transfusion minimally effective suggesting an immune component of thrombocytopenia
Consumptive causes of severe thrombocytopenia such as ITP more than a month from cytotoxic therapy
Patient status post transfusion in the emergency room with minimal increase to 13K
Hesitant to administer steroids in light of active GE junction/gastric bleeding fear of worsening mucosal risks
IVIG 0.5 mg/kg x 4days
Continue to hold aspirin and Xarelto
Patient has not initiated systemic therapy, plan was to initiate Cyramza and Taxol
Previous progressive disease on FOLFOX and pembrolizumab=> pembrolizumab maintenance=> PD
Currently receiving radiation therapy
Avoid Lovenox
Sequential JAIRO recommended
Received hydration in the office yesterday
Patient History
History of Present Illness
64-year-old Mongolian speaking gentleman known to me as I performed performed a consultation last week now returns to the office gastric adenocarcinoma, pyloric stenosis status post stenting, status post radiation treatment and chemo for the gastric
cancer, complicated history of GI bleed likely secondary to malignant gastric tumor presents to the emergency department with low platelet and hemoglobin counts from the oncologist clinic patient was recently admitted to this hospital for melena and
GI bleed. At the time he was on Xarelto and aspirin. He had borderline low platelet count of 51. Ultimately required transfusion of both blood and platelets. He had an EGD that showed malignant gastric tumor with easy contact bleeding from the
cardia to the second portion of the duodenum with the patent stent in place. There was no significant blood present but easily used with contact. This was found to be the source of his melena and anemia which is exacerbated by thrombocytopenia and
Xarelto. At the time the patient was discontinued on Xarelto. No further interventions could be performed unfortunately and this was discussed with hospitalist and patient's family. He has initiated palliative radiation therapy. Patient and
family reported melanotic stool which he has not had since he was discharged from the hospital.
.
Past-Medical/Surgical History
Past Medical History
Esophagael Ca
Essential HTN
Hypercholesterolemia
vasculopathy
microcytic anemia
Past Surgical History: Reports Other
Additional Past Surgical History:
clot removal surgery
LE vascular bypass surgery
Social History
Tobacco: Non-smoker
Alcohol: Occasional
Drug: None
Living: With Family
Employment: Not Employed
Family History
Family History: Not pertinent
Patient Medication
�Medication �Instructions �Recorded �Confirmed �Last Taken �Type
pantoprazole 40 mg tablet,delayed 40 mg PO BID #60 tabs 07/01/24 07/05/24 07/05/24 Rx
release
atorvastatin 40 mg tablet (Lipitor) 40 mg PO QPM 07/05/24 07/05/24 07/04/24 History
lorazepam 0.5 mg tablet 0.5 mg PO Q6HPRN PRN nausea 07/05/24 07/05/24 Unknown History
ondansetron HCl 8 mg tablet 8 mg PO Q8HPRN PRN nausea 07/05/24 07/05/24 07/05/24 History
tramadol 50 mg tablet 50 mg PO Q6HPRN PRN moderate 07/05/24 07/05/24 07/04/24 History
severe pain
valsartan 80 mg tablet 80 mg PO DAILYPRN PRN blood 07/05/24 07/05/24 Unknown History
pressure
Active Medications
Generic Name Dose Route Start Last Admin
Trade Name Freq PRN Reason Stop Dose Admin
Acetaminophen 650 mg 07/05/24 20:35
Acetaminophen 325 Mg Tablet PO 08/02/24 20:34
Q6HPRN PRN
mild pain/ fever>100.5F
Atorvastatin Calcium 40 mg 07/06/24 18:00
Atorvastatin (Lipitor) 40 Mg Tablet PO 08/03/24 17:59
QPM LARRY
Hydromorphone HCl 0.5 mg 07/05/24 20:41 07/05/24 23:02
Hydromorphone 0.5 Mg/0.5 Ml Syringe IV 07/19/24 20:40 0.5 mg
Q4HPRN PRN Administration
moderate pain
Dextrose/Sodium Chloride 1,000 mls @ 75 mls/hr 07/05/24 20:35 07/05/24 21:07
D5/0.9% Sodium Chloride IV 1,000 mls
.[id number] LARRY Administration
Lorazepam 0.5 mg 07/05/24 20:35 07/06/24 03:02
Lorazepam 0.5 Mg Tablet PO 08/02/24 20:34 0.5 mg
Q8HPRN PRN Administration
nausea/vomiting if zofran fail
Ondansetron HCl 4 mg 07/05/24 20:35 07/05/24 23:03
Ondansetron 4 Mg/2 Ml Vial IV 08/02/24 20:34 4 mg
Q6HPRN PRN Administration
NAUSEA/VOMITING
Pantoprazole Sodium 40 mg 07/06/24 08:00
Pantoprazole Sodium 40 Mg/10 Ml Vial IV 08/03/24 07:59
BID LARRY
Sodium Chloride 0 flush 07/05/24 21:00
Sodium Chloride 0.9% (Flush) Syringe IV 08/02/24 20:59
PER PROTOCOL LARRY
Sodium Chloride 10 ml 07/06/24 08:00
Sodium Chloride 0.9% (Preservative Free) 10 Ml Vial IV 08/03/24 07:59
BID LARRY
Tramadol HCl 50 mg 07/05/24 20:35 07/06/24 03:03
Tramadol Hcl 50 Mg Tablet PO 08/02/24 20:34 50 mg
Q6HPRN PRN Administration
moderate pain
Review of Systems
-
12 point review of systems fails elicit additional complaints other than those reviewed in HPI
Physical Exam
-
Physical Exam
General: Well Developed
HEENT: Anicteric, Moist mucous membranes and Atraumatic
Respiratory: Clear without rales
Cardiac: S1/S2 and Regular Rhythm
GI: Soft, Non Tender, Non Distended and Normal Bowel Sounds
Musculoskeletal: No Clubbing, No Cyanosis and No Edema
Skin: Warm
Neuro: Awake, AO x 3 and Nonfocal/grossly intact
Hematologic/Lymphatic: No Lymphadenopathy
Psych: Calm
Labs
Lab Results
WBC Cancelled 07/06/24 06:00
RBC Cancelled 07/06/24 06:00
Hgb Cancelled 07/06/24 06:00
Hct Cancelled 07/06/24 06:00
MCV Cancelled 07/06/24 06:00
MCH Cancelled 07/06/24 06:00
MCHC Cancelled 07/06/24 06:00
RDW Cancelled 07/06/24 06:00
Plt Count Cancelled 07/06/24 06:00
MPV Cancelled 07/06/24 06:00
Abs Immat Gran (auto) Cancelled 07/06/24 06:00
Absolute Neuts (auto) Cancelled 07/06/24 06:00
Absolute Lymphs (auto) Cancelled 07/06/24 06:00
Absolute Monos (auto) Cancelled 07/06/24 06:00
Absolute Eos (auto) Cancelled 07/06/24 06:00
Absolute Basos (auto) Cancelled 07/06/24 06:00
Immature Gran % Cancelled 07/06/24 06:00
Neutrophils % Cancelled 07/06/24 06:00
Lymphocytes % Cancelled 07/06/24 06:00
Monocytes % Cancelled 07/06/24 06:00
Eosinophils % Cancelled 07/06/24 06:00
Basophils % Cancelled 07/06/24 06:00
Creatinine 0.7 mg/dL (0.7-1.3) 07/06/24 05:41
Vital Signs
Vital Signs
Temp Pulse Resp BP Pulse Ox
98.0 F 96 18 137/80 100
07/06/24 07:59 07/06/24 07:59 07/06/24 07:59 07/06/24 07:59 07/06/24 07:59
[2024-07-06] MEDS: PROTONIX IV 40 MG IV ×2 (09:06→20:12)
[2024-07-06] MEDS: NSS (PRESERVATIVE FREE) 10 ML IV ×2 (09:06→20:12)
[2024-07-06] MEDS: D5/0.9% SODIUM CHLORIDE 1000 IV (10:20)
[2024-07-06] MEDS: ZOFRAN 4 MG IV ×2 (11:14→18:41)
[2024-07-06] MEDS: DILAUDID 0.5 MG IV ×3 (11:18→20:16)
--- NOTE | 2024-07-06 13:33 | W.PN.HOSP.TC ---
Today's Communication/Plan
-
Transfuse platelets
Transfuse PRBC
Repeat CBC later today
IVIG
Autoimmune workup for thrombocytopenia initiated
Advance diet to full's
Assessment / Plan
Assessment / Plan
IMPRESSION:
64-year-old with malignant gastric tumor found to have easy contact bleeding during his last endoscope on 06 28. After discontinuation of Xarelto and platelet transfusion patient's bleeding appeared to have ceased until today. Started having melena
regain. Found to have a platelet count of 9 in oncology clinic. Reviewed findings from last hospitalization with family and they appear to have understood the details and the implications. Fortunately there is no other treatment for his melena
right now with diet and bringing up his platelets and supporting his blood counts with appropriate transfusions.
PLAN:
Symptomatic anemia likely secondary to stage IV gastric esophageal junction adenocarcinoma with mets to the bones normal lung colonic metastasis
- IV PPI BID
- transfuse for platelet goal > 50 given bleeding
- transfuse for Hgb > 8
- Repeat CBC later today after transfusions
- Received 3 units of platelets so far.
- supportive measures, IVF, pain control and antiemetics
- Patient underwent endoscopy on 06/28/2024 which showed malignant gastric tumor with easy contact bleeding from the cardia to the second portion of duodenum with a patent stent in place. No significant blood pressure in but easily oozing in the
setting of contact. This is a source of his melena and anemia which is exacerbated by thrombocytopenia and Xarelto use. Pre-existing patent stent in the pylorus with contact oozing throughout.
- Patient off aspirin and Xarelto
Stage IV gastric adenocarcinoma
- With metastasis
- Oncology following
Thrombocytopenia - T bili 1.7. Suspect due to XRT/malignancy. Concern for ITP
- transfusion as above.
- Antiphospholipid and platelet associated antibodies ordered. Increased risk of bleeding with prednisone
-IVIG ordered times for 4 days
- Oncology following
Primary hypertension
-Hold meds in the setting of severe anemia and possible bleeding
Hyperlipidemia
-Continue with statin
DVT PPX - SCDs in the setting of severe thrombocytopenia
Code Status - Full code
Discussed with patient daughter over the phone in detail
Anticipated Discharge: > 48 hours
Subjective/Interval History
-
Date of Service: July 06, 2024
Receiving platelets currently
Objective Data
-
Labs:
Laboratory Results
07/06/24 07/06/24 07/06/24
01:42 05:41 06:00
WBC 4.6 L 4.9 Cancelled
Hgb 7.4 L 7.0 L Cancelled
Hct 21.1 L 20.2 L* Cancelled
Plt Count 6 L* D 13 L* D Cancelled
Sodium 136
Potassium 3.7
Chloride 107
Carbon Dioxide 27
BUN 23 H
Creatinine 0.7
Glucose 113 H
Calcium 7.4 L
Vital Signs:
Vital Signs
Temp Pulse Resp BP Pulse Ox
98.2 F 98 16 135/81 97
07/06/24 12:36 07/06/24 12:36 07/06/24 12:36 07/06/24 12:36 07/06/24 12:36
I&O
07/05/24 07/06/24 07/07/24
06:59 06:59 06:59
Intake Total 1200 / 1200 485 / 485
Output Total 125 / 125 200 / 200
Balance 1075 / 1075 285 / 285
Physical Exam
-
General: No Apparent Distress
HEENT: Normocephalic, Atraumatic and Other (Port noted)
Respiratory: Negative Wheezes
Cardiac: Regular Rhythm and S1/S2
GI: Soft, Nontender, Nondistended and Normal Bowel Sounds
Musculoskeletal: No Edema
Neuro: Awake, Alert, Oriented and AO x 3
Psych: Calm
Data Reviewed
-
Total Time Spent with Patient (in minutes): 55
[2024-07-06] MEDS: GAMMAGARD 200 IV (15:17)
[2024-07-06] MEDS: GAMMAGARD 50 IV (17:50)
[2024-07-06] MEDS: LIPITOR PO (18:11)
[2024-07-06 18:18] LABS: Hematocrit 22.1 % (39.0-52.0); Hemoglobin 7.6 g/dL (13.0-18.0); Mean Corp Hgb Conc. 34.4 g/dL (33.0-37.0); Mean Corpuscular Hgb 29.9 pg (27.0-31.0); Mean Platelet Volume 9.7 fL (7.4-10.4); Platelet Count 11 10^3/uL (130-400); Red Blood Cell Count 2.54 10^6/uL (4.70-6.10); Red Cell Dist. Width 16.3 % (11.5-14.5)
--- NOTE | 2024-07-06 18:32 | PTCARENOTE ---
Addendum entered by Jami East RN 07/06/24 19:02:
Dr Quarles and family aware that there are no platelets in house. [facility]
Original Note:
Dr Quarles aware of platelets of 11 and hemoglobin of 7.6. pt to receive another pool of platelets and a unit of PRBC
[2024-07-06 19:14] LABS: Absolute Neutrophils -Man Diff 3.4 10^3/uL (1.4-6.5); Band Neutrophils 7 % (0-3); Eosinophils 1 % (0-6); Lymphocytes 4 % (20-51); Metamyelocytes 3 % (-); Monocytes 6 % (2-9); Myelocytes 1 % (-); Platelets Checked Yes; Segmented Neutrophils 78 % (42-75)
[2024-07-06 19:16] LABS: Acanthocytes Slight; Burr Cells Slight; Normal RBC Morphology No; Nucleated Red Blood Cells 2 (-); Ovalocytes Slight; Polychromasia 1+; Total Cells Counted 100
[2024-07-07] VITALS (7 sets, daily range): BP systolic 133–149; BP diastolic 81–94
[2024-07-07] MEDS: DILAUDID 0.5 MG IV ×6 (00:18→21:37)
[2024-07-07 03:12] LABS: Hematocrit 26.5 % (39.0-52.0); Hemoglobin 9.4 g/dL (13.0-18.0); Mean Corp Hgb Conc. 35.5 g/dL (33.0-37.0); Mean Corpuscular Hgb 30.5 pg (27.0-31.0); Platelet Count 14 10^3/uL (130-400); Red Blood Cell Count 3.08 10^6/uL (4.70-6.10); Red Cell Dist. Width 15.9 % (11.5-14.5); White Blood Cell Count 4.9 10^3/uL (4.8-10.8)
[2024-07-07] MEDS: ZOFRAN 4 MG IV ×3 (04:42→21:37)
[2024-07-07 07:54] LABS: Hematocrit 25.8 % (39.0-52.0); Mean Corp Hgb Conc. 34.9 g/dL (33.0-37.0); Mean Corpuscular Hgb 30.2 pg (27.0-31.0); Mean Corpuscular Volume 86.6 fL (80.0-94.0); Platelet Count 10 10^3/uL (130-400); Red Blood Cell Count 2.98 10^6/uL (4.70-6.10); Red Cell Dist. Width 15.8 % (11.5-14.5); White Blood Cell Count 5.1 10^3/uL (4.8-10.8)
[2024-07-07] MEDS: GAMMAGARD 200 IV (08:57)
[2024-07-07] MEDS: PROTONIX IV 40 MG IV ×2 (09:05→20:43)
[2024-07-07] MEDS: NSS (PRESERVATIVE FREE) 10 ML IV ×2 (09:05→20:43)
--- NOTE | 2024-07-07 09:41 | W.PN.ONC ---
Today's Communication / Plan
-
Platelet transfusions minimally effective
Oxaliplatin associated with development of ITP
Consumptive causes of severe thrombocytopenia such as ITP more than a month from cytotoxic therapy
Patient status post transfusion in the emergency room with minimal increase to 13K
Platelets 10K IgG currently being administered
If refractory may need steroids less enthusiastic about steroids in light of active GE junction/gastric bleeding fear of worsening mucosal risks
Continue to hold aspirin and Xarelto
Patient has not initiated systemic therapy, plan was to initiate Cyramza and Taxol
Previous progressive disease on FOLFOX and pembrolizumab=> pembrolizumab maintenance=> PD
Receiving palliativeradiation therapy
Avoid Lovenox
Reviewed with patient and family connected by telephone
Sequential JAIRO
Impression
Impression
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
Recurrent GI bleed
Thrombocytopenia
Anemia
History of GOO post stent placement
History of lower extremity thrombosis 2021
Plan
Plan
Transfuse hemoglobin less than 8.0 with active bleeding
Josephine
Subjective/Objective
Subjective/Objective
No new complaints. No bleeding overnight. Tolerating gammaglobulin.
Vital Signs:
Vital Signs
Temp Pulse Resp BP Pulse Ox
97.7 F 93 18 135/81 97
07/07/24 07:00 07/07/24 07:00 07/07/24 07:00 07/07/24 07:00 07/07/24 07:00
Physical exam unchanged
Lab Results:
Laboratory Data
WBC 5.1 10^3/uL (4.8-10.8) 07/07/24 07:16
Hgb 9.0 g/dL (13.0-18.0) L 07/07/24 07:16
Plt Count 10 10^3/uL (130-400) L* D 07/07/24 07:16
eGFR > 60.00 07/06/24 05:41
Orders
Orders
Orders From Last 24 Hours
07/06/24 11:32
Phospholipid Antibody Panel Routine
Platelet Assoc Ab, Direct [S] Routine
07/06/24 12:00
Immune Globulin 20 Grams/200Ml [Gammagard] 20 gram in 200 ml IV DAILY
Immune Globulin 5 Grams/50 ml [Gammagard] 5 gram in 50 ml IV DAILY
[2024-07-07 10:04] LABS: Band Neutrophils 11 % (0-3); Eosinophils 1 % (0-6); Lymphocytes 4 % (20-51); Metamyelocytes 4 % (-); Monocytes 6 % (2-9); Myelocytes 6 % (-); Segmented Neutrophils 68 % (42-75)
[2024-07-07 10:05] LABS: Platelets Checked Yes
[2024-07-07 10:07] LABS: Normal RBC Morphology Yes; Total Cells Counted 100
[2024-07-07] MEDS: ULTRAM 50 MG PO ×2 (11:33→20:43)
[2024-07-07] MEDS: GAMMAGARD 50 IV (12:08)
--- NOTE | 2024-07-07 12:32 | W.PN.HOSP.TC ---
Today's Communication/Plan
-
Continue with IVIG
Trend hemoglobin and platelets
Dietary eval
Advance diet
Will start IV fluids for now
Assessment / Plan
Assessment / Plan
IMPRESSION:
64-year-old with malignant gastric tumor found to have easy contact bleeding during his last endoscope on 06 28. After discontinuation of Xarelto and platelet transfusion patient's bleeding appeared to have ceased until today. Started having melena
regain. Found to have a platelet count of 9 in oncology clinic. Reviewed findings from last hospitalization with family and they appear to have understood the details and the implications. Fortunately there is no other treatment for his melena
right now with diet and bringing up his platelets and supporting his blood counts with appropriate transfusions.
PLAN:
Symptomatic anemia likely secondary to stage IV gastric esophageal junction adenocarcinoma with mets to the bones normal lung colonic metastasis
- IV PPI BID
- Platelets at 10K unclear if would benefit from further transfusion as did not improve much after 4 units of platelets so far
- transfuse for Hgb > 8. Currently at 9 status post 2 units of PRBC so far.
- supportive measures, IVF, pain control and antiemetics
- Patient underwent endoscopy on 06/28/2024 which showed malignant gastric tumor with easy contact bleeding from the cardia to the second portion of duodenum with a patent stent in place. No significant blood pressure in but easily oozing in the
setting of contact. This is a source of his melena and anemia which is exacerbated by thrombocytopenia and Xarelto use. Pre-existing patent stent in the pylorus with contact oozing throughout.
- Patient off aspirin and Xarelto
Stage IV gastric adenocarcinoma
- With metastasis
- Dietary eval
- Oncology following
Thrombocytopenia - T bili 1.7. Suspect due to XRT/malignancy. Concern for ITP
- transfusion as above.
- Antiphospholipid and platelet associated antibodies ordered. Increased risk of bleeding with prednisone
-IVIG ordered times for 4 days
- Oncology following
Primary hypertension
-Hold meds in the setting of severe anemia and significant decreased appetite.
Hyperlipidemia
-Continue with statin
DVT PPX - SCDs in the setting of severe thrombocytopenia
Code Status - Full code
Discussed with patient eldest daughter over the phone in details
Anticipated Discharge: > 48 hours
Subjective/Interval History
-
Date of Service: July 07, 2024
States still poor appetite
Intermittent abdominal pain
Objective Data
-
Labs:
Laboratory Results
07/07/24 07/07/24
02:42 07:16
WBC 4.9 5.1
Hgb 9.4 L D 9.0 L
Hct 26.5 L 25.8 L
Plt Count 14 L* D 10 L* D
Vital Signs:
Vital Signs
Temp Pulse Resp BP Pulse Ox
98.3 F 96 16 138/82 98
07/07/24 09:15 07/07/24 09:15 07/07/24 09:15 07/07/24 09:15 07/07/24 09:15
I&O
07/06/24 07/07/24 07/08/24
06:59 06:59 06:59
Intake Total 1200 / 1200 2449 / 2449
Output Total 125 / 125 1025 / 1025 350 / 350
Balance 1075 / 1075 1424 / 1424 -350 / -350
Data Reviewed
-
Total Time Spent with Patient (in minutes): 55
[2024-07-07] MEDS: D5LR 1000 IV (14:04)
--- NOTE | 2024-07-07 15:28 | CM ---
CM reviewed chart, patient asleep bedside. Call to patients daughter, Carmita, left voicemail to complete initial assessment. Patient recently d/c from [facility].
Per previous CM note 06/27/24: Patient resides with daughter in a two story home, no DME, no VN/SNF history. PCP Satish Reed, [facility]. Oncology following patient. CM will continue to follow for all discharge planning needs.
Plan; home with daughter likely
[2024-07-07] MEDS: LIPITOR 40 MG PO (18:07)
[2024-07-08] VITALS (21 sets, daily range): BP systolic 115–143; BP diastolic 63–121
[2024-07-08] MEDS: DILAUDID 0.5 MG IV ×6 (02:08→23:39)
[2024-07-08] MEDS: D5LR 1000 IV (02:17)
[2024-07-08 05:51] LABS: Hematocrit 16.9 % (39.0-52.0); Mean Corp Hgb Conc. 35.5 g/dL (33.0-37.0); Mean Corpuscular Hgb 30.8 pg (27.0-31.0); Mean Corpuscular Volume 86.7 fL (80.0-94.0); Platelet Count 3 10^3/uL (130-400); Red Blood Cell Count 1.95 10^6/uL (4.70-6.10); Red Cell Dist. Width 16.2 % (11.5-14.5); White Blood Cell Count 4.8 10^3/uL (4.8-10.8)
--- NOTE | 2024-07-08 06:02 | W.PN.UPDATE ---
Update Note
Progress Note Update
AM labs critical value: Hgb 6/Hct 16.9, Ordered 2 units PRBC's to transfused today. Platelet result 3, defer decision for platelets to Attending/Consults.
[2024-07-08 07:48] LABS: Band Neutrophils 14 % (0-3); Eosinophils 1 % (0-6); Lymphocytes 3 % (20-51); Metamyelocytes 5 % (-); Monocytes 6 % (2-9); Segmented Neutrophils 71 % (42-75)
[2024-07-08 07:49] LABS: Anisocytosis 1+; Hypochromasia 1+; Normal RBC Morphology No; Nucleated Red Blood Cells 9 (-); Platelets Checked Yes; Polychromasia 1+
[2024-07-08 07:50] LABS: Acanthocytes 1+; Ovalocytes 1+; Total Cells Counted 100
--- NOTE | 2024-07-08 08:35 | PTCARENOTE ---
[address] Vick aware, 2 units units of PRBC's ordered. Started one unit Of PRBC's. Checked with second RN as per protocol. VS stable.
Stayed with pt first 15 minutes, pt tolerated transfusion, continue to monitor pt closely.
[2024-07-08 09:08] LABS: Platelet Antibody, Direct IgG Negative (Negative); Platelet Antibody, Direct IgM Positive (Negative)
--- NOTE | 2024-07-08 09:45 | PTCARENOTE ---
09:40 Pt vomited aproximately 200 ml of blood/fluid. DR. Vick notified. ordered to keep NPO and GI consult. Explain to pt, continue to monitor pt closely.
--- NOTE | 2024-07-08 10:03 | W.PN.HOSP.TC ---
Today's Communication/Plan
-
Red blood cell transfusion
Platelet transfusion
N.p.o.
Antiemetics
GI consult
Transfer to IMU
Assessment / Plan
Assessment / Plan
Gen-AAOx3, NAD
HEENT-NC, AT, anicteric, clear oral mm
Neck-supple
CV-reg, no M, +S1/S2
Lungs-clear B/L
Abd-soft, NT, ND
Ext-no edema
Musculoskeletal-no cyanosis, clubbing
Skin-warm and dry
Neuro-grossly non-focal
Psych-calm, cooperative
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
- IV PPI BID
- Patient off aspirin and Xarelto
- Urgent GI consult. N.p.o., IV fluids.
Transfer to IMU. Monitor hemoglobin closely.
Acute on chronic blood loss anemia -due to GI bleed due to GE junction malignancy as above. Hemoglobin down to 6.0 this a.m., 2 units blood ordered. Platelets down to 3000, platelet transfusion ordered.
Stage IV gastric adenocarcinoma
- With metastasis
- Oncology following
Acute on chronic thrombocytopenia - T bili 1.7. Suspect due to XRT/malignancy. Concern for ITP
- transfusion as above.
- Antiphospholipid and platelet associated antibodies ordered. Increased risk of bleeding with prednisone
-IVIG ordered times for 4 days
- Oncology following
Primary hypertension
-Hold meds in the setting of severe anemia and significant decreased appetite.
Hyperlipidemia
-Continue with statin
DVT PPX - SCDs in the setting of severe thrombocytopenia
Code Status - Full code
Discussed with patient eldest daughter over the phone in details
Anticipated Discharge: > 48 hours
Subjective/Interval History
-
Date of Service: July 08, 2024
Patient seen and examined. Episode of hematemesis this morning with nausea. Currently feeling better.
Objective Data
-
Labs:
Laboratory Results
07/08/24
05:23
WBC 4.8
Hgb 6.0 L* D
Hct 16.9 L*
Plt Count 3 L* D
Vital Signs:
Vital Signs
Temp Pulse Resp BP Pulse Ox
97.8 F 114 18 123/87 95
07/08/24 08:32 07/08/24 08:32 07/08/24 08:32 07/08/24 08:32 07/08/24 08:12
I&O
07/07/24 07/08/24 07/09/24
06:59 06:59 06:59
Intake Total 2449 / 2449 1760 / 1760 250 / 250
Output Total 1025 / 1025 350 / 350
Balance 1424 / 1424 1410 / 1410 250 / 250
Review of Systems
-
Unable to obtain full review of systems at this time due to: Language Barrier
History Source: Patient
All other systems: Reviewed and negative
--- NOTE | 2024-07-08 10:23 | CON.GI ---
Addendum entered and electronically signed by Ozzie Limon MD 07/08/24 13:56:
Patient seen and examined, agree with nurse practitioner note. The patient is an unfortunate 64-year-old male with metastatic GE junction cancer. We are consulted for hematemesis. He has had multiple endoscopies showing GE junction mass, most
recently during last admission couple of weeks ago which showed mass with contact oozing. On admission here was found to have profound thrombocytopenia with platelets of 3. He had an episode of bloody emesis. Currently complains of some
epigastric pain though no lightheadedness or dizziness. On exam he does have some epigastric discomfort though no rebound and is nontoxic-appearing.
1. GI bleeding: Secondary to GE junction mass, now in the setting of profound thrombocytopenia. Unfortunately there are no endoscopic interventions indicated in the setting of profound at this time, cytopenia. If he does have significant
improvement in his thrombocytopenia and continued bleeding then could consider hemostatic spray, though again only a temporizing measure, and his active oozing now is more related to his severe thrombocytopenia. He has been receiving radiation, 2
more doses left. Discussed with , will be having family meeting to discuss goals of care.
Original Note:
Consultation
-
Date/Time Consultation Requested: 07/08/24 0946
Date/Time Consultation Performed: 07/08/24 1030
Requesting Provider: Delroy Vick DO
Performing Provider: MAX Varma, Leonidas Limon MD
Reason for Consultation: GI bleed
Medical History
Chief Complaint / HPI
Chief Complaint: weakness, black stools
History of Present Illness:
Pt is a 64yo Citizen Of The [place] speaking male with hx of YAHAIRA, prior femoral bypass and esophageal/gastric cancer in 07/2023. At that time he had EGD with noted large ulcerated mass with bleeding in lower third of esophagus and gastric cardia. Mass with
completely obstructing and partially circumferential involving 2/3 of lumen. At that time he also completed colonoscopy with 3 small polyps. Path from EGD with invasive adeno CA and polyps of ascending colon with fragments of adeno CA with concern
for mets. CT at that time with concern for upper lobe PNA vs mets with gastric wall thickening and adenopathy and follow up PET scan with gastrohepatic, retroperitoneal, b/l hilar and supraclavicular mets. He has been followed by oncology and
completed chemo with good response. He completed EGD 05/[address] Morgan with complaints of worsening GERD, decreased appetite and early satiety with esophageal ulcers and concern for malignant gastric tumor at pylorus, prepyloric region, GE
junction, cardia, and lesser curvature of stomach. He was also noted with gastric stenosis at pylorus.with last PET on on 05/31/24 with increased hypermetabolic activity in distal esophagus and lesser curvature of stomach and numerous new
gastrohepatic and retroperitoneal nodes. Also noted new osseous mets in rib, sternum, thoracic/lumbar spine, sacrum, left iliac bone and right acetabulum and was started on radiation. He presented to 06/13 with abdominal pain and vomiting with
concern for gastric outlet obstruction. He was advised full liquid diet with follow up with Dr. Morgan to consider stenting. However Dr. Dobson preferred pt eval and he was sent to [facility] and family preferred to transfer pt. He completed EGD at
[facility] with stent placement. He presented 06/26-07/01 to [facility] with bleeding. He was noted with anemia severe thrombocytopenia. He was given 3 units PRBC's and 9 units of platelets. During admission he completed EGD with Dr. Rahman with concern for
contact oozing with malignant tumor, patent stent and nothing endoscopically to treat. He stopped Xarelto and ASA and was discharged 07/01 with plan for radiation. He returned 07/05 with anemia with hbg down 7.2 but also severe thrombocytopenia with
concern for possible ITP from Oxaliplatin vs Keytruda. Pt was started on IVIG. Now asked to see as vomited yary blood this am with continued anemia hbg 6 and platelets 3,000.
At this time in review with daughter pt with very poor appetite with few lbs wt loss. He has also had weakness and severe fatigue. He has been complaining of mucous in his throat with cough and gagging at times. He denies diarrhea or
constipation but was noted with stool with some blood today per staff.
Past Medical History
Past Medical History: Other (HTN, Hypercholesterolemia and Other (Esophageal/gastric cancer with stenting at [facility] 05/2024, gastric tumor, DVT))
Past Surgical History: Other (femoral bypass surgery and stenting at [place] )
Social History
Tobacco: Former Smoker
Alcohol: Occasional
Drug: None
Personal:
Living: With Family
Employment: Not Employed
Family History
Family History: Other (? sister with colon CA -- recent without cancer work up )
Allergies / Home Medications
Allergy/AdvReac Type Severity Reaction Status Date / Time
No Known Allergies Allergy Verified 07/05/24 17:48
�Medication �Instructions �Recorded
pantoprazole 40 mg tablet,delayed 40 mg PO BID #60 tabs 07/01/24
release
atorvastatin 40 mg tablet (Lipitor) 40 mg PO QPM 07/05/24
lorazepam 0.5 mg tablet 0.5 mg PO Q6HPRN PRN nausea 07/05/24
ondansetron HCl 8 mg tablet 8 mg PO Q8HPRN PRN nausea 07/05/24
tramadol 50 mg tablet 50 mg PO Q6HPRN PRN moderate 07/05/24
severe pain
valsartan 80 mg tablet 80 mg PO DAILYPRN PRN blood 07/05/24
pressure
Review of Systems
-
Unable to obtain full review of systems at this time due to: Language Barrier (speaks ghanaian )
History Source: Patient and Family
Constitutional: Reports Weight Loss and Fatigue
EENT: Reports No Symptoms
Respiratory: Reports No Symptoms
Cardiac: Reports No Symptoms
Abdomen/GI: Reports Abdominal Pain, Nausea, Diarrhea, Black Stools and Other (hematemesis )
: Reports No Symptoms
Musculoskeletal: Reports No Symptoms
Neurological: Reports Weakness
Endocrine: Reports No Symptoms
Hematologic/Lymphatic: Reports Bleeding
Vital Signs
Temp Pulse Resp BP Pulse Ox
97.6 F 118 18 134/88 95
07/08/24 10:01 07/08/24 10:01 07/08/24 10:01 07/08/24 10:01 07/08/24 08:12
Physical Exam
Exam
General: Other (pale appearing )
HEENT: Normocephalic
Respiratory: Clear
Cardiac: Other (tachy)
GI: Soft, Non Distended, Tender (mild abdominal tenderness ) and Other (hyperactive BS's)
Rectal: Other (s)
Musculoskeletal: No Clubbing and No Cyanosis
Skin: Warm and Dry
Neuro: Awake, Alert, AO x 3 and Other (speak ukranian )
Psych: Calm
Results
WBC 4.8 10^3/uL (4.8-10.8) 07/08/24 05:23
Hgb 6.0 g/dL (13.0-18.0) L* D 07/08/24 05:23
Hct 16.9 % (39.0-52.0) L* 07/08/24 05:23
MCV 86.7 fL (80.0-94.0) 07/08/24 05:23
Plt Count 3 10^3/uL (130-400) L* D 07/08/24 05:23
Absolute Neuts (auto) Cancelled 07/06/24 06:00
Sodium 136 mmol/L (135-145) 07/06/24 05:41
Potassium 3.7 mmol/L (3.5-5.1) 07/06/24 05:41
Chloride 107 mmol/L (98-107) 07/06/24 05:41
Carbon Dioxide 27 mmol/L (22-30) 07/06/24 05:41
BUN 23 mg/dl (9-20) H 07/06/24 05:41
Creatinine 0.7 mg/dL (0.7-1.3) 07/06/24 05:41
Calcium 7.4 mg/dl (8.4-10.2) L 07/06/24 05:41
Diagnostic Image Results:
05/31/24 PT Pet Wbi W/CT Skull-thigh
There is increased hypermetabolic activity along the distal esophagus and lesser curvature the stomach which demonstrates a max SUV of 27.4, previously 8.7. Additionally there is numerous new gastrohepatic and retroperitoneal hypermetabolic lymph
nodes.
There are extensive new or metabolic osseous metastasis involving the anterior right sixth rib, sternum, thoracic and lumbar spine, sacrum, left iliac bone and right acetabulum.
EGD: 05/21/24
Impression: - No gross lesions in the middle third of the
esophagus and in the lower third of the esophagus.
- Esophageal ulcers.
- Malignant gastric tumor at the pylorus, in the
prepyloric region of the stomach, at the
gastroesophageal junction, in the cardia, on the
lesser curvature of the stomach and in the gastric
antrum. Biopsied.
- Gastric stenosis was found at the pylorus.
- Normal duodenal bulb, first portion of the duodenum
and second portion of the duodenum.
Poorly differentiated adenocarcinoma
EGD 08/15/2023
Impression: - Completely obstructing, malignant esophageal tumor
was found in the lower third of the esophagus and in
the cardia. Biopsied.
- Malignant gastric tumor at the gastroesophageal
junction, in the cardia and in the gastric antrum.
Biopsied.
- Normal examined duodenum.
Colonoscopy: 07/2023
Impression: - The examined portion of the ileum was normal.
- One 1 mm polyp at the hepatic flexure, removed with
a jumbo cold forceps. Resected and retrieved.
- Three 5 to 7 mm polyps in the transverse colon and
in the ascending colon, removed with a cold snare.
Resected and retrieved.
- Internal hemorrhoids.
Ascending colon polyp path fragment of adenocarcinoma.
Hepatic flexure polyp/transverse polyp tubular adenoma
Assessment / Plan
-
Pt is a 64yo Citizen Of The [place] speaking male with hx of YAHAIRA, prior femoral bypass and esophageal/gastric cancer in 07/2023 with noted mets to colon. He has been followed by oncology and completed chemo with good response. He completed EGD 05/21 with "L[facility]"Eddie with complaints of worsening GERD, decreased appetite and early satiety with esophageal ulcers and concern for malignant gastric tumor at pylorus, prepyloric region, GE junction, cardia, and lesser curvature of stomach. He was also noted with
gastric stenosis at pylorus and last PET on on 05/31/24 with increased hypermetabolic activity in distal esophagus and lesser curvature of stomach and numerous new gastrohepatic and retroperitoneal nodes. Also noted new osseous mets in rib, sternum,
thoracic/lumbar spine, sacrum, left iliac bone and right acetabulum and was started on radiation. He presented to 06/13 with abdominal pain and vomiting with concern for gastric outlet obstruction. As Dr. Morgan away he went to [facility] with stent
placement. He presented 06/26-07/01 to [facility] with bleeding. He was noted with anemia severe thrombocytopenia. He was given 3 units PRBC's and 9 units of platelets. During admission he completed EGD with Dr. Rahman with concern for contact oozing
with malignant tumor, patent stent and nothing endoscopically to treat. He stopped Xarelto and ASA and was discharged 07/01 with plan for radiation. He returned 07/05 with anemia with hbg down 7.2 but also severe thrombocytopenia with concern for
possible ITP from Oxaliplatin vs Keytruda. Pt was started on IVIG. Now asked to see as vomited yary blood this am with continued anemia hbg 6 and platelets 3,000.
-metastatic esophageal/gastric adeno CA
-hematemesis
-symptomatic anemia
-severe thrombocytopenia with concern for possible med induced ITP
-increased alk phos -- recently noted osseous mets
other medical problems:
-PVD
-hx femoral bypass
PLAN:
etiology of bleeding with hematemesis likely related to tumor burden as noted on EGD 06/28 in setting of severe thrombocytopenia and platelets down to 3,000
agree with transfusion, I reviewed at length with Dr. Draper
will review with Dr. Limon to see if any intervention can be done
reviewed with oncology for continued treatment for low platelets
NPO
IVF
cont IVIG
cont PPI BID
consider goals of care discussion -- reviewed with daughter concern for severity of illness with recurrent bleeding
-
-
Thank you for consultation and allowing me to participate in the patient's care. Please call the data processing consultant GI physician during the after hours with any questions or concerns.
[2024-07-08] MEDS: PROTONIX IV 40 MG IV ×2 (11:09→19:15)
[2024-07-08 11:10] LABS: Beta-2-Glycoprotein I Ab. IgA <10 SAU (<=20); Beta-2-Glycoprotein I Ab. IgG <10 SGU (<=20); Beta-2-Glycoprotein I Ab. IgM <10 SMU (<=20)
[2024-07-08] MEDS: NSS (PRESERVATIVE FREE) 10 ML IV ×2 (11:10→19:15)
[2024-07-08] MEDS: ZOFRAN 4 MG IV (13:20)
--- NOTE | 2024-07-08 13:21 | W.PN.UPDATE ---
Update Note
Progress Note Update
Spoke with daughter this morning, also discussed case at length with Dr. Fontaine.
Pt would be a candidate for single-agent Taxol if his platelets were to recover but so far no response to IVIg.
Family meeting today at 4:30 to discuss prognosis and nex steps in care.
He still has two radiation treatments to go.
--- NOTE | 2024-07-08 15:02 | CM ---
Chart reviewed and patient is now requiring a higher level of care, plan is to transfer patient to IMU today.
Plan; Transfer to IMU.
--- NOTE | 2024-07-08 17:37 | W.PN.ONC2 ---
Addendum entered and electronically signed by Rae Steven MD 07/11/24 13:33:
Pancytopenia is likely due to delayed autoimmune affect of Keytruda.
Original Note:
Today's Communication / Plan
-
Start N-plate and steroids for ITP. Not a conflict with current level of care, and improvement in platelets would improve QOL.
Hospice Consult.
DNR.
Impression
Impression
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
Recurrent GI bleed
Thrombocytopenia, suspect ITP, possibly late effect of Keytruda
Anemia
History of GOO post stent placement
History of lower extremity thrombosis 2021
Plan
Plan
Transfuse hemoglobin less than 8.0 with active bleeding
Platelets not responding to transfusion or IVIg.
Start N-plate.
Steroid steroid for probable immune component.
Held familly meeting to discuss prognosis, after d/w Dr. Fontaine.
Pt with widely metastatic disease, recurrence of primary esophageal tumor, now with recurrent GIB.
He is in the midst of irradiation to the primary tumor and has two treatments left.
Not a candidate for Cyramza due to the bleeding issues, but he is potentially a candidate for Taxol pending normalization of platelets but also recovery of PS to at least PS 2.
Per family he has been declining.
They are ready for comfort care but they are not yet ready to discuss with pt or to translate for me to discusss with pt. They do think he is already aware of the poor prognosis.
Pt is now DNR.
We discussed hospice care and family is amenable to consultation. It is my impression that they would take him home on hospice now but they are reluctant to have this conversation with him.
Subjective/Objective
Chief Complaint
Heme/Onc follow up of Esophageal cancer, ITP, GIB
Subjective
c/o pain medication not lasting the full four hours. c/o nausea not well controlled. He last got nausea medication around noon, nausea now back. He has coughed up some blood today.
Family (2 sons, daughter, ) present to discuss goals of care. They comment that pt has been mostly in the hospital recently.
Vital Signs:
Vital Signs
Temp Pulse Resp BP Pulse Ox
98 F 116 28 126/89 95
07/08/24 17:07 07/08/24 17:07 07/08/24 17:07 07/08/24 17:07 07/08/24 08:12
Lab Results:
Laboratory Data
WBC 4.8 10^3/uL (4.8-10.8) 07/08/24 05:23
Hgb 6.0 g/dL (13.0-18.0) L* D 07/08/24 05:23
Plt Count 3 10^3/uL (130-400) L* D 07/08/24 05:23
eGFR > 60.00 07/06/24 05:41
Physical Exam
Chronically ill-appearing, lying in bed
Pale conjunctiva
Review of Systems
Review of Systems
Constitutional: Reports Fatigue
Head: Reports Sore Throat
Respiratory: Reports Cough and Other (hemoptysis)
Cardiovascular: Denies Chest Pain or Palpitations
Gastrointestinal: Reports Nausea/Vomiting and Other (hematemesis)
Genitourinary: Denies Hematuria
Skin: Denies Rash or Pruritis
Neurological: Denies Headache or Numbness
Psychiatric: Denies Insomnia
Hem/Lymphatic: Reports Easy Bruising; Denies Night Sweats
Orders
Orders
Orders From Last 24 Hours
07/08/24 17:34
DNR Bracelet Application ONCE
07/08/24 17:35
Case Management Consult ONCE
07/08/24 17:35
Code Status As Directed
07/08/24 18:00
Romiplostim [Nplate] 63 mcg Syringe [Syringe Non-Pump] 0 ml SC ONCE
--- NOTE | 2024-07-08 18:03 | PTCARENOTE ---
Received from 4th floor- IMU monitors placed ST 120s on tele, 130/90 94% on RAIR. Pale, sanches skin. Afebrile. LCTA. Had IV Dilaudid prior to arrival pain tolerable 3/10 RLQ abdomen. Pt speaks very little Nauruan- OLIVIA at bedside translating at
this time- Obtaining video weaver narrow fabrics. l
One unit platlets given. Family meeting with Dr. Draper. Labs due- will obtain via sc port.
[2024-07-08] MEDS: LIPITOR PO (18:28)
[2024-07-08] MEDS: NPLATE 0.126 MCG SC (18:28)
[2024-07-08 18:59] LABS: Hematocrit 19.4 % (39.0-52.0); Hemoglobin 7.1 g/dL (13.0-18.0); Mean Corp Hgb Conc. 36.6 g/dL (33.0-37.0); Mean Corpuscular Hgb 28.3 pg (27.0-31.0); Mean Corpuscular Volume 77.3 fL (80.0-94.0); Mean Platelet Volume 11.4 fL (7.4-10.4); Platelet Count 16 10^3/uL (130-400); Red Blood Cell Count 2.51 10^6/uL (4.70-6.10); Red Cell Dist. Width 17.6 % (11.5-14.5); White Blood Cell Count 3.6 10^3/uL (4.8-10.8)
--- NOTE | 2024-07-08 19:14 | PTCARENOTE ---
Resumed IVF, Lab drawn and sent.
[2024-07-08 19:37] LABS: Absolute Neutrophils -Man Diff 2.9 10^3/uL (1.4-6.5); Band Neutrophils 10 % (0-3); Eosinophils 1 % (0-6); Lymphocytes 4 % (20-51); Metamyelocytes 4 % (-); Monocytes 8 % (2-9); Platelets Checked Yes; Segmented Neutrophils 73 % (42-75)
[2024-07-08 19:38] LABS: Nucleated Red Blood Cells 5 (-); Total Cells Counted 100
[2024-07-08] MEDS: GAMMAGARD 50 IV (20:56)
[2024-07-08] MEDS: GAMMAGARD 200 IV (21:07)
--- NOTE | 2024-07-08 22:40 | PTCARENOTE ---
Patient remains ST on the monitor, in the 110's. Awake and alert, speaks little french. Dtr instructed to call her with any needs at any time. Video locomotive crane operator helper obtained and at bedside as well. Gammagard started earlier this shift, continues at this
time. Patient tolerating well. PRN Dilaudid administered at start of shift for 10/10 pain to abdomen. Patient confirms effectiveness within the hour after administration. Patient using urinal at bedside, instructed to call as needed. Will continue
to monitor patient closely. Call swanson within reach.
[2024-07-08 23:59] LABS: Cardiolipin IgA Antibody <10 APL (<=11); Cardiolipin IgM Antibody <10 MPL (<=12); Cardiolipin Igg Antibody <10 GPL (<=14)
[2024-07-09] VITALS (11 sets, daily range): BP systolic 126–147; BP diastolic 80–94
--- NOTE | 2024-07-09 01:21 | PTCARENOTE ---
Near end of Gammagard infusion, patients pulse ox was in the mid 80's, sustained. No SOB, no STRAUSS, but however unable to increase pox with positioning and deep breathing. Notified MAX Trejo, and started on 2L o2 n/c, increased to 4L o2
n/c for pox 95%. Video life science research assistant contacted to review patients symptoms and any concerns. Patient denies sob and states that his pain increases to 10/10 at times, and confirm that prn pain medication helps relieve pain a great deal. RN reviewed use
of call swanson and orientation to unit at that time as well. Patient with no further questions or concerns. Will monitor patient closely and utilize video life science research assistant as needed.
[2024-07-09 01:33] LABS: Phosphatidylserine Ab, IgA 1 APS (0-19); Phosphatidylserine Ab, IgG 0 GPS (0-15); Phosphatidylserine Ab, IgM 5 MPS (0-21)
[2024-07-09] MEDS: ZOFRAN 4 MG IV (01:47)
[2024-07-09] MEDS: D5LR 1000 IV (01:48)
[2024-07-09] MEDS: DILAUDID 0.5 MG IV ×2 (04:18→08:11)
[2024-07-09 05:29] LABS: Hemoglobin 5.9 g/dL (13.0-18.0); Mean Corp Hgb Conc. 34.7 g/dL (33.0-37.0); Mean Corpuscular Hgb 27.2 pg (27.0-31.0); Mean Corpuscular Volume 78.3 fL (80.0-94.0); Platelet Count 12 10^3/uL (130-400); Red Blood Cell Count 2.17 10^6/uL (4.70-6.10); Red Cell Dist. Width 18.3 % (11.5-14.5); White Blood Cell Count 2.8 10^3/uL (4.8-10.8)
[2024-07-09 07:09] LABS: Absolute Neutrophils -Man Diff 2.3 10^3/uL (1.4-6.5); Band Neutrophils 2 % (0-3); Lymphocytes 11 % (20-51); Monocytes 1 % (2-9); Segmented Neutrophils 83 % (42-75)
[2024-07-09 07:10] LABS: Anisocytosis 2+; Eosinophils 1 % (0-6); Metamyelocytes 2 % (-); Microcytosis 2+; Normal RBC Morphology No; Platelets Checked Yes
[2024-07-09 07:12] LABS: Total Cells Counted 100
[2024-07-09] MEDS: D5LR IV (08:00)
[2024-07-09] MEDS: GAMMAGARD IV ×2 (08:00)
[2024-07-09] MEDS: PROTONIX IV 40 MG IV (08:05)
[2024-07-09] MEDS: NSS (PRESERVATIVE FREE) 10 ML IV (08:06)
--- NOTE | 2024-07-09 09:04 | W.PN.HOSP.TC ---
Today's Communication/Plan
-
Hospice consult
Discharge planning
Assessment / Plan
Assessment / Plan
Gen-AAOx3, NAD
HEENT-NC, AT, anicteric, clear oral mm
Neck-supple
CV-reg, no M, +S1/S2
Lungs-clear B/L
Abd-soft, NT, ND
Ext-no edema
Musculoskeletal-no cyanosis, clubbing
Skin-warm and dry
Neuro-grossly non-focal
Psych-calm, cooperative
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
- IV PPI BID
- Patient off aspirin and Xarelto
High risk for rebleeding given extensive disease and pancytopenia.
Input of GI and oncology noted. Family moving towards home hospice and would like to take him home today. Hospice has been consulted.
Acute on chronic blood loss anemia -due to GI bleed due to GE junction malignancy as above. Hemoglobin has not changed despite transfusion, romiplostim dose. Platelet count remains at 12,000.
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
Stage IV gastric adenocarcinoma
- With metastasis
- Oncology following
Acute on chronic thrombocytopenia - T bili 1.7. Suspect due to XRT/malignancy. Concern for ITP
- transfusion as above.
- Antiphospholipid and platelet associated antibodies ordered. Increased risk of bleeding with prednisone
-IVIG ordered times for 4 days
- Oncology following
Primary hypertension
-Hold meds in the setting of severe anemia and significant decreased appetite.
Hyperlipidemia
-Continue with statin
DVT PPX - SCDs in the setting of severe thrombocytopenia
DNR
Dispo -hopefully we can discharge home on hospice today per family wishes. Apparently family is hesitant to speak with patient regarding hospice.
Will need to transition antiemetics and analgesics to oral prior to discharge.
Anticipated Discharge: Today
Subjective/Interval History
-
Date of Service: July 09, 2024
Patient seen and examined. Complaining of nausea and abdominal pain.
Objective Data
-
Labs:
Laboratory Results
07/09/24
04:31
WBC 2.8 L
Hgb 5.9 L*
Hct 17.0 L*
Plt Count 12 L* D
Vital Signs:
Vital Signs
Temp Pulse Resp BP Pulse Ox
98.8 F 104 29 134/83 94
07/09/24 07:36 07/09/24 08:00 07/09/24 08:00 07/09/24 08:00 07/09/24 07:00
I&O
07/08/24 07/09/24 07/10/24
06:59 06:59 06:59
Intake Total 1760 / 1760 2092
Output Total 350 / 350 800 / 800
Balance 1410 / 1410 1293 / 1293
Review of Systems
-
History Source: Patient
All other systems: Reviewed and negative
--- NOTE | 2024-07-09 09:19 | HOSPNOTE ---
Daughter will speak with family about hospice and the philosophy. The daughter understands this is making end of life decisions and patient can go home with daughter being primary caregiver however the patient may continue to vomit and pain
management may be an issue. The patient may also remain in the hospital inpatient hospice for pain management. The daughter will call me back in thirty minutes after she speaks with family. More information to follow.
--- NOTE | 2024-07-09 09:39 | PN.CDI ---
CDI
- -
CDI:
Physician Documentation Request
Admit Date: 07/05/24 19:49
Dear Oncology,
Please review the following and provide your response in the progress notes.
Clinical Indicators:
- Patient admit for recurrent GI bleed due to Stage IV GE junction adenocarcinoma
- 07/08 Oncology 'gastric adenocarcinoma, pyloric stenosis status post stenting, status post radiation treatment and chemo for the gastric cancer'
- 07/09 PN indicates pancytopenia
Laboratory Tests
07/06/24 07/08/24 07/09/24
01:42 18:22 04:31
WBC 4.6 L 3.6 L 2.8 L
RBC 2.44 L 2.51 L 2.17 L
Plt Count 6 L* D 16 L* D 12 L* D
Please clarify the relationship between these conditions:
Yes, _pancytopenia__ is related to/associated with/due to _chemo__.
No, _pancytopenia__ is not related to/associated with/due to _chemo__ but it is due to . (Please specify)
Unable to determine
Use of terms such as suspected, likely, concern for, or probable (associated with a specific diagnosis that is being evaluated, monitored, or treated as if it exists) are acceptable and can be coded in the inpatient setting, when documented at the
time of discharge.
Thank you,
Jimi Guevara RN
CDI Specialist
Please use your independent medical judgment in providing your response.
--- NOTE | 2024-07-09 09:42 | W.DS.TRANS ---
DC Summary - World Language Teacher
-
Discharge Instructions:
Instructions:
Stand-Alone Forms:
Changes to Home Medications: No
Discharge Medications:
DC Medications w/original date entered in [employer]
pantoprazole 40 mg tablet,delayed release 40 mg PO BID #60 tabs 07/01/24
atorvastatin 40 mg tablet (Lipitor) 40 mg PO QPM 07/05/24
lorazepam 0.5 mg tablet 0.5 mg PO Q6HPRN PRN nausea 07/05/24
ondansetron HCl 8 mg tablet 8 mg PO Q8HPRN PRN nausea 07/05/24
tramadol 50 mg tablet 50 mg PO Q6HPRN PRN moderate severe pain 07/05/24
valsartan 80 mg tablet 80 mg PO DAILYPRN PRN blood pressure 07/05/24
Home Medication Changes
Pending Results: No
--- NOTE | 2024-07-09 10:25 | CM ---
Ukranian speaking patient with Hx Stage IV gastric adenocarcinoma with metastasis with Dx Acute upper GI bleed, anemia
CM Consult: Hospice
Met with [facility]; she already contacted the family who agreed with inpatient hospice.
Attempted to meet with patient who was being seen by learning disabled teacher.
Spoke with patient's daughter Carmita;
daughter already spoke with Hospice nurse and agreed with the patient staying here with hospice.
Daughter is planning on coming in today.
Offered ethnographic materials conservator support and daughter declined.
Plan GIP Hospice.
--- NOTE | 2024-07-09 10:43 | W.PN.GI.CBS2 ---
Today's Communication / Plan
-
Pt for d/c to hospice today
Given his low platelet count, options are limited. Endoscopy to treat tumor bleeding make provoke more bleeding than stop. Any intervention would only be temporary
Agree with plans for hospice given poor overall prognosis
Assessment / Plan
-
Pt is a 64yo Bhutanese speaking male with hx of YAHAIRA, prior femoral bypass and esophageal/gastric cancer in 07/2023 with noted mets to colon. He has been followed by oncology and completed chemo with good response. He completed EGD 05/21 with "Lorin"Eddie with complaints of worsening GERD, decreased appetite and early satiety with esophageal ulcers and concern for malignant gastric tumor at pylorus, prepyloric region, GE junction, cardia, and lesser curvature of stomach. He was also noted with
gastric stenosis at pylorus and last PET on on 05/31/24 with increased hypermetabolic activity in distal esophagus and lesser curvature of stomach and numerous new gastrohepatic and retroperitoneal nodes. Also noted new osseous mets in rib, sternum,
thoracic/lumbar spine, sacrum, left iliac bone and right acetabulum and was started on radiation. He presented to 06/13 with abdominal pain and vomiting with concern for gastric outlet obstruction. As Dr. Morgan away he went to [facility] with stent
placement. He presented 06/26-07/01 to [place] with bleeding. He was noted with anemia severe thrombocytopenia. He was given 3 units PRBC's and 9 units of platelets. During admission he completed EGD with Dr. Rahman with concern for contact oozing
with malignant tumor, patent stent and nothing endoscopically to treat. He stopped Xarelto and ASA and was discharged 07/01 with plan for radiation. He returned 07/05 with anemia with hbg down 7.2 but also severe thrombocytopenia with concern for
possible ITP from Oxaliplatin vs Keytruda. Pt was started on IVIG. Now asked to see as vomited yary blood this am with continued anemia hbg 6 and platelets 3,000.
-metastatic esophageal/gastric adeno CA
-hematemesis
-symptomatic anemia
-severe thrombocytopenia with concern for possible med induced ITP
-increased alk phos -- recently noted osseous mets
other medical problems:
-PVD
-hx femoral bypass
Subjective
Subjective
Date of Service: July 09, 2024
[facility] No bleeding per RN
Objective
Data Reviewed
Laboratory Data:
Laboratory Results
07/09/24 04:31
07/06/24 05:41
Vital Signs and I&O:
Vital Signs
Temp Pulse Resp BP Pulse Ox
98.8 F 104 29 134/83 94
07/09/24 07:36 07/09/24 08:00 07/09/24 08:00 07/09/24 08:00 07/09/24 07:00
I&O
07/08/24 07/09/24 07/10/24
06:59 06:59 06:59
Intake Total 1760 / 1760 2092
Output Total 350 / 350 800 / 800
Balance 1410 / 1410 1293 / 1293
Physical Exam
Physical Exam
GI: Soft and Non Tender
--- NOTE | 2024-07-09 13:09 | PTCARENOTE ---
DC to hospice
== END 2024-07-09 11:42 | disposition hospice, inpatient (51) | DRG 374 ==
LOC: IMU 19:49
PROVIDERS: Hospitalist; Nurse Practitioner Family; Nurse Practitioner Gerontology; ADMITTING PHYSICIAN Internal Medicine; ATTENDING PHYSICIAN Hospitalist; CONSULT PHYSICIAN Internal Medicine Gastroenterology; CONSULT PHYSICIAN Internal Medicine Hematology & Oncology; EMERGENCY PHYSICIAN Emergency Medicine; FAMILY PHYSICIAN Internal Medicine
PROC: 30233N1 Transfusion of Nonautologous Red Blood Cells into Peripheral Vein, Percutaneous Approach (ICD-10-PCS; 2024-07-05)
PROC: 30233R1 Transfusion of Nonautologous Platelets into Peripheral Vein, Percutaneous Approach (ICD-10-PCS; 2024-07-06)
DX: C16.0 Malignant neoplasm of cardia (principal); D61.810 Antineoplastic chemotherapy induced pancytopenia; C79.51 Secondary malignant neoplasm of bone; K31.1 Adult hypertrophic pyloric stenosis; I10 Essential (primary) hypertension; Z92.3 Personal history of irradiation; E78.00 Pure hypercholesterolemia, unspecified; Z87.891 Personal history of nicotine dependence; D50.0 Iron deficiency anemia secondary to blood loss (chronic); I73.9 Peripheral vascular disease, unspecified; K63.5 Polyp of colon; K64.8 Other hemorrhoids; Z86.718 Personal history of other venous thrombosis and embolism
CPT/HCPCS: 80048; 80053; 83735; 85025; 85027; 86023; 86146; 86147; 86148; 86850; 86900; 86901; 86920; 96374; 99291; J1569; J2802; P9016; P9073

== ENCOUNTER 2024-07-09 11:42 | Inpatient (IN) | payer OTHER, SELFPAY ==
--- NOTE | 2024-07-09 11:41 | HOSPNOTE ---
Patient is admitted inpatient hospice for pain management. We will see patient daily. Attending and CM aware of plan and in agreement.
[2024-07-09] MEDS: MORPHINE SULFATE 4 MG IV ×3 (12:12→20:23)
[2024-07-09 12:45] VITALS: BP 134/97
--- NOTE | 2024-07-09 12:53 | ADM.HSP ---
Admission - Hospice
History of Present Illness
64-year-old male with metastatic GE junction adenocarcinoma, multiple recent hospitalizations most recent of which was July 05 until July 09. Reason for hospitalization was for recurrent GI bleed and pancytopenia. Had significant hematemesis due to
the known malignancy with significant blood loss anemia requiring transfusion.
Decision made during that hospitalization to transition to hospice as per oncology recommendation.
We are now admitting him to inpatient hospice at [facility].
Reason for Hospice Admission
Metastatic gastric adenocarcinoma
Review of Systems
History Source: Patient
All other systems: Reviewed and Negative
GI: Abdominal Pain and Nausea
Physical Exam
Pulse Resp BP Pulse Ox
99 22 134/97 96
07/09/24 12:45 07/09/24 12:45 07/09/24 12:45 07/09/24 12:45
General: Well Developed, Well Nourished, No Apparent Distress and Comfortable
Respiratory: Clear to Auscultation
Cardiology: Regular Rhythm and S1/S2
GI: Soft, Nontender and Nondistended
Musculoskeletal: No Clubbing, No Cyanosis and No Edema
Skin: Warm and Dry
Neuro: Awake and Alert
Hematologic/Lymphatic: No Lymphadenopathy
Psych: Calm
Assessment/Medication Plan
Generic Name Dose Route Start Last Admin
Trade Name Freq PRN Reason Stop Dose Admin
Glycopyrrolate 0.2 mg 07/09/24 11:32
Glycopyrrolate 0.2 Mg/Ml Vial IV 08/06/24 11:31
Q4HPRN PRN
excessive secretions
Hyoscyamine Sulfate 0.125 mg 07/09/24 11:32
Hyoscyamine Sulfate 0.125 Mg/Ml In Oral Syringe SL 08/06/24 11:31
Q4HPRN PRN
excessive secretions
Morphine Sulfate/Sodium Chloride 100 mg in 100 mls @ 0 mls/hr 07/09/24 11:45
Morphine IV
PER PROTOCOL LARRY
Protocol
Per Protocol
Lorazepam 1 mg 07/09/24 11:32
Lorazepam 2 Mg/Ml Vial IV 08/06/24 11:31
Q2HPRN PRN
anxiety
Protocol
Morphine Sulfate 4 mg 07/09/24 11:32 07/09/24 12:12
Morphine 2 Mg/Ml Syringe IV 07/23/24 11:31 4 mg
Q1HPRN PRN Administration
moderate-severe pain / dyspnea
Morphine Sulfate 0 mg 07/09/24 11:32
Morphine 2 Mg/Ml Syringe IV 07/23/24 11:31
[id number] PRN
moderate-severe pain / dyspnea
Protocol
Ondansetron HCl 4 mg 07/09/24 11:32
Ondansetron 4 Mg/2 Ml Vial IV 08/06/24 11:31
Q6HPRN PRN
nausea/vomiting
Pharmacy Profile Note 0 unit 07/09/24 12:[address] 1 Unit IV 08/06/24 11:59
DIRECTED LARRY
Sodium Chloride 0 flush 07/09/24 12:00
Sodium Chloride 0.9% (Flush) Syringe IV 08/06/24 11:59
PER PROTOCOL LARRY
Sodium Chloride 0.5 ml 07/09/24 12:00
Nss (Pf) 10 Ml Vial For Ativan 1 Mg Dose IV 08/06/24 11:59
Q2HPRN PRN
IV LORAZEPAM DILUTION
Metastatic gastric adenocarcinoma -at GE junction. Has known metastases to bone, lymph nodes, colon.
Seen by oncology during recent hospitalization with recommendation for hospice.
Received red blood cell and platelet transfusions without improvement in counts. Also received a dose of Nplate.
Admit to inpatient hospice. Comfort measures initiated. IV morphine as needed. Family in agreement with hospice.
DNR
--- NOTE | 2024-07-09 13:01 | PTCARENOTE ---
Signed onto hospice, Morphine given x1 so far. Monitors removed, Vs noted. O2 4L weaned to 1L - will attempt further. Ice chips requested and provided. daughter at bedside.
[2024-07-09] MEDS: ZOFRAN 4 MG IV ×2 (14:44→20:22)
[2024-07-09 17:00] VITALS: BP 115/76
--- NOTE | 2024-07-09 17:25 | CM ---
Ukranian speaking patient with Hx Stage IV gastric adenocarcinoma with metastasis with Dx Acute upper GI bleed, anemia
CM Consult: Hospice
Met with [facility]; she already contacted the family who agreed with inpatient hospice.
Attempted to meet with patient who was being seen by grain thresher.
Spoke with patient's daughter Carmita;
daughter already spoke with Hospice nurse and agreed with the patient staying here with hospice.
Daughter is planning on coming in today.
Offered lump receiver support and daughter declined.
Plan GIP Hospice.
--- NOTE | 2024-07-09 18:27 | PTCARENOTE ---
pt transferred to from IMU at 1650. pt was x2 assist to the bedside commode. language line within the room and daughter at bedside. pt with large bloody stool on commode.
[2024-07-09 19:05] VITALS: BP 105/63
[2024-07-10] MEDS: ATIVAN 1 MG IV ×4 (01:14→21:49)
[2024-07-10] MEDS: MORPHINE SULFATE 4 MG IV ×7 (01:47→22:45)
[2024-07-10 07:00] VITALS: BP 129/79
[2024-07-10] MEDS: NSS (PRESERVATIVE FREE) 0.5 ML IV ×2 (08:11→21:49)
[2024-07-10] MEDS: MORPHINE 100 IV (10:38)
[2024-07-10] MEDS: MORPHINE SULFATE 2 MG IV ×4 (10:49→15:14)
--- NOTE | 2024-07-10 11:11 | CM ---
Pt is admitted for inpatient hospice with hospice GIP.
CM is available for emotional support.
--- NOTE | 2024-07-10 11:30 | HOSPNOTE ---
Patient is extremely uncomfortable and will be started on a morphine drip. Son was present and I explained the reasoning to start a drip and he was in agreement. Emotional support provided. Patient continues to be inpatient appropriate for pain
management and agitation.
--- NOTE | 2024-07-10 11:35 | W.PN.HOSP.TC ---
Today's Communication/Plan
-
Transition to morphine infusion
Assessment / Plan
Assessment / Plan
Gen-unresponsive
HEENT-NC, AT, anicteric, clear oral mm
Neck-supple
CV-reg, no M, +S1/S2
Lungs-clear B/L
Abd-soft, NT, ND
Ext-no edema
Musculoskeletal-no cyanosis, clubbing
Skin-warm and dry
End-of-life care -transition from IV morphine as needed to morphine infusion. Discussed with hospice nurse and patient's bedside nurse. Discussed with patient's son. Continue IV Ativan as needed for agitation and anxiety.
Continue hospice care.
DNR
Anticipated Discharge: Within 24 hours
Subjective/Interval History
-
Date of Service: July 10, 2024
Patient seen and examined. Remains unresponsive, looks fairly comfortable. Was just medicated with IV morphine.
Objective Data
-
Vital Signs:
Vital Signs
Temp Pulse Resp BP Pulse Ox
97.5 F 101 18 129/79 98
07/10/24 07:00 07/10/24 07:00 07/10/24 07:00 07/10/24 07:00 07/10/24 07:00
Review of Systems
-
Unable to obtain full review of systems at this time due to: Acuity
--- NOTE | 2024-07-10 17:33 | HOSPNOTE ---
Satish was sleeping, non-responsive. He did not show signs of pain, though his breathing was somewhat labored. Carmina and daughter Carmita were present. Carmita shared background about her father, who is strong in spirit, very caring, always giving
good example to his family. Geoscience Laboratory Technician provided emotional and spiritual support through presence, dialogue, Scripture reading and prayer. Contacted Sctimothy Crespo of [facility] to provide Sacrament of the Sick, per family's request. [facility] agreed to come at
8:30pm. Prayer blanket provided. Geoscience Laboratory Technician will continue support through visits 2x/week, remaining available to patient and family as needed..
[2024-07-10 19:48] VITALS: BP 106/71
[2024-07-11] MEDS: MORPHINE SULFATE 4 MG IV ×3 (00:41→01:42)
[2024-07-11] MEDS: NSS (PRESERVATIVE FREE) 0.5 ML IV ×2 (01:42→03:46)
[2024-07-11] MEDS: ATIVAN 1 MG IV ×2 (01:42→03:46)
[2024-07-11] MEDS: MORPHINE SULFATE 6 MG IV ×2 (02:12→02:40)
[2024-07-11] MEDS: MORPHINE SULFATE 8 MG IV ×2 (03:03→03:46)
--- NOTE | 2024-07-11 05:21 | W.PN.DEATH ---
Pronouncement of
-
Called to see patient to pronounce.
No spontaneous heart tones or respirations noted.
Patient not responsive to verbal stimuli.
Patient is pronounced .
Time of : 04:05
Date of : 07/11/24
Cause of : Metastatic GE junction adenocarcinoma.
Recurrent gastrointestinal bleeding.
Metastases to bone, lymph nodes, colon
Family Notified: Yes (Daughter at bedside)
== END 2024-07-11 04:05 | disposition expired | DRG 951 ==
LOC: 2 NORTH 11:42
PROVIDERS: ADMITTING PHYSICIAN Hospitalist
DX: Z51.5 Encounter for palliative care (principal); C16.0 Malignant neoplasm of cardia; C79.51 Secondary malignant neoplasm of bone; D61.818 Other pancytopenia; K92.0 Hematemesis; D62 Acute posthemorrhagic anemia